=== PATIENT | female | born 1945 | race Hispanic/Latino ===

== ENCOUNTER 2023-10-16 08:45 | Emergency (ER) | payer OTHER ==
--- OUTSIDE RECORDS SUMMARY | 2023-10-16 08:57 | XMS REPORT | Continuity of Care Document ---
Author Name Unknown Address [address] [facility]. [address] [place] [address] [facility] thconnect Address [address] [facility] [address] [place] [address] Care Team Providers Care Principal Archaeologist Name Role Phone Ines Grimm Primary Care Physician [phone] Ines Grimm Attending Clinician Unavailable Deja Galvan Attending Clinician Unavailable DELPHINE TOLENTINO Attending Clinician UnavailLAKISHA Cantrell Attending Clinician Unavailable Lakisha Tompkins Attending Clinician [phone] Flynn Hernandez MD Attending Clinician [phone] Doctor Unassigned, [place] Attending Clinician Hilario Payan MD Attending Clinician [phone] HILARIO ALONZO Attending Clinician UnavailItalia Taylor MD Attending Clinician [phone] Manish Estrella - Db Attending Clinician Unavailable Tomas Rodarte MD Attending Clinician [phone] LORENA PIPER Attending Clinician Lorena Mckee MD Attending Clinician [phone] Therapy, [facility] Attending Clinician Unavailable Marlon Bernal MD Attending Clinician [phone] MARLON BERNAL Attending Clinician Unavailable Karime Dinh Attending Clinician [phone] Lab, [facility] Attending Clinician UnavailLatoya Benton Attending Clinician [phone] LATOYA ANGEL Attending Clinician UnavailFLYNN Ko Admitting Clinician LORENA Durán Admitting Clinician Esther fernandez Payers Payer Name Policy Type Policy Number Effective Date Expirati on Date Source 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 2021-07 00:00: 00 [facility] Acquired hypothyroi dism Acquired hypothyroi dism Disease Active 2021-07 00:00: 00 [facility] 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 2021-07 00:00: 00 [facility] BMI 32.0-32.9, adult BMI 32.0-32.9, adult Disease Active 2021-07 00:00: 00 [facility] Right knee pain Right knee pain Disease Active 10-28 00:00: 00 [facility] Right knee pain Right knee pain Disease Active 10-28 00:00: 00 [facility] [id number] Hepatic steatosis Problem [facility] Gastroesop hageal reflux disease GERD (gastroeso phageal reflux disease) Problem [facility] Hypertensi on HTN (hypertens ion) Problem [facility] Hypothyroi dism Hypothyroi dism Problem [facility] Neuropathy Neuropathy Problem [facility] Hyperlipid emia Hyperlipid emia Problem [facility] Asthma Asthma Problem [facility] Mixed anxiety and depressive disorder Depression with anxiety Problem [facility] [id number] Peripheral vascular disease, unspecifie d Problem [facility] Overactive bladder Overactive bladder Problem [facility] Screening for osteoporos is Screening for osteoporos is Problem [facility] [id number] Adult general medical exam Problem [facility] Primary osteoarthr itis Primary osteoarthr itis involving multiple joints Problem [facility] [id number] Type 2 diabetes mellitus with diabetic chronic kidney disease Problem [facility] [id number] Seasonal allergic rhinitis, unspecifie d trigger Problem [facility] Type II diabetes mellitus without complicati on Controlled type 2 diabetes mellitus without complicati on, unspecifie d 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 status Problem [facility] Mixed incontinen ce Mixed stress and urge urinary incontinen ce Problem [facility] Osteoarthr itis Osteoarthr itis Problem [facility] [id number] Primary osteoarthr itis of both knees Problem [facility] [id number] Carpal tunnel syndrome of right wrist Problem [facility] [id number] Hot flashes due to menopause Problem [facility] [id number] Adrenal insufficie ncy Problem [facility] Chronic kidney disease Chronic kidney disease Problem [facility] [id number] Tinnitus of right ear Problem [facility] Allergies, Adverse Reactions, Alerts Allergy Name Allergy Type Status Severity Reaction(s) Onset Date Inactive Date Treating Clinician Comments Source Codeine Allergy to substanc e Active Hallucinatio ns 4-16 00:00: 00 Other reaction( s): Unknown - See comments hallucina tions Data migrated from xTV on 09/19/15. Originall y documente d as CODEINE. [facility] CODEINE DRUG INGREDI Active Unknown-Cmnt 11-02 00:00: 00 [facility] Codeine Propensi ty to adverse reaction s Active Unknown - See comments 11-02 00:00: 00 hallucina tions [facility] codeine codeine Active hallucinatio ns Common [facility] Social History Social Habit Start Date Stop Date Quantity Comments Source History of tobacco use Cigarette Smoker [facility] Sexual orientation [facility] Alcoholic beverage intake 2023-09-29 00:00:00 2023-09-29 00:00:00 Lifetime non-drinker (finding) [facility] Tobacco use and exposure 2023-09-28 00:00:00 2023-09-28 00:00:00 Smokeless tobacco non-user [facility] Exposure to SARS-CoV-2 (event) 2022-11-09 00:00:00 2022-11-19 14:31:00 Not sure [facility] Alcohol intake 2022-11-19 00:00:00 2022-11-19 00:00:00 Lifetime non-drinker (finding) [facility] History of Social function 2022-11-19 00:00:00 2022-11-19 00:00:00 [facility] Tobacco Comment 2022-10-31 00:00:00 2022-10-31 00:00:00 Quit [address] [facility] Sex assigned at 1945 00:00:00 1945 00:00:00 [facility] Smoking Status Start Date Stop Date Source Unknown if ever smoked Commo n [facility] Ex-smoker 2023-09-28 00:00:00 2023-09-28 00:00:00 [facility] Medications Ordered Medication Name Filled Medication Name Start Date Stop Date Current Medication? Ordering Clinician Indication Dosage Frequency Signature (SIG) Comments Components Source solifenacin (VESIcare) 10 MG tablet 09-27 10:10: 28 Yes 10mg QD Take 10 mg by mouth 1 (one) time each day. Swallow tablet whole; do not crush, chew, or split. [facility] montelukast (Singulair) 10 MG tablet 09-27 10:05: 06 09-27 00:00 :00 No 1 (one) time each day at the same time. [facility] losartan (Cozaar) 100 MG tablet 09-27 10:04: 58 Yes 1{tbl} QD Take 1 tablet by mouth 1 (one) time each day. [facility] latanoprost (Xalatan) 0.005 % ophthalmic solution 09-27 10:04: 39 Yes 1 (one) time each day at the same time. [facility] glucose blood (Accu-Chek Danyell Plus) test strip 09-27 10:03: 09 Yes USE DIRECTED TO CHECK BLOOD GLUCOSE TWICE DAILY [facility] glipiZIDE (Glucotrol) 10 MG tablet 09-27 10:03: 03 Yes 10mg Take 10 mg by mouth in the morning and 10 mg in the evening. Take before meals. [facility] gabapentin (Neurontin) 100 MG capsule 09-27 10:03: 01 Yes 200mg Take 200 mg by mouth every night. [facility] estradiol (Estrace) 0.5 MG tablet 09-27 10:02: 40 09-27 00:00 :00 No 0.5 mg tablet [facility] empaglifloz in (Jardiance) 10 MG 09-27 10:02: 26 Yes 10mg QD Take 10 mg by mouth 1 (one) time each day. [facility] bisoprolol- hydroCHLORO thiazide (Ziac) 10-6.25 MG tablet 09-27 10:02: 23 Yes 1{tbl} 1 tablet. [facility] atorvastati n (Lipitor) 40 MG tablet 09-27 10:02: 16 Yes 1{tbl} 1 tablet. [facility] aspirin 81 MG chewable tablet 09-27 10:02: 11 Yes QD Chew 1 (one) time each day. [facility] amLODIPine (Norvasc) 5 MG tablet 09-27 10:02: 09 Yes 1{tbl} 1 tablet. [facility] levothyroxi ne (Synthroid, Levoxyl) 88 MCG tablet 09-27 00:00: 00 09-23 05:59 :00 Yes [id number] 88ug Take 1 tablet (88 mcg total) by mouth 1 (one) time each day before breakfast. [facility] hydrocortis one (Cortef) 5 MG tablet 2022-07 00:00: 00 11-18 04:59 :00 No [id number] Take 3 tablets (15 mg total) by mouth 1 (one) time each day in the morning AND 1 tablet (5 mg total) 1 (one) time each day before evening meal. Take 15mg at 8AM and 5mg at 3PM.. [facility] traMADoL 50 mg tablet 11-05 00:00: 00 11-13 04:59 :00 No [id number] 50mg Take 1 tablet by mouth every 6 (six) hours as needed for Pain (scale 4-6) for up to 7 days. Indication s: acute pain [facility] traMADoL 50 mg tablet 11-05 00:00: 00 11-13 04:59 :00 No [id number] 50mg Take 1 tablet by mouth every 6 (six) hours as needed for Pain (scale 4-6) for up to 7 days. Indication s: acute pain [facility] levothyroxi ne (Synthroid, Levoxyl) 88 MCG tablet 11-04 00:00: 00 10-30 04:59 :00 No [id number] 88ug Take 1 tablet (88 mcg total) by mouth 1 (one) time each day before breakfast. [facility] levothyroxi ne (Synthroid, Levoxyl) 88 MCG tablet 11-04 00:00: 00 10-30 04:59 :00 No [id number] 88ug Take 1 tablet (88 mcg total) by mouth 1 (one) time each day before breakfast. [facility] levothyroxi ne (Synthroid, Levoxyl) 88 MCG tablet 11-04 00:00: 00 09-27 00:00 :00 No [id number] 88ug Take 1 tablet (88 mcg total) by mouth 1 (one) time each day before breakfast. [facility] hydrocortis one (Cortef) 5 MG tablet 2023-0 4-18 00:00: 00 05-04 04:59 :00 No [id number] Take 3 tablets (15 mg total) by mouth 1 (one) time each day in the morning AND 1 tablet (5 mg total) 1 (one) time each day before evening meal. Take 15mg at 8AM and 5mg at 3PM.. [facility] hydrocortis one (Cortef) 5 MG tablet 18 00:00: 00 05-04 04:59 :00 No [id number] Take 3 tablets (15 mg total) by mouth 1 (one) time each day in the morning AND 1 tablet (5 mg total) 1 (one) time each day before evening meal. Take 15mg at 8AM and 5mg at 3PM.. [facility] magnesium oxide (Mag-Ox) 400 MG tablet 2021-07 12:50: 21 07-08 00:00 :00 No 1 (one) time each day at the same time. [facility] Syringe/Nee dle, Disp, (Luer Lock Safety Syringes) 21G X 1-1/2" 3 ML [facility] 2021-07 00:00: 00 Yes [id number] To draw up Solu-Steven f [facility] Needle, Disp, (Hypodermic Needle) 23G X 1" [facility] 2021-0720 00:00: 00 Yes [id number] To administer Solu-Steven f [facility] Syringe/Nee dle, Disp, (Luer Lock Safety Syringes) 21G X 1-1/2" 3 ML [facility] 2021-0720 00:00: 00 Yes [id number] To draw up Solu-Steven f [facility] Needle, Disp, (Hypodermic Needle) 23G X 1" [facility] 2021-0720 00:00: 00 Yes [id number] To administer Solu-Steven f [facility] Syringe/Nee dle, Disp, (Luer Lock Safety Syringes) 21G X 1-1/2" 3 ML [facility] 2021-0720 00:00: 00 Yes [id number] To draw up Solu-Steven f [facility] Needle, Disp, (Hypodermic Needle) 23G X 1" [facility] 2021-07-20 00:00: 00 Yes [id number] To administer Solu-Steven f [facility] Syringe/Nee dle, Disp, (Luer Lock Safety Syringes) 21G X 1-1/2" 3 ML [facility] 2021-07 00:00: 00 Yes [id number] To draw up Solu-Steven f [facility] Needle, Disp, (Hypodermic Needle) 23G X 1" [facility] 2021-07 00:00: 00 Yes [id number] To administer Solu-Steven f [facility] levothyroxi ne (Synthroid, Levoxyl) 88 MCG tablet 2021-07 00:00: 00 07-04 05:59 :00 No [id number] 88ug Take 1 tablet (88 mcg total) by mouth 1 (one) time each day before breakfast. [facility] levothyroxi ne (Synthroid, Levoxyl) 88 MCG tablet 2021-07 00:00: 00 11-04 00:00 :00 No [id number] 88ug Take 1 tablet (88 mcg total) by mouth 1 (one) time each day before breakfast. [facility] Hydrocortis one Sod Suc, PF, (Solu-STEVEN F) 100 MG reconstitut ed solution 2021-07 00:00: 00 07-09 05:59 :00 No [id number] 100mg Inject 100 mg as directed 1 (one) time for 1 dose. In the event of emergency then go to Emergency Room [facility] amLODIPine (Norvasc) 5 MG tablet 2021-07 12:28: 21 Yes 1{tbl} 1 tablet. [facility] aspirin 81 MG chewable tablet 2021-07 12:28: 21 Yes QD Chew 1 (one) time each day. [facility] atorvastati n (Lipitor) 40 MG tablet 2021-07 12:28: 21 Yes 1{tbl} 1 tablet. [facility] bisoprolol- hydroCHLORO thiazide (Ziac) 10-6.25 MG tablet 2021-07 12:28: 21 Yes 1{tbl} 1 tablet. [facility] estradiol (Estrace) 0.5 MG tablet 2021-07 12:28: 21 Yes 0.5 mg tablet [facility] glipiZIDE (Glucotrol) 10 MG tablet 2021-07 12:28: 21 Yes 1{tbl} 1 tablet. [facility] gabapentin (Neurontin) 100 MG capsule 2021-07 12:28: 21 Yes 1{capsu le} 1 capsule. [facility] glucose blood (Accu-Chek Danyell Plus) test strip 2021-07 12:28: 21 Yes USE DIRECTED TO CHECK BLOOD GLUCOSE TWICE DAILY [facility] latanoprost (Xalatan) 0.005 % ophthalmic solution 2021-07 12:28: 21 Yes 1 (one) time each day at the same time. [facility] losartan (Cozaar) 100 MG tablet 2021-07 12:28: 21 Yes 1{tbl} QD Take 1 tablet by mouth 1 (one) time each day. [facility] magnesium oxide (Mag-Ox) 400 MG tablet 2021-07 12:28: 21 Yes 1 (one) time each day at the same time. [facility] montelukast (Singulair) 10 MG tablet 2021-07 12:28: 21 Yes 1 (one) time each day at the same time. [facility] amLODIPine (Norvasc) 5 MG tablet 2021-07 12:28: 21 Yes 1{tbl} 1 tablet. [facility] aspirin 81 MG chewable tablet 2021-07 12:28: 21 Yes QD Chew 1 (one) time each day. [facility] atorvastati n (Lipitor) 40 MG tablet 2021-07 12:28: 21 Yes 1{tbl} 1 tablet. [facility] bisoprolol- hydroCHLORO thiazide (Ziac) 10-6.25 MG tablet 2021-07 12:28: 21 Yes 1{tbl} 1 tablet. [facility] estradiol (Estrace) 0.5 MG tablet 2021-07 12:28: 21 Yes 0.5 mg tablet [facility] glipiZIDE (Glucotrol) 10 MG tablet 2021-07 12:28: 21 Yes 1{tbl} 1 tablet. [facility] gabapentin (Neurontin) 100 MG capsule 2021-07 12:28: 21 Yes 1{capsu le} 1 capsule. [facility] glucose blood (Accu-Chek Danyell Plus) test strip 2021-07 12:28: 21 Yes USE DIRECTED TO CHECK BLOOD GLUCOSE TWICE DAILY [facility] latanoprost (Xalatan) 0.005 % ophthalmic solution 2021-07 12:28: 21 Yes 1 (one) time each day at the same time. [facility] losartan (Cozaar) 100 MG tablet 2021-07 12:28: 21 Yes 1{tbl} QD Take 1 tablet by mouth 1 (one) time each day. [facility] montelukast (Singulair) 10 MG tablet 2021-07 12:28: 21 Yes 1 (one) time each day at the same time. [facility] amLODIPine (Norvasc) 5 MG tablet 2021-07 12:28: 21 Yes 1{tbl} 1 tablet. [facility] aspirin 81 MG chewable tablet 2021-07 12:28: 21 Yes QD Chew 1 (one) time each day. [facility] atorvastati n (Lipitor) 40 MG tablet 2021-07 12:28: 21 Yes 1{tbl} 1 tablet. [facility] bisoprolol- hydroCHLORO thiazide (Ziac) 10-6.25 MG tablet 2021-07 12:28: 21 Yes 1{tbl} 1 tablet. [facility] estradiol (Estrace) 0.5 MG tablet 2021-07 12:28: 21 Yes 0.5 mg tablet [facility] glipiZIDE (Glucotrol) 10 MG tablet 2021-07 12:28: 21 Yes 1{tbl} 1 tablet. [facility] gabapentin (Neurontin) 100 MG capsule 2021-07 12:28: 21 Yes 1{capsu le} 1 capsule. [facility] glucose blood (Accu-Chek Danyell Plus) test strip 2021-07 12:28: 21 Yes USE DIRECTED TO CHECK BLOOD GLUCOSE TWICE DAILY [facility] latanoprost (Xalatan) 0.005 % ophthalmic solution 2021-07 12:28: 21 Yes 1 (one) time each day at the same time. [facility] losartan (Cozaar) 100 MG tablet 2021-07 12:28: 21 Yes 1{tbl} QD Take 1 tablet by mouth 1 (one) time each day. [facility] montelukast (Singulair) 10 MG tablet 2021-07 12:28: 21 Yes 1 (one) time each day at the same time. [facility] amLODIPine (Norvasc) 5 MG tablet 2021-07 12:28: 21 Yes 1{tbl} 1 tablet. [facility] aspirin 81 MG chewable tablet 2021-07 12:28: 21 Yes QD Chew 1 (one) time each day. [facility] atorvastati n (Lipitor) 40 MG tablet 2021-07 12:28: 21 Yes 1{tbl} 1 tablet. [facility] bisoprolol- hydroCHLORO thiazide (Ziac) 10-6.25 MG tablet 2021-07 12:28: 21 Yes 1{tbl} 1 tablet. [facility] estradiol (Estrace) 0.5 MG tablet 2021-07 12:28: 21 Yes 0.5 mg tablet [facility] glipiZIDE (Glucotrol) 10 MG tablet 2021-07 12:28: 21 Yes 1{tbl} 1 tablet. [facility] gabapentin (Neurontin) 100 MG capsule 2021-07 12:28: 21 Yes 1{capsu le} 1 capsule. [facility] glucose blood (Accu-Chek Danyell Plus) test strip 2021-07 12:28: 21 Yes USE DIRECTED TO CHECK BLOOD GLUCOSE TWICE DAILY [facility] latanoprost (Xalatan) 0.005 % ophthalmic solution 2021-07 12:28: 21 Yes 1 (one) time each day at the same time. [facility] losartan (Cozaar) 100 MG tablet 2021-07 12:28: 21 Yes 1{tbl} QD Take 1 tablet by mouth 1 (one) time each day. [facility] montelukast (Singulair) 10 MG tablet 2021-07 12:28: 21 Yes 1 (one) time each day at the same time. [facility] hydrocortis one (Cortef) 5 MG tablet 2021-07 00:00: 00 11-24 04:59 :00 No [id number] Take 3 tablets (15 mg total) by mouth 1 (one) time each day in the morning AND 1 tablet (5 mg total) 1 (one) time each day before evening meal. Take 15mg at 8AM and 5mg at 3PM.. [facility] hydrocortis one (Cortef) 5 MG tablet 2021-07 00:00: 00 11-24 04:59 :00 No [id number] Take 3 tablets (15 mg total) by mouth 1 (one) time each day in the morning AND 1 tablet (5 mg total) 1 (one) time each day before evening meal. Take 15mg at 8AM and 5mg at 3PM.. [facility] hydrocortis one (Cortef) 5 MG tablet 2021-07 00:00: 00 11-04 00:00 :00 No [id number] Take 3 tablets (15 mg total) by mouth 1 (one) time each day in the morning AND 1 tablet (5 mg total) 1 (one) time each day before evening meal. Take 15mg at 8AM and 5mg at 3PM.. [facility] ciprofloxac in-dexameth asone (CiproDEX) otic suspension 2021-07 0 00:00: 00 05-09 04:59 :00 No [id number] 4[drp] Q.5D Administer 4 drops into affected ear(s) in the morning and 4 drops in the evening. Do all this for 7 days. [facility] ciprofloxac in-dexameth asone (CiproDEX) otic suspension 2021-07 0 00:00: 00 05-09 04:59 :00 No [id number] 4[drp] Q.5D Administer 4 drops into affected ear(s) in the morning and 4 drops in the evening. Do all this for 7 days. [facility] losartan (Cozaar) 100 MG tablet 2021-07 0 09:23: 41 Yes 1{tbl} QD Take 1 tablet by mouth 1 (one) time each day. [facility] magnesium oxide (Mag-Ox) 400 MG tablet 2021-07 0 09:23: 41 Yes 1 (one) time each day at the same time. [facility] montelukast (Singulair) 10 MG tablet 2021-07 0-05 09:23: 41 Yes 1 (one) time each day at the same time. [facility] amLODIPine (Norvasc) 5 MG tablet 2021-07 0-05 09:23: 41 Yes 1{tbl} 1 tablet. [facility] aspirin 81 MG chewable tablet 2021-07 0-05 09:23: 41 Yes QD Chew 1 (one) time each day. [facility] atorvastati n (Lipitor) 40 MG tablet 2021-07 0-05 09:23: 41 Yes 1{tbl} 1 tablet. [facility] bisoprolol- hydroCHLORO thiazide (Ziac) 10-6.25 MG tablet 2021-07 0-05 09:23: 41 Yes 1{tbl} 1 tablet. [facility] estradiol (Estrace) 0.5 MG tablet 2021-07 005 09:23: 41 Yes 0.5 mg tablet [facility] glipiZIDE (Glucotrol) 10 MG tablet 2021-07 005 09:23: 41 Yes 1{tbl} 1 tablet. [facility] gabapentin (Neurontin) 100 MG capsule 2021-07 005 09:23: 41 Yes 1{capsu le} 1 capsule. [facility] glucose blood (Accu-Chek Danyell Plus) test strip 2021-07 005 09:23: 41 Yes USE DIRECTED TO CHECK BLOOD GLUCOSE TWICE DAILY [facility] latanoprost (Xalatan) 0.005 % ophthalmic solution 2021-07 005 09:23: 41 Yes 1 (one) time each day at the same time. [facility] losartan (Cozaar) 100 MG tablet 2021-07 005 09:23: 41 Yes 1{tbl} QD Take 1 tablet by mouth 1 (one) time each day. [facility] magnesium oxide (Mag-Ox) 400 MG tablet 2021-07 0-05 09:23: 41 Yes 1 (one) time each day at the same time. [facility] montelukast (Singulair) 10 MG tablet 2021-07 0-05 09:23: 41 Yes 1 (one) time each day at the same time. [facility] amLODIPine (Norvasc) 5 MG tablet 2021-07 0-05 09:23: 41 Yes 1{tbl} 1 tablet. [facility] aspirin 81 MG chewable tablet 2021-07 0-05 09:23: 41 Yes QD Chew 1 (one) time each day. [facility] atorvastati n (Lipitor) 40 MG tablet 2021-07 0-05 09:23: 41 Yes 1{tbl} 1 tablet. [facility] bisoprolol- hydroCHLORO thiazide (Ziac) 10-6.25 MG tablet 2021-07 0-05 09:23: 41 Yes 1{tbl} 1 tablet. [facility] estradiol (Estrace) 0.5 MG tablet 2021-07 005 09:23: 41 Yes 0.5 mg tablet [facility] glipiZIDE (Glucotrol) 10 MG tablet 2021-07 005 09:23: 41 Yes 1{tbl} 1 tablet. [facility] gabapentin (Neurontin) 100 MG capsule 2021-07 005 09:23: 41 Yes 1{capsu le} 1 capsule. [facility] glucose blood (Accu-Chek Danyell Plus) test strip 2021-07 005 09:23: 41 Yes USE DIRECTED TO CHECK BLOOD GLUCOSE TWICE DAILY [facility] latanoprost (Xalatan) 0.005 % ophthalmic solution 2021-07 005 09:23: 41 Yes 1 (one) time each day at the same time. [facility] losartan (Cozaar) 100 MG tablet 2021-07 005 09:23: 41 Yes 1{tbl} QD Take 1 tablet by mouth 1 (one) time each day. [facility] magnesium oxide (Mag-Ox) 400 MG tablet 2021-07 005 09:23: 41 Yes 1 (one) time each day at the same time. [facility] montelukast (Singulair) 10 MG tablet 2021-07 005 09:23: 41 Yes 1 (one) time each day at the same time. [facility] amLODIPine (Norvasc) 5 MG tablet 2021-07 005 09:23: 41 Yes 1{tbl} 1 tablet. [facility] aspirin 81 MG chewable tablet 2021-07 005 09:23: 41 Yes QD Chew 1 (one) time each day. [facility] atorvastati n (Lipitor) 40 MG tablet 2021-07 0-05 09:23: 41 Yes 1{tbl} 1 tablet. [facility] bisoprolol- hydroCHLORO thiazide (Ziac) 10-6.25 MG tablet 2021-07 0-05 09:23: 41 Yes 1{tbl} 1 tablet. [facility] estradiol (Estrace) 0.5 MG tablet 2021-07 0-05 09:23: 41 Yes 0.5 mg tablet [facility] glipiZIDE (Glucotrol) 10 MG tablet 2021-07 005 09:23: 41 Yes 1{tbl} 1 tablet. [facility] gabapentin (Neurontin) 100 MG capsule 2021-07 005 09:23: 41 Yes 1{capsu le} 1 capsule. [facility] glucose blood (Accu-Chek Danyell Plus) test strip 2021-07 005 09:23: 41 Yes USE DIRECTED TO CHECK BLOOD GLUCOSE TWICE DAILY [facility] latanoprost (Xalatan) 0.005 % ophthalmic solution 2021-07 005 09:23: 41 Yes 1 (one) time each day at the same time. [facility] losartan (Cozaar) 100 MG tablet 2021-07 005 09:23: 41 Yes 1{tbl} QD Take 1 tablet by mouth 1 (one) time each day. [facility] magnesium oxide (Mag-Ox) 400 MG tablet 2021-07 005 09:23: 41 Yes 1 (one) time each day at the same time. [facility] montelukast (Singulair) 10 MG tablet 2021-07 005 09:23: 41 Yes 1 (one) time each day at the same time. [facility] amLODIPine (Norvasc) 5 MG tablet 2021-07 005 09:23: 41 Yes 1{tbl} 1 tablet. [facility] aspirin 81 MG chewable tablet 2021-07 005 09:23: 41 Yes QD Chew 1 (one) time each day. [facility] atorvastati n (Lipitor) 40 MG tablet 2021-07 005 09:23: 41 Yes 1{tbl} 1 tablet. [facility] bisoprolol- hydroCHLORO thiazide (Ziac) 10-6.25 MG tablet 2021-07 0-05 09:23: 41 Yes 1{tbl} 1 tablet. [facility] estradiol (Estrace) 0.5 MG tablet 2021-07 005 09:23: 41 Yes 0.5 mg tablet [facility] glipiZIDE (Glucotrol) 10 MG tablet 2021-07 005 09:23: 41 Yes 1{tbl} 1 tablet. [facility] gabapentin (Neurontin) 100 MG capsule 2021-07 005 09:23: 41 Yes 1{capsu le} 1 capsule. [facility] glucose blood (Accu-Chek Danyell Plus) test strip 2021-07 005 09:23: 41 Yes USE DIRECTED TO CHECK BLOOD GLUCOSE TWICE DAILY [facility] latanoprost (Xalatan) 0.005 % ophthalmic solution 2021-07 005 09:23: 41 Yes 1 (one) time each day at the same time. [facility] losartan (Cozaar) 100 MG tablet 2021-07 005 09:23: 41 Yes 1{tbl} QD Take 1 tablet by mouth 1 (one) time each day. [facility] magnesium oxide (Mag-Ox) 400 MG tablet 2021-07 005 09:23: 41 Yes 1 (one) time each day at the same time. [facility] montelukast (Singulair) 10 MG tablet 2021-07 005 09:23: 41 Yes 1 (one) time each day at the same time. [facility] amLODIPine (Norvasc) 5 MG tablet 2021-07 005 09:23: 41 Yes 1{tbl} 1 tablet. [facility] aspirin 81 MG chewable tablet 2021-07 005 09:23: 41 Yes QD Chew 1 (one) time each day. [facility] atorvastati n (Lipitor) 40 MG tablet 2021-07 005 09:23: 41 Yes 1{tbl} 1 tablet. [facility] bisoprolol- hydroCHLORO thiazide (Ziac) 10-6.25 MG tablet 2021-07 005 09:23: 41 Yes 1{tbl} 1 tablet. [facility] estradiol (Estrace) 0.5 MG tablet 2021-07 005 09:23: 41 Yes 0.5 mg tablet [facility] glipiZIDE (Glucotrol) 10 MG tablet 2021-07 005 09:23: 41 Yes 1{tbl} 1 tablet. [facility] gabapentin (Neurontin) 100 MG capsule 2021-07 09:23: 41 Yes 1{capsu le} 1 capsule. [facility] glucose blood (Accu-Chek Danyell Plus) test strip 2021-07 09:23: 41 Yes USE DIRECTED TO CHECK BLOOD GLUCOSE TWICE DAILY [facility] latanoprost (Xalatan) 0.005 % ophthalmic solution 2021-07 09:23: 41 Yes 1 (one) time each day at the same time. [facility] gadobenate dimeglumine (MULTIHANCE -10 mL) injection 0.2 mL/kg 03-05 15:15: 00 03-05 15:11 :00 No [id number] .2mL/kg 0.2 mL/kg, Intravenou s, ONCE, 1 dose, On Thu03/05/22 at 1015, Routine [facility] Neomycin-Po lymyxin-HC 3.5-44300-3 Neomycin-Po lymyxin-HC 3.5-15990-7 03-04 00:00: 00 No 4{drops _into_a ffected _ear} BID Neomycin-P olymyxin-H C 3.5-36247- 1 Neomycin-Po lymyxin-HC 3.5-85159-5 Neomycin-Po lymyxin-HC 3.5-28248-2 03-04 00:00: 00 No 4{drops _into_a ffected _ear} BID Neomycin-P olymyxin-H C 3.5-91296- 1 Neomycin-Po lymyxin-HC 3.5-14706-4 Neomycin-Po lymyxin-HC 3.5-64312-8 03-04 00:00: 00 No 4{drops _into_a ffected _ear} BID Neomycin-P olymyxin-H C 3.5-09664- 1 Neomycin-Po lymyxin-HC 3.5-41500-1 Neomycin-Po lymyxin-HC 3.5-37919-6 03-04 00:00: 00 No 4{drops _into_a ffected _ear} BID Neomycin-P olymyxin-H C 3.5-62650- 1 Neomycin-Po lymyxin-HC 3.5-88869-5 Neomycin-Po lymyxin-HC 3.5-55392-8 2021-0 8-16 00:00: 00 No 4{drops _into_a ffected _ear} BID Neomycin-P olymyxin-H C 3.5-42007- 1 Neomycin-Po lymyxin-HC 3.5-49186-9 Neomycin-Po lymyxin-HC 3.5-76230-4 2021-0 8-16 00:00: 00 No 4{drops _into_a ffected _ear} BID Neomycin-P olymyxin-H C 3.5-22808- 1 Neomycin-Po lymyxin-HC 3.5-16653-5 Neomycin-Po lymyxin-HC 3.5-88537-0 2021-0 8-16 00:00: 00 No 4{drops _into_a ffected _ear} BID Neomycin-P olymyxin-H C 3.5-71021- 1 Neomycin-Po lymyxin-HC 3.5-35195-9 Neomycin-Po lymyxin-HC 3.5-45983-5 2021-0 8-16 00:00: 00 No 4{drops _into_a ffected _ear} BID Neomycin-P olymyxin-H C 3.5-57368- 1 Neomycin-Po lymyxin-HC 3.5-75862-8 Neomycin-Po lymyxin-HC 3.5-09576-1 2021-0 8-16 00:00: 00 No 4{drops _into_a ffected _ear} BID Neomycin-P olymyxin-H C 3.5-91301- 1 Neomycin-Po lymyxin-HC 3.5-78452-7 Neomycin-Po lymyxin-HC 3.5-65059-4 2021-0 8-16 00:00: 00 No 4{drops _into_a ffected _ear} BID Neomycin-P olymyxin-H C 3.5-97806- 1 Neomycin-Po lymyxin-HC 3.5-73072-1 Neomycin-Po lymyxin-HC 3.5-44748-2 2021-0 8-16 00:00: 00 No 4{drops _into_a ffected _ear} BID Neomycin-P olymyxin-H C 3.5-77172- 1 omeprazole (PriLOSEC) [address] capsule 2021- 7- 00:00: 00 Yes 20mg QD Take 20 mg by mouth 1 (one) time each day. [facility] omeprazole (PriLOSEC) [address] capsule 02-16 00:00: 00 Yes 20mg QD Take 20 mg by mouth 1 (one) time each day. [facility] omeprazole (PriLOSEC) [address] capsule 02-16 00:00: 00 Yes 20mg QD Take 20 mg by mouth 1 (one) time each day. [facility] omeprazole (PriLOSEC) [address] capsule 02-16 00:00: 00 Yes 20mg QD Take 20 mg by mouth 1 (one) time each day. [facility] omeprazole (PriLOSEC) [address] capsule 02-16 00:00: 00 Yes 20mg QD Take 20 mg by mouth 1 (one) time each day. [facility] omeprazole (PriLOSEC) [address] capsule 02-16 00:00: 00 Yes 20mg QD Take 20 mg by mouth 1 (one) time each day. [facility] omeprazole (PriLOSEC) [address] capsule 02-16 00:00: 00 Yes 20mg QD Take 20 mg by mouth 1 (one) time each day. [facility] omeprazole (PriLOSEC) [address] capsule 02-16 00:00: 00 Yes 20mg QD Take 20 mg by mouth 1 (one) time each day. [facility] omeprazole (PriLOSEC) [address] capsule 02-16 00:00: 00 Yes 20mg QD Take 20 mg by mouth 1 (one) time each day. [facility] omeprazole (PriLOSEC) [address] capsule 02-16 00:00: 00 Yes 20mg QD Take 20 mg by mouth 1 (one) time each day. [facility] levothyroxi ne (Synthroid, Levoxyl) 88 MCG tablet 01-28 00:00: 00 Yes TAKE 1 TABLET BY MOUTH ONCE DAILY ON AN EMPTY STOMACH IN THE MORNING [facility] levothyroxi ne (Synthroid, Levoxyl) 88 MCG tablet 01-28 00:00: 00 Yes TAKE 1 TABLET BY MOUTH ONCE DAILY ON AN EMPTY STOMACH IN THE MORNING [facility] levothyroxi ne (Synthroid, Levoxyl) 88 MCG tablet 2021-0 12 00:00: 00 Yes TAKE 1 TABLET BY MOUTH ONCE DAILY ON AN EMPTY STOMACH IN THE MORNING [facility] levothyroxi ne (Synthroid, Levoxyl) 88 MCG tablet 2021-0 12 00:00: 00 Yes TAKE 1 TABLET BY MOUTH ONCE DAILY ON AN EMPTY STOMACH IN THE MORNING [facility] levothyroxi ne (Synthroid, Levoxyl) 88 MCG tablet 2021-0 12 00:00: 00 Yes TAKE 1 TABLET BY MOUTH ONCE DAILY ON AN EMPTY STOMACH IN THE MORNING [facility] levothyroxi ne (Synthroid, Levoxyl) 88 MCG tablet 2021-0 12 00:00: 00 07-08 00:00 :00 No TAKE 1 TABLET BY MOUTH ONCE DAILY ON AN EMPTY STOMACH IN THE MORNING [facility] levothyroxi ne (Synthroid, Levoxyl) 88 MCG tablet 2021-0 12 00:00: 00 07-08 00:00 :00 No TAKE 1 TABLET BY MOUTH ONCE DAILY ON AN EMPTY STOMACH IN THE MORNING [facility] busPIRone HCl 5 MG busPIRone HCl 5 MG 2020-0 8-10 00:00: 00 No 1{table t} busPIRone HCl 5 MG busPIRone HCl 5 MG busPIRone HCl 5 MG 1-0 8-10 00:00: 00 No 1{table t} busPIRone HCl 5 MG busPIRone HCl 5 MG busPIRone HCl 5 MG 1-0 8-10 00:00: 00 No 1{table t} busPIRone HCl 5 MG busPIRone HCl 5 MG busPIRone HCl 5 MG 1-0 8-10 00:00: 00 No 1{table t} busPIRone HCl 5 MG Diclofenac Sodium 1 % gel 01-18 00:00: 00 Yes [id number] 05 Apply to area(s) 2 (two) times daily as needed for Pain (scale 4-6) (Apply 2 g do not exceed 4 g in a day). [facility] Diclofenac Sodium 1 % gel 01-18 00:00: 00 Yes [id number] 05 Apply to area(s) 2 (two) times daily as needed for Pain (scale 4-6) (Apply 2 g do not exceed 4 g in a day). [facility] Diclofenac Sodium 1 % gel 2020-0 7- 00:00: 00 Yes [id number] 05 Apply to area(s) 2 (two) times daily as needed for Pain (scale 4-6) (Apply 2 g do not exceed 4 g in a day). [facility] Diclofenac Sodium 1 % gel 2020-0 7- 00:00: 00 Yes [id number] 05 Apply to area(s) 2 (two) times daily as needed for Pain (scale 4-6) (Apply 2 g do not exceed 4 g in a day). [facility] Diclofenac Sodium 1 % gel 2020-0 7- 00:00: 00 Yes [id number] 05 Apply to area(s) 2 (two) times daily as needed for Pain (scale 4-6) (Apply 2 g do not exceed 4 g in a day). [facility] Diclofenac Sodium 1 % gel 2020-0 7- 00:00: 00 Yes [id number] 05 Apply to area(s) 2 (two) times daily as needed for Pain (scale 4-6) (Apply 2 g do not exceed 4 g in a day). [facility] Diclofenac Sodium 1 % gel 2020-0 7- 00:00: 00 Yes [id number] 05 Apply to area(s) 2 (two) times daily as needed for Pain (scale 4-6) (Apply 2 g do not exceed 4 g in a day). [facility] Diclofenac Sodium 1 % gel 2020-0 7- 00:00: 00 Yes [id number] 05 Apply to area(s) 2 (two) times daily as needed for Pain (scale 4-6) (Apply 2 g do not exceed 4 g in a day). [facility] Diclofenac Sodium 1 % gel 2020-0 7- 00:00: 00 Yes [id number] 05 Apply to area(s) 2 (two) times daily as needed for Pain (scale 4-6) (Apply 2 g do not exceed 4 g in a day). [facility] Diclofenac Sodium 1 % gel 2020-0 7-02 00:00: 00 Yes [id number] 05 Apply to area(s) 2 (two) times daily as needed for Pain (scale 4-6) (Apply 2 g do not exceed 4 g in a day). [facility] Diclofenac Sodium 1 % gel 2020-0 - 00:00: 00 Yes [id number] 05 Apply to area(s) 2 (two) times daily as needed for Pain (scale 4-6) (Apply 2 g do not exceed 4 g in a day). [facility] Diclofenac Sodium 1 % gel 2020-0 - 00:00: 00 Yes [id number] 05 Apply to area(s) 2 (two) times daily as needed for Pain (scale 4-6) (Apply 2 g do not exceed 4 g in a day). [facility] Diclofenac Sodium 1 % gel 2020-0 - 00:00: 00 Yes [id number] 05 Apply to area(s) 2 (two) times daily as needed for Pain (scale 4-6) (Apply 2 g do not exceed 4 g in a day). [facility] Diclofenac Sodium 1 % gel 2020-0 01-18 00:00: 00 Yes [id number] 05 Apply to area(s) 2 (two) times daily as needed for Pain (scale 4-6) (Apply 2 g do not exceed 4 g in a day). [facility] Diclofenac Sodium 1 % gel 2020-0 01-18 00:00: 00 Yes [id number] 05 Apply to area(s) 2 (two) times daily as needed for Pain (scale 4-6) (Apply 2 g do not exceed 4 g in a day). [facility] Diclofenac Sodium 1 % gel 2020-0 - 00:00: 00 Yes [id number] 05 Apply to area(s) 2 (two) times daily as needed for Pain (scale 4-6) (Apply 2 g do not exceed 4 g in a day). [facility] Diclofenac Sodium 1 % gel 2020-0 7- 00:00: 00 Yes [id number] 05 Apply to area(s) 2 (two) times daily as needed for Pain (scale 4-6) (Apply 2 g do not exceed 4 g in a day). [facility] Diclofenac Sodium 1 % gel 2020-0 702 00:00: 00 Yes [id number] 05 Apply to area(s) 2 (two) times daily as needed for Pain (scale 4-6) (Apply 2 g do not exceed 4 g in a day). [facility] Diclofenac Sodium 1 % gel 2020-0 01-18 00:00: 00 Yes [id number] 05 Apply to area(s) 2 (two) times daily as needed for Pain (scale 4-6) (Apply 2 g do not exceed 4 g in a day). [facility] Diclofenac Sodium 1 % gel 2019-0 01-18 00:00: 00 Yes [id number] 05 Apply to area(s) 2 (two) times daily as needed for Pain (scale 4-6) (Apply 2 g do not exceed 4 g in a day). [facility] Diclofenac Sodium 1 % gel 2019-0 01-18 00:00: 00 Yes [id number] 05 Apply to area(s) 2 (two) times daily as needed for Pain (scale 4-6) (Apply 2 g do not exceed 4 g in a day). [facility] Diclofenac Sodium 1 % gel 2019-0 01-18 00:00: 00 Yes [id number] 05 Apply to area(s) 2 (two) times daily as needed for Pain (scale 4-6) (Apply 2 g do not exceed 4 g in a day). [facility] Diclofenac Sodium 1 % gel 01-18 00:00: 00 Yes [id number] Apply to area(s) 2 (two) times daily as needed for Pain (scale 4-6) (Apply 2 g do not exceed 4 g in a day). [facility] Diclofenac Sodium 1 % gel 0 01-18 00:00: 00 Yes [id number] 05 Apply to area(s) 2 (two) times daily as needed for Pain (scale 4-6) (Apply 2 g do not exceed 4 g in a day). [facility] GLIPIZIDE ORAL 03-31 21:28: 34 Yes Take by mouth. [facility] GLIPIZIDE ORAL 03-31 21:28: 34 Yes Take by mouth. [facility] GLIPIZIDE ORAL 03-31 21:28: 34 Yes Take by mouth. [facility] GLIPIZIDE ORAL 03-31 21:28: 34 Yes Take by mouth. [facility] GLIPIZIDE ORAL 03-31 21:28: 34 Yes Take by mouth. [facility] GLIPIZIDE ORAL 03-31 21:28: 34 Yes Take by mouth. [facility] GLIPIZIDE ORAL 03-31 21:28: 34 Yes Take by mouth. [facility] GLIPIZIDE ORAL 03-31 16:28: 34 Yes Take by mouth. [facility] GLIPIZIDE ORAL 03-31 16:28: 34 Yes Take by mouth. [facility] GLIPIZIDE ORAL 03-31 16:28: 34 Yes Take by mouth. [facility] GLIPIZIDE ORAL 03-31 16:28: 34 Yes Take by mouth. [facility] GLIPIZIDE ORAL 03-31 16:28: 34 Yes Take by mouth. [facility] GLIPIZIDE ORAL 03-31 16:28: 34 Yes Take by mouth. [facility] GLIPIZIDE ORAL 03-31 16:28: 34 Yes Take by mouth. [facility] GLIPIZIDE ORAL 03-31 16:28: 34 Yes Take by mouth. [facility] GLIPIZIDE ORAL 03-31 16:28: 34 Yes Take by mouth. [facility] GLIPIZIDE ORAL 03-31 16:28: 34 Yes Take by mouth. [facility] GLIPIZIDE ORAL 03-31 16:28: 34 Yes Take by mouth. [facility] GLIPIZIDE ORAL 03-31 16:28: 34 Yes Take by mouth. [facility] GLIPIZIDE ORAL 03-31 16:28: 34 Yes Take by mouth. [facility] GLIPIZIDE ORAL 03-31 16:28: 34 Yes Take by mouth. [facility] GLIPIZIDE ORAL 03-31 16:28: 34 Yes Take by mouth. [facility] GLIPIZIDE ORAL 03-31 16:28: 34 Yes Take by mouth. [facility] GLIPIZIDE ORAL 03-31 16:28: 34 Yes Take by mouth. [facility] GLIPIZIDE ORAL 03-31 16:28: 34 Yes Take by mouth. [facility] losartan (COZAAR) 100 mg tablet 10-28 19:24: 36 Yes 100mg Take 100 mg by mouth daily. [facility] cloniDINE (CATAPRES) 0.1 mg/ml suspension 10-28 19:24: 36 Yes .1mg Take 0.1 mg by mouth 3 (three) times daily. [facility] ALBUTEROL INHALE 10-28 19:24: 36 Yes Inhale. [facility] atorvastati n (LIPITOR) 10 mg tablet 10-28 19:24: 36 Yes 10mg Take 10 mg by mouth at bedtime. [facility] losartan (COZAAR) 100 mg tablet 10-28 19:24: 36 Yes 100mg Take 100 mg by mouth daily. [facility] cloniDINE (CATAPRES) 0.1 mg/ml suspension 10-28 19:24: 36 Yes .1mg Take 0.1 mg by mouth 3 (three) times daily. [facility] ALBUTEROL INHALE 10-28 19:24: 36 Yes Inhale. [facility] atorvastati n (LIPITOR) 10 mg tablet 10-28 19:24: 36 Yes 10mg Take 10 mg by mouth at bedtime. [facility] losartan (COZAAR) 100 mg tablet 10-28 19:24: 36 Yes 100mg Take 100 mg by mouth daily. [facility] cloniDINE (CATAPRES) 0.1 mg/ml suspension 10-28 19:24: 36 Yes .1mg Take 0.1 mg by mouth 3 (three) times daily. [facility] ALBUTEROL INHALE 10-28 19:24: 36 Yes Inhale. [facility] atorvastati n (LIPITOR) 10 mg tablet 10-28 19:24: 36 Yes 10mg Take 10 mg by mouth at bedtime. [facility] losartan (COZAAR) 100 mg tablet 10-28 19:24: 36 Yes 100mg Take 100 mg by mouth daily. [facility] cloniDINE (CATAPRES) 0.1 mg/ml suspension 10-28 19:24: 36 Yes .1mg Take 0.1 mg by mouth 3 (three) times daily. [facility] ALBUTEROL INHALE 10-28 19:24: 36 Yes Inhale. [facility] atorvastati n (LIPITOR) 10 mg tablet 10-28 19:24: 36 Yes 10mg Take 10 mg by mouth at bedtime. [facility] losartan (COZAAR) 100 mg tablet 10-28 19:24: 36 Yes 100mg Take 100 mg by mouth daily. [facility] cloniDINE (CATAPRES) 0.1 mg/ml suspension 10-28 19:24: 36 Yes .1mg Take 0.1 mg by mouth 3 (three) times daily. [facility] ALBUTEROL INHALE 10-28 19:24: 36 Yes Inhale. [facility] atorvastati n (LIPITOR) 10 mg tablet 10-28 19:24: 36 Yes 10mg Take 10 mg by mouth at bedtime. [facility] losartan (COZAAR) 100 mg tablet 10-28 19:24: 36 Yes 100mg Take 100 mg by mouth daily. [facility] cloniDINE (CATAPRES) 0.1 mg/ml suspension 10-28 19:24: 36 Yes .1mg Take 0.1 mg by mouth 3 (three) times daily. [facility] ALBUTEROL INHALE 10-28 19:24: 36 Yes Inhale. [facility] atorvastati n (LIPITOR) 10 mg tablet 10-28 19:24: 36 Yes 10mg Take 10 mg by mouth at bedtime. [facility] losartan (COZAAR) 100 mg tablet 10-28 19:24: 36 Yes 100mg Take 100 mg by mouth daily. [facility] cloniDINE (CATAPRES) 0.1 mg/ml suspension 10-28 19:24: 36 Yes .1mg Take 0.1 mg by mouth 3 (three) times daily. [facility] ALBUTEROL INHALE 10-28 19:24: 36 Yes Inhale. [facility] atorvastati n (LIPITOR) 10 mg tablet 10-28 19:24: 36 Yes 10mg Take 10 mg by mouth at bedtime. [facility] PREMARIN 1.25 MG ORAL TAB 10-28 19:20: 59 Yes once daily [facility] SYMBICORT 160-4.5 MCG/ACTUATI ON INHALE HFAA 10-28 19:20: 59 Yes 2 puffs BID prn [facility] VYTORIN 10-20 10-20 MG ORAL TAB 10-28 19:20: 59 Yes once daily at bedtime [facility] PREMARIN 1.25 MG ORAL TAB 10-28 19:20: 59 Yes once daily [facility] OMEPRAZOLE 20 MG ORAL TBEC 10-28 19:20: 59 Yes once daily [facility] ASPIRIN 81 MG ORAL CHEW 10-28 19:20: 59 Yes once daily [facility] LEVOTHYROXI NE 125 MCG ORAL TAB 10-28 19:20: 59 Yes once daily [facility] OMEPRAZOLE 20 MG ORAL TBEC 10-28 19:20: 59 Yes once daily [facility] ASPIRIN 81 MG ORAL CHEW 10-28 19:20: 59 Yes once daily [facility] LEVOTHYROXI NE 125 MCG ORAL TAB 10-28 19:20: 59 Yes once daily [facility] SYMBICORT 160-4.5 MCG/ACTUATI ON INHALE HFAA 10-28 19:20: 59 Yes 2 puffs BID prn [facility] VYTORIN 10-20 10-20 MG ORAL TAB 10-28 19:20: 59 Yes once daily at bedtime [facility] PREMARIN 1.25 MG ORAL TAB 10-28 19:20: 59 Yes once daily [facility] OMEPRAZOLE 20 MG ORAL TBEC 10-28 19:20: 59 Yes once daily [facility] ASPIRIN 81 MG ORAL CHEW 10-28 19:20: 59 Yes once daily [facility] LEVOTHYROXI NE 125 MCG ORAL TAB 10-28 19:20: 59 Yes once daily [facility] SYMBICORT 160-4.5 MCG/ACTUATI ON INHALE HFAA 10-28 19:20: 59 Yes 2 puffs BID prn [facility] VYTORIN 10-20 10-20 MG ORAL TAB 10-28 19:20: 59 Yes once daily at bedtime [facility] PREMARIN 1.25 MG ORAL TAB 10-28 19:20: 59 Yes once daily [facility] OMEPRAZOLE 20 MG ORAL TBEC 10-28 19:20: 59 Yes once daily [facility] ASPIRIN 81 MG ORAL CHEW 10-28 19:20: 59 Yes once daily [facility] LEVOTHYROXI NE 125 MCG ORAL TAB 10-28 19:20: 59 Yes once daily [facility] SYMBICORT 160-4.5 MCG/ACTUATI ON INHALE HFAA 10-28 19:20: 59 Yes 2 puffs BID prn [facility] VYTORIN 10-20 10-20 MG ORAL TAB 10-28 19:20: 59 Yes once daily at bedtime [facility] PREMARIN 1.25 MG ORAL TAB 10-28 19:20: 59 Yes once daily [facility] OMEPRAZOLE 20 MG ORAL TBEC 10-28 19:20: 59 Yes [facility] ASPIRIN 81 MG ORAL CHEW 10-28 19:20: 59 Yes once daily [facility] LEVOTHYROXI NE 125 MCG ORAL TAB 10-28 19:20: 59 Yes once daily [facility] SYMBICORT 160-4.5 MCG/ACTUATI ON INHALE HFAA 10-28 19:20: 59 Yes 2 puffs BID prn [facility] VYTORIN 10-20 10-20 MG ORAL TAB 10-28 19:20: 59 Yes [facility] PREMARIN 1.25 MG ORAL TAB 10-28 19:20: 59 Yes once daily [facility] OMEPRAZOLE 20 MG ORAL TBEC 10-28 19:20: 59 Yes once daily [facility] ASPIRIN 81 MG ORAL CHEW 10-28 19:20: 59 Yes once daily [facility] SYMBICORT 160-4.5 MCG/ACTUATI ON INHALE HFAA 10-28 19:20: 59 Yes 2 puffs BID prn [facility] LEVOTHYROXI NE 125 MCG ORAL TAB 10-28 19:20: 59 Yes once daily [facility] SYMBICORT 160-4.5 MCG/ACTUATI ON INHALE HFAA 10-28 19:20: 59 Yes 2 puffs BID prn [facility] VYTORIN 10-20 10-20 MG ORAL TAB 10-28 19:20: 59 Yes once daily at bedtime [facility] VYTORIN 10-20 10-20 MG ORAL TAB 10-28 19:20: 59 Yes once daily at bedtime [facility] PREMARIN 1.25 MG ORAL TAB 10-28 19:20: 59 Yes once daily [facility] OMEPRAZOLE 20 MG ORAL TBEC 10-28 19:20: 59 Yes once daily [facility] ASPIRIN 81 MG ORAL CHEW 10-28 19:20: 59 Yes once daily [facility] LEVOTHYROXI NE 125 MCG ORAL TAB 10-28 19:20: 59 Yes once daily [facility] losartan (COZAAR) 100 mg tablet 10-28 14:24: 36 Yes 100mg Take 100 mg by mouth daily. [facility] cloniDINE (CATAPRES) 0.1 mg/ml suspension 10-28 14:24: 36 Yes .1mg Take 0.1 mg by mouth 3 (three) times daily. [facility] ALBUTEROL INHALE 10-28 14:24: 36 Yes Inhale. [facility] atorvastati n (LIPITOR) 10 mg tablet 10-28 14:24: 36 Yes 10mg Take 10 mg by mouth at bedtime. [facility] losartan (COZAAR) 100 mg tablet 10-28 14:24: 36 Yes 100mg Take 100 mg by mouth daily. [facility] cloniDINE (CATAPRES) 0.1 mg/ml suspension 10-28 14:24: 36 Yes .1mg Take 0.1 mg by mouth 3 (three) times daily. [facility] ALBUTEROL INHALE 10-28 14:24: 36 Yes Inhale. [facility] atorvastati n (LIPITOR) 10 mg tablet 10-28 14:24: 36 Yes 10mg Take 10 mg by mouth at bedtime. [facility] losartan (COZAAR) 100 mg tablet 10-28 14:24: 36 Yes 100mg Take 100 mg by mouth daily. [facility] cloniDINE (CATAPRES) 0.1 mg/ml suspension 10-28 14:24: 36 Yes .1mg Take 0.1 mg by mouth 3 (three) times daily. [facility] ALBUTEROL INHALE 10-28 14:24: 36 Yes Inhale. [facility] atorvastati n (LIPITOR) 10 mg tablet 10-28 14:24: 36 Yes 10mg Take 10 mg by mouth at bedtime. [facility] losartan (COZAAR) 100 mg tablet 10-28 14:24: 36 Yes 100mg Take 100 mg by mouth daily. [facility] cloniDINE (CATAPRES) 0.1 mg/ml suspension 10-28 14:24: 36 Yes .1mg Take 0.1 mg by mouth 3 (three) times daily. [facility] ALBUTEROL INHALE 10-28 14:24: 36 Yes Inhale. [facility] atorvastati n (LIPITOR) 10 mg tablet 10-28 14:24: 36 Yes 10mg Take 10 mg by mouth at bedtime. [facility] losartan (COZAAR) 100 mg tablet 10-28 14:24: 36 Yes 100mg Take 100 mg by mouth daily. [facility] cloniDINE (CATAPRES) 0.1 mg/ml suspension 10-28 14:24: 36 Yes .1mg Take 0.1 mg by mouth 3 (three) times daily. [facility] ALBUTEROL INHALE 10-28 14:24: 36 Yes Inhale. [facility] atorvastati n (LIPITOR) 10 mg tablet 10-28 14:24: 36 Yes 10mg Take 10 mg by mouth at bedtime. [facility] losartan (COZAAR) 100 mg tablet 10-28 14:24: 36 Yes 100mg Take 100 mg by mouth daily. [facility] cloniDINE (CATAPRES) 0.1 mg/ml suspension 10-28 14:24: 36 Yes .1mg Take 0.1 mg by mouth 3 (three) times daily. [facility] ALBUTEROL INHALE 10-28 14:24: 36 Yes Inhale. [facility] atorvastati n (LIPITOR) 10 mg tablet 10-28 14:24: 36 Yes 10mg Take 10 mg by mouth at bedtime. [facility] losartan (COZAAR) 100 mg tablet 10-28 14:24: 36 Yes 100mg Take 100 mg by mouth daily. [facility] cloniDINE (CATAPRES) 0.1 mg/ml suspension 10-28 14:24: 36 Yes .1mg Take 0.1 mg by mouth 3 (three) times daily. [facility] ALBUTEROL INHALE 10-28 14:24: 36 Yes Inhale. [facility] atorvastati n (LIPITOR) 10 mg tablet 10-28 14:24: 36 Yes 10mg Take 10 mg by mouth at bedtime. [facility] losartan (COZAAR) 100 mg tablet 10-28 14:24: 36 Yes 100mg Take 100 mg by mouth daily. [facility] cloniDINE (CATAPRES) 0.1 mg/ml suspension 10-28 14:24: 36 Yes .1mg Take 0.1 mg by mouth 3 (three) times daily. [facility] ALBUTEROL INHALE 10-28 14:24: 36 Yes Inhale. [facility] atorvastati n (LIPITOR) 10 mg tablet 10-28 14:24: 36 Yes 10mg Take 10 mg by mouth at bedtime. [facility] losartan (COZAAR) 100 mg tablet 10-28 14:24: 36 Yes 100mg Take 100 mg by mouth daily. [facility] cloniDINE (CATAPRES) 0.1 mg/ml suspension 10-28 14:24: 36 Yes .1mg Take 0.1 mg by mouth 3 (three) times daily. [facility] ALBUTEROL INHALE 10-28 14:24: 36 Yes Inhale. [facility] atorvastati n (LIPITOR) 10 mg tablet 10-28 14:24: 36 Yes 10mg Take 10 mg by mouth at bedtime. [facility] losartan (COZAAR) 100 mg tablet 10-28 14:24: 36 Yes 100mg Take 100 mg by mouth daily. [facility] cloniDINE (CATAPRES) 0.1 mg/ml suspension 10-28 14:24: 36 Yes .1mg Take 0.1 mg by mouth 3 (three) times daily. [facility] ALBUTEROL INHALE 10-28 14:24: 36 Yes Inhale. [facility] atorvastati n (LIPITOR) 10 mg tablet 10-28 14:24: 36 Yes 10mg Take 10 mg by mouth at bedtime. [facility] losartan (COZAAR) 100 mg tablet 10-28 14:24: 36 Yes 100mg Take 100 mg by mouth daily. [facility] cloniDINE (CATAPRES) 0.1 mg/ml suspension 10-28 14:24: 36 Yes .1mg Take 0.1 mg by mouth 3 (three) times daily. [facility] ALBUTEROL INHALE 10-28 14:24: 36 Yes Inhale. [facility] atorvastati n (LIPITOR) 10 mg tablet 10-28 14:24: 36 Yes 10mg Take 10 mg by mouth at bedtime. [facility] losartan (COZAAR) 100 mg tablet 10-28 14:24: 36 Yes 100mg Take 100 mg by mouth daily. [facility] cloniDINE (CATAPRES) 0.1 mg/ml suspension 10-28 14:24: 36 Yes .1mg Take 0.1 mg by mouth 3 (three) times daily. [facility] ALBUTEROL INHALE 10-28 14:24: 36 Yes Inhale. [facility] atorvastati n (LIPITOR) 10 mg tablet 10-28 14:24: 36 Yes 10mg Take 10 mg by mouth at bedtime. [facility] losartan (COZAAR) 100 mg tablet 10-28 14:24: 36 Yes 100mg Take 100 mg by mouth daily. [facility] cloniDINE (CATAPRES) 0.1 mg/ml suspension 10-28 14:24: 36 Yes .1mg Take 0.1 mg by mouth 3 (three) times daily. [facility] ALBUTEROL INHALE 10-28 14:24: 36 Yes Inhale. [facility] atorvastati n (LIPITOR) 10 mg tablet 10-28 14:24: 36 Yes 10mg Take 10 mg by mouth at bedtime. [facility] losartan (COZAAR) 100 mg tablet 10-28 14:24: 36 Yes 100mg Take 100 mg by mouth daily. [facility] cloniDINE (CATAPRES) 0.1 mg/ml suspension 10-28 14:24: 36 Yes .1mg Take 0.1 mg by mouth 3 (three) times daily. [facility] ALBUTEROL INHALE 10-28 14:24: 36 Yes Inhale. [facility] atorvastati n (LIPITOR) 10 mg tablet 10-28 14:24: 36 Yes 10mg Take 10 mg by mouth at bedtime. [facility] losartan (COZAAR) 100 mg tablet 10-28 14:24: 36 Yes 100mg Take 100 mg by mouth daily. [facility] cloniDINE (CATAPRES) 0.1 mg/ml suspension 10-28 14:24: 36 Yes .1mg Take 0.1 mg by mouth 3 (three) times daily. [facility] ALBUTEROL INHALE 10-28 14:24: 36 Yes Inhale. [facility] atorvastati n (LIPITOR) 10 mg tablet 10-28 14:24: 36 Yes 10mg Take 10 mg by mouth at bedtime. [facility] losartan (COZAAR) 100 mg tablet 10-28 14:24: 36 Yes 100mg Take 100 mg by mouth daily. [facility] cloniDINE (CATAPRES) 0.1 mg/ml suspension 10-28 14:24: 36 Yes .1mg Take 0.1 mg by mouth 3 (three) times daily. [facility] ALBUTEROL INHALE 10-28 14:24: 36 Yes Inhale. [facility] atorvastati n (LIPITOR) 10 mg tablet 10-28 14:24: 36 Yes 10mg Take 10 mg by mouth at bedtime. [facility] losartan (COZAAR) 100 mg tablet 10-28 14:24: 36 Yes 100mg Take 100 mg by mouth daily. [facility] cloniDINE (CATAPRES) 0.1 mg/ml suspension 10-28 14:24: 36 Yes .1mg Take 0.1 mg by mouth 3 (three) times daily. [facility] ALBUTEROL INHALE 10-28 14:24: 36 Yes Inhale. [facility] atorvastati n (LIPITOR) 10 mg tablet 10-28 14:24: 36 Yes 10mg Take 10 mg by mouth at bedtime. [facility] losartan (COZAAR) 100 mg tablet 10-28 14:24: 36 Yes 100mg Take 100 mg by mouth daily. [facility] cloniDINE (CATAPRES) 0.1 mg/ml suspension 10-28 14:24: 36 Yes .1mg Take 0.1 mg by mouth 3 (three) times daily. [facility] ALBUTEROL INHALE 10-28 14:24: 36 Yes Inhale. [facility] atorvastati n (LIPITOR) 10 mg tablet 10-28 14:24: 36 Yes 10mg Take 10 mg by mouth at bedtime. [facility] SYMBICORT 160-4.5 MCG/ACTUATI ON INHALE HFAA 10-28 14:20: 59 Yes 2 puffs BID prn [facility] VYTORIN 10-20 10-20 MG ORAL TAB 10-28 14:20: 59 Yes once daily at bedtime [facility] PREMARIN 1.25 MG ORAL TAB 10-28 14:20: 59 Yes once daily [facility] OMEPRAZOLE 20 MG ORAL TBEC 10-28 14:20: 59 Yes once daily [facility] ASPIRIN 81 MG ORAL CHEW 10-28 14:20: 59 Yes once daily [facility] LEVOTHYROXI NE 125 MCG ORAL TAB 10-28 14:20: 59 Yes once daily [facility] SYMBICORT 160-4.5 MCG/ACTUATI ON INHALE HFAA 10-28 14:20: 59 Yes 2 puffs BID prn [facility] VYTORIN 10-20 10-20 MG ORAL TAB 10-28 14:20: 59 Yes once daily at bedtime [facility] PREMARIN 1.25 MG ORAL TAB 10-28 14:20: 59 Yes once daily [facility] OMEPRAZOLE 20 MG ORAL TBEC 10-28 14:20: 59 Yes once daily [facility] ASPIRIN 81 MG ORAL CHEW 10-28 14:20: 59 Yes once daily [facility] LEVOTHYROXI NE 125 MCG ORAL TAB 10-28 14:20: 59 Yes once daily [facility] SYMBICORT 160-4.5 MCG/ACTUATI ON INHALE HFAA 10-28 14:20: 59 Yes 2 puffs BID prn [facility] VYTORIN 10-20 10-20 MG ORAL TAB 10-28 14:20: 59 Yes once daily at bedtime [facility] PREMARIN 1.25 MG ORAL TAB 10-28 14:20: 59 Yes once daily [facility] OMEPRAZOLE 20 MG ORAL TBEC 10-28 14:20: 59 Yes once daily [facility] ASPIRIN 81 MG ORAL CHEW 10-28 14:20: 59 Yes once daily [facility] LEVOTHYROXI NE 125 MCG ORAL TAB 10-28 14:20: 59 Yes once daily [facility] SYMBICORT 160-4.5 MCG/ACTUATI ON INHALE HFAA 10-28 14:20: 59 Yes 2 puffs BID prn [facility] VYTORIN 10-20 10-20 MG ORAL TAB 10-28 14:20: 59 Yes once daily at bedtime [facility] PREMARIN 1.25 MG ORAL TAB 10-28 14:20: 59 Yes once daily [facility] OMEPRAZOLE 20 MG ORAL TBEC 10-28 14:20: 59 Yes once daily [facility] ASPIRIN 81 MG ORAL CHEW 10-28 14:20: 59 Yes once daily [facility] LEVOTHYROXI NE 125 MCG ORAL TAB 10-28 14:20: 59 Yes once daily [facility] SYMBICORT 160-4.5 MCG/ACTUATI ON INHALE HFAA 10-28 14:20: 59 Yes 2 puffs BID prn [facility] VYTORIN 10-20 10-20 MG ORAL TAB 10-28 14:20: 59 Yes once daily at bedtime [facility] PREMARIN 1.25 MG ORAL TAB 10-28 14:20: 59 Yes once daily [facility] OMEPRAZOLE 20 MG ORAL TBEC 10-28 14:20: 59 Yes once daily [facility] ASPIRIN 81 MG ORAL CHEW 10-28 14:20: 59 Yes once daily [facility] LEVOTHYROXI NE 125 MCG ORAL TAB 10-28 14:20: 59 Yes once daily [facility] SYMBICORT 160-4.5 MCG/ACTUATI ON INHALE HFAA 10-28 14:20: 59 Yes 2 puffs BID prn [facility] VYTORIN 10-20 10-20 MG ORAL TAB 10-28 14:20: 59 Yes once daily at bedtime [facility] PREMARIN 1.25 MG ORAL TAB 10-28 14:20: 59 Yes once daily [facility] OMEPRAZOLE 20 MG ORAL TBEC 10-28 14:20: 59 Yes once daily [facility] ASPIRIN 81 MG ORAL CHEW 10-28 14:20: 59 Yes once daily [facility] LEVOTHYROXI NE 125 MCG ORAL TAB 10-28 14:20: 59 Yes once daily [facility] SYMBICORT 160-4.5 MCG/ACTUATI ON INHALE HFAA 10-28 14:20: 59 Yes 2 puffs BID prn [facility] VYTORIN 10-20 10-20 MG ORAL TAB 10-28 14:20: 59 Yes once daily at bedtime [facility] PREMARIN 1.25 MG ORAL TAB 10-28 14:20: 59 Yes once daily [facility] OMEPRAZOLE 20 MG ORAL TBEC 10-28 14:20: 59 Yes once daily [facility] ASPIRIN 81 MG ORAL CHEW 10-28 14:20: 59 Yes once daily [facility] LEVOTHYROXI NE 125 MCG ORAL TAB 10-28 14:20: 59 Yes once daily [facility] SYMBICORT 160-4.5 MCG/ACTUATI ON INHALE HFAA 10-28 14:20: 59 Yes 2 puffs BID prn [facility] VYTORIN 10-20 10-20 MG ORAL TAB 10-28 14:20: 59 Yes once daily at bedtime [facility] PREMARIN 1.25 MG ORAL TAB 10-28 14:20: 59 Yes once daily [facility] OMEPRAZOLE 20 MG ORAL TBEC 10-28 14:20: 59 Yes once daily [facility] ASPIRIN 81 MG ORAL CHEW 10-28 14:20: 59 Yes once daily [facility] LEVOTHYROXI NE 125 MCG ORAL TAB 10-28 14:20: 59 Yes once daily [facility] SYMBICORT 160-4.5 MCG/ACTUATI ON INHALE HFAA 10-28 14:20: 59 Yes 2 puffs BID prn [facility] VYTORIN 10-20 10-20 MG ORAL TAB 10-28 14:20: 59 Yes once daily at bedtime [facility] PREMARIN 1.25 MG ORAL TAB 10-28 14:20: 59 Yes once daily [facility] OMEPRAZOLE 20 MG ORAL TBEC 10-28 14:20: 59 Yes once daily [facility] ASPIRIN 81 MG ORAL CHEW 10-28 14:20: 59 Yes once daily [facility] LEVOTHYROXI NE 125 MCG ORAL TAB 10-28 14:20: 59 Yes once daily [facility] SYMBICORT 160-4.5 MCG/ACTUATI ON INHALE HFAA 10-28 14:20: 59 Yes 2 puffs BID prn [facility] VYTORIN 10-20 10-20 MG ORAL TAB 10-28 14:20: 59 Yes once daily at bedtime [facility] PREMARIN 1.25 MG ORAL TAB 10-28 14:20: 59 Yes once daily [facility] OMEPRAZOLE 20 MG ORAL TBEC 10-28 14:20: 59 Yes once daily [facility] ASPIRIN 81 MG ORAL CHEW 10-28 14:20: 59 Yes once daily [facility] LEVOTHYROXI NE 125 MCG ORAL TAB 10-28 14:20: 59 Yes once daily [facility] SYMBICORT 160-4.5 MCG/ACTUATI ON INHALE HFAA 10-28 14:20: 59 Yes 2 puffs BID prn [facility] VYTORIN 10-20 10-20 MG ORAL TAB 10-28 14:20: 59 Yes once daily at bedtime [facility] PREMARIN 1.25 MG ORAL TAB 10-28 14:20: 59 Yes once daily [facility] OMEPRAZOLE 20 MG ORAL TBEC 10-28 14:20: 59 Yes once daily [facility] ASPIRIN 81 MG ORAL CHEW 10-28 14:20: 59 Yes once daily [facility] LEVOTHYROXI NE 125 MCG ORAL TAB 10-28 14:20: 59 Yes once daily [facility] SYMBICORT 160-4.5 MCG/ACTUATI ON INHALE HFAA 10-28 14:20: 59 Yes 2 puffs BID prn [facility] VYTORIN 10-20 10-20 MG ORAL TAB 10-28 14:20: 59 Yes once daily at bedtime [facility] PREMARIN 1.25 MG ORAL TAB 10-28 14:20: 59 Yes once daily [facility] OMEPRAZOLE 20 MG ORAL TBEC 10-28 14:20: 59 Yes once daily [facility] ASPIRIN 81 MG ORAL CHEW 10-28 14:20: 59 Yes once daily [facility] LEVOTHYROXI NE 125 MCG ORAL TAB 10-28 14:20: 59 Yes once daily [facility] SYMBICORT 160-4.5 MCG/ACTUATI ON INHALE HFAA 10-28 14:20: 59 Yes 2 puffs BID prn [facility] VYTORIN 10-20 10-20 MG ORAL TAB 10-28 14:20: 59 Yes once daily at bedtime [facility] PREMARIN 1.25 MG ORAL TAB 10-28 14:20: 59 Yes once daily [facility] OMEPRAZOLE 20 MG ORAL TBEC 10-28 14:20: 59 Yes once daily [facility] ASPIRIN 81 MG ORAL CHEW 10-28 14:20: 59 Yes once daily [facility] LEVOTHYROXI NE 125 MCG ORAL TAB 10-28 14:20: 59 Yes once daily [facility] SYMBICORT 160-4.5 MCG/ACTUATI ON INHALE HFAA 10-28 14:20: 59 Yes 2 puffs BID prn [facility] VYTORIN 10-20 10-20 MG ORAL TAB 10-28 14:20: 59 Yes once daily at bedtime [facility] PREMARIN 1.25 MG ORAL TAB 10-28 14:20: 59 Yes once daily [facility] OMEPRAZOLE 20 MG ORAL TBEC 10-28 14:20: 59 Yes once daily [facility] ASPIRIN 81 MG ORAL CHEW 10-28 14:20: 59 Yes once daily [facility] LEVOTHYROXI NE 125 MCG ORAL TAB 10-28 14:20: 59 Yes once daily [facility] SYMBICORT 160-4.5 MCG/ACTUATI ON INHALE HFAA 10-28 14:20: 59 Yes 2 puffs BID prn [facility] VYTORIN 10-20 10-20 MG ORAL TAB 10-28 14:20: 59 Yes once daily at bedtime [facility] PREMARIN 1.25 MG ORAL TAB 10-28 14:20: 59 Yes once daily [facility] OMEPRAZOLE 20 MG ORAL TBEC 10-28 14:20: 59 Yes once daily [facility] ASPIRIN 81 MG ORAL CHEW 10-28 14:20: 59 Yes once daily [facility] LEVOTHYROXI NE 125 MCG ORAL TAB 10-28 14:20: 59 Yes once daily [facility] SYMBICORT 160-4.5 MCG/ACTUATI ON INHALE HFAA 10-28 14:20: 59 Yes 2 puffs BID prn [facility] VYTORIN 10-20 10-20 MG ORAL TAB 10-28 14:20: 59 Yes once daily at bedtime [facility] PREMARIN 1.25 MG ORAL TAB 10-28 14:20: 59 Yes once daily [facility] OMEPRAZOLE 20 MG ORAL TBEC 10-28 14:20: 59 Yes once daily [facility] ASPIRIN 81 MG ORAL CHEW 10-28 14:20: 59 Yes once daily [facility] LEVOTHYROXI NE 125 MCG ORAL TAB 10-28 14:20: 59 Yes once daily [facility] SYMBICORT 160-4.5 MCG/ACTUATI ON INHALE HFAA 10-28 14:20: 59 Yes 2 puffs BID prn [facility] VYTORIN 10-20 10-20 MG ORAL TAB 10-28 14:20: 59 Yes once daily at bedtime [facility] PREMARIN 1.25 MG ORAL TAB 10-28 14:20: 59 Yes once daily [facility] OMEPRAZOLE 20 MG ORAL TBEC 10-28 14:20: 59 Yes once daily [facility] ASPIRIN 81 MG ORAL CHEW 10-28 14:20: 59 Yes once daily [facility] LEVOTHYROXI NE 125 MCG ORAL TAB 10-28 14:20: 59 Yes once daily [facility] SYMBICORT 160-4.5 MCG/ACTUATI ON INHALE HFAA 10-28 14:20: 59 Yes 2 puffs BID prn [facility] VYTORIN 10-20 10-20 MG ORAL TAB 10-28 14:20: 59 Yes once daily at bedtime [facility] PREMARIN 1.25 MG ORAL TAB 10-28 14:20: 59 Yes once daily [facility] OMEPRAZOLE 20 MG ORAL TBEC 10-28 14:20: 59 Yes once daily [facility] ASPIRIN 81 MG ORAL CHEW 10-28 14:20: 59 Yes once daily [facility] LEVOTHYROXI NE 125 MCG ORAL TAB 10-28 14:20: 59 Yes once daily [facility] Accu-Chek Danyell Plus Accu-Chek Danyell Plus Yes Na Galvan USE DIRECTED TO CHECK BLOOD GLUCOSE TWICE DAILY [facility] Accu-Chek Softclix Lancets Accu-Chek Softclix Lancets Yes Na Galvan USE DIRECTED TO CHECK BLOOD GLUCOSE TWICE DAILY [facility] Atorvastati n Calcium 40 MG Atorvastati n Calcium 40 MG No Atorvastat in Calcium 40 MG VESIcare 5 MG VESIcare 5 MG No 1{table t} QD VESIcare 5 MG Losartan Potassium 100 MG Losartan Potassium 100 MG No Losartan Potassium 100 MG Levothyroxi ne Sodium 50 MCG Levothyroxi ne Sodium 50 MCG No QD Levothyrox ine Sodium 50 MCG Bisoprolol- hydroCHLORO thiazide 10-6.25 MG Bisoprolol- hydroCHLORO thiazide 10-6.25 MG No 1{table t} QD Bisoprolol -hydroCHLO ROthiazide 10-6.25 MG Accu-Chek Danyell Plus - Accu-Chek Danyell Plus - No Accu-Chek Danyell Plus - Latanoprost 0.005 % Latanoprost 0.005 % No 1{drop_ into_af fected_ eye_in_ the_eve aleksandar} QD Latanopros t 0.005 % glipiZIDE 10 MG glipiZIDE 10 MG No glipiZIDE 10 MG Accu-Chek Softclix Lancets - Accu-Chek Softclix Lancets - No Accu-Chek Softclix Lancets - Omeprazole 20 MG Omeprazole 20 MG No Omeprazole 20 MG Hydrocortis one 5 MG Hydrocortis one 5 MG No BID Hydrocorti sone 5 MG glipiZIDE 10 MG glipiZIDE 10 MG No 1{table t} BID glipiZIDE 10 MG Solifenacin Succinate 5 MG Solifenacin Succinate 5 MG No Solifenaci n Succinate 5 MG Gabapentin 100 MG Gabapentin 100 MG No Gabapentin 100 MG PriLOSEC 20 MG PriLOSEC 20 MG No 1{capsu le} QD PriLOSEC 20 MG Accu-Chek Danyell Plus - Accu-Chek Danyell Plus - No Accu-Chek Danyell Plus - amLODIPine Besylate 5 MG amLODIPine Besylate 5 MG No amLODIPine Besylate 5 MG Albuterol Sulfate 108 (90 Base) MCG/ACT Albuterol Sulfate 108 (90 Base) MCG/ACT No 2{puffs _as_nee ded} QID Albuterol Sulfate 108 (90 Base) MCG/ACT busPIRone HCl 5 MG busPIRone HCl 5 MG No 1{table t} busPIRone HCl 5 MG Losartan Potassium 100 MG Losartan Potassium 100 MG No Losartan Potassium 100 MG Atorvastati n Calcium 40 MG Atorvastati n Calcium 40 MG No Atorvastat in Calcium 40 MG VESIcare 5 MG VESIcare 5 MG No 1{table t} QD VESIcare 5 MG Aspir-81 81 MG Aspir-81 81 MG No 1{table t} QD Aspir-81 81 MG Losartan Potassium 100 MG Losartan Potassium 100 MG No Losartan Potassium 100 MG Levothyroxi ne Sodium 50 MCG Levothyroxi ne Sodium 50 MCG No QD Levothyrox ine Sodium 50 MCG Bisoprolol- hydroCHLORO thiazide 10-6.25 MG Bisoprolol- hydroCHLORO thiazide 10-6.25 MG No 1{table t} QD Bisoprolol -hydroCHLO ROthiazide 10-6.25 MG Accu-Chek Danyell Plus - Accu-Chek Danyell Plus - No Accu-Chek Danyell Plus - Latanoprost 0.005 % Latanoprost 0.005 % No 1{drop_ into_af fected_ eye_in_ the_eve aleksandar} QD Latanopros t 0.005 % glipiZIDE 10 MG glipiZIDE 10 MG No glipiZIDE 10 MG Accu-Chek Softclix Lancets - Accu-Chek Softclix Lancets - No Accu-Chek Softclix Lancets - Omeprazole 20 MG Omeprazole 20 MG No Omeprazole 20 MG Hydrocortis one 5 MG Hydrocortis one 5 MG No BID Hydrocorti sone 5 MG glipiZIDE 10 MG glipiZIDE 10 MG No 1{table t} BID glipiZIDE 10 MG Levothyroxi ne Sodium 88 MCG Levothyroxi ne Sodium 88 MCG No Levothyrox ine Sodium 88 MCG Solifenacin Succinate 5 MG Solifenacin Succinate 5 MG No Solifenaci n Succinate 5 MG Gabapentin 100 MG Gabapentin 100 MG No Gabapentin 100 MG PriLOSEC 20 MG PriLOSEC 20 MG No 1{capsu le} QD PriLOSEC 20 MG Accu-Chek Danyell Plus - Accu-Chek Danyell Plus - No Accu-Chek Danyell Plus - amLODIPine Besylate 5 MG amLODIPine Besylate 5 MG No amLODIPine Besylate 5 MG Albuterol Sulfate 108 (90 Base) MCG/ACT Albuterol Sulfate 108 (90 Base) MCG/ACT No 2{puffs _as_nee ded} QID Albuterol Sulfate 108 (90 Base) MCG/ACT Accu-Chek Softclix Lancets - Accu-Chek Softclix Lancets - No Accu-Chek Softclix Lancets - Flonase 50 MCG/ACT Flonase 50 MCG/ACT No 2{spray _in_eac h_nostr il} QD Flonase 50 MCG/ACT Latanoprost 0.005 % Latanoprost 0.005 % No 1{drop_ into_af fected_ eye_in_ the_eve aleksandar} QD Latanopros t 0.005 % amLODIPine Besylate 5 MG amLODIPine Besylate 5 MG No amLODIPine Besylate 5 MG VESIcare 5 MG VESIcare 5 MG No 1{table t} QD VESIcare 5 MG PriLOSEC 20 MG PriLOSEC 20 MG No 1{capsu le} QD PriLOSEC 20 MG amLODIPine Besylate 5 MG amLODIPine Besylate 5 MG No 1{table t} QD amLODIPine Besylate 5 MG Losartan Potassium 100 MG Losartan Potassium 100 MG No Losartan Potassium 100 MG Omeprazole 20 MG Omeprazole 20 MG No Omeprazole 20 MG Atorvastati n Calcium 40 MG Atorvastati n Calcium 40 MG No Atorvastat in Calcium 40 MG Levothyroxi ne Sodium 50 MCG Levothyroxi ne Sodium 50 MCG No QD Levothyrox ine Sodium 50 MCG Accu-Chek Softclix Lancets - Accu-Chek Softclix Lancets - No Accu-Chek Softclix Lancets - Latanoprost 0.005 % Latanoprost 0.005 % No 1{drop_ into_af fected_ eye_in_ the_eve aleksandar} QD Latanopros t 0.005 % Bisoprolol- hydroCHLORO thiazide 10-6.25 MG Bisoprolol- hydroCHLORO thiazide 10-6.25 MG No Bisoprolol -hydroCHLO ROthiazide 10-6.25 MG Gabapentin 100 MG Gabapentin 100 MG No Gabapentin 100 MG Solifenacin Succinate 5 MG Solifenacin Succinate 5 MG No Solifenaci n Succinate 5 MG glipiZIDE 10 MG glipiZIDE 10 MG No glipiZIDE 10 MG Magnesium Oxide 400 MG Magnesium Oxide 400 MG No 1{table t_as_ne eded} QD Magnesium Oxide 400 MG Hydrocortis one 5 MG Hydrocortis one 5 MG No BID Hydrocorti sone 5 MG Albuterol Sulfate 108 (90 Base) MCG/ACT Albuterol Sulfate 108 (90 Base) MCG/ACT No 2{puffs _as_nee ded} QID Albuterol Sulfate 108 (90 Base) MCG/ACT Accu-Chek Danyell Plus - Accu-Chek Danyell Plus - No Accu-Chek Danyell Plus - Accu-Chek Danyell Plus - Accu-Chek Danyell Plus - No Accu-Chek Danyell Plus - Singulair 10 MG Singulair 10 MG No 1{table t_in_th e_eveni ng} QD Singulair 10 MG Lipitor 40 MG Lipitor 40 MG No 1{table t} QD Lipitor 40 MG amLODIPine Besylate 5 MG amLODIPine Besylate 5 MG No amLODIPine Besylate 5 MG VESIcare 5 MG VESIcare 5 MG No 1{table t} QD VESIcare 5 MG PriLOSEC 20 MG PriLOSEC 20 MG No 1{capsu le} QD PriLOSEC 20 MG Losartan Potassium 100 MG Losartan Potassium 100 MG No Losartan Potassium 100 MG Omeprazole 20 MG Omeprazole 20 MG No Omeprazole 20 MG Atorvastati n Calcium 40 MG Atorvastati n Calcium 40 MG No Atorvastat in Calcium 40 MG Levothyroxi ne Sodium 50 MCG Levothyroxi ne Sodium 50 MCG No QD Levothyrox ine Sodium 50 MCG Accu-Chek Softclix Lancets - Accu-Chek Softclix Lancets - No Accu-Chek Softclix Lancets - Latanoprost 0.005 % Latanoprost 0.005 % No 1{drop_ into_af fected_ eye_in_ the_eve aleksandar} QD Latanopros t 0.005 % Bisoprolol- hydroCHLORO thiazide 10-6.25 MG Bisoprolol- hydroCHLORO thiazide 10-6.25 MG No Bisoprolol -hydroCHLO ROthiazide 10-6.25 MG Gabapentin 100 MG Gabapentin 100 MG No Gabapentin 100 MG Solifenacin Succinate 5 MG Solifenacin Succinate 5 MG No Solifenaci n Succinate 5 MG glipiZIDE 10 MG glipiZIDE 10 MG No glipiZIDE 10 MG Hydrocortis one 5 MG Hydrocortis one 5 MG No BID Hydrocorti sone 5 MG Albuterol Sulfate 108 (90 Base) MCG/ACT Albuterol Sulfate 108 (90 Base) MCG/ACT No 2{puffs _as_nee ded} QID Albuterol Sulfate 108 (90 Base) MCG/ACT Accu-Chek Danyell Plus - Accu-Chek Danyell Plus - No Accu-Chek Danyell Plus - Accu-Chek Danyell Plus - Accu-Chek Danyell Plus - No Accu-Chek Danyell Plus - glipiZIDE 10 MG glipiZIDE 10 MG No 1{table t} QD glipiZIDE 10 MG Atorvastati n Calcium 40 MG Atorvastati n Calcium 40 MG No Atorvastat in Calcium 40 MG Myrbetriq 25 MG Myrbetriq 25 MG No 1{table t} QD Myrbetriq 25 MG Accu-Chek Danyell Plus - Accu-Chek Danyell Plus - No Accu-Chek Danyell Plus - Hydrocortis one 5 MG Hydrocortis one 5 MG No BID Hydrocorti sone 5 MG Accu-Chek Danyell Plus - Accu-Chek Danyell Plus - No Accu-Chek Danyell Plus - Atorvastati n Calcium 40 MG Atorvastati n Calcium 40 MG No Atorvastat in Calcium 40 MG Gabapentin 100 MG Gabapentin 100 MG No Gabapentin 100 MG VESIcare 5 MG VESIcare 5 MG No 1{table t} QD VESIcare 5 MG glipiZIDE 10 MG glipiZIDE 10 MG No glipiZIDE 10 MG Solifenacin Succinate 5 MG Solifenacin Succinate 5 MG No Solifenaci n Succinate 5 MG Accu-Chek Danyell Plus - Accu-Chek Danyell Plus - No BID Accu-Chek Danyell Plus - Bisoprolol- hydroCHLORO thiazide 10-6.25 MG Bisoprolol- hydroCHLORO thiazide 10-6.25 MG No Bisoprolol -hydroCHLO ROthiazide 10-6.25 MG Accu-Chek Danyell Plus - Accu-Chek Danyell Plus - No Accu-Chek Danyell Plus - glipiZIDE 10 MG glipiZIDE 10 MG No 1{table t} BID glipiZIDE 10 MG PriLOSEC 20 MG PriLOSEC 20 MG No 1{capsu le} QD PriLOSEC 20 MG Jardiance 25 MG Jardiance 25 MG No 1{table t} QD Jardiance 25 MG Omeprazole 20 MG Omeprazole 20 MG No Omeprazole 20 MG Levothyroxi ne Sodium 88 MCG Levothyroxi ne Sodium 88 MCG No QD Levothyrox ine Sodium 88 MCG Latanoprost 0.005 % Latanoprost 0.005 % No 1{drop_ into_af fected_ eye_in_ the_eve aleksandar} QD Latanopros t 0.005 % Albuterol Sulfate 108 (90 Base) MCG/ACT Albuterol Sulfate 108 (90 Base) MCG/ACT No 2{puffs _as_nee ded} QID Albuterol Sulfate 108 (90 Base) MCG/ACT Accu-Chek Softclix Lancets - Accu-Chek Softclix Lancets - No Accu-Chek Softclix Lancets - Estradiol 0.5 MG Estradiol 0.5 MG No Estradiol 0.5 MG Losartan Potassium 100 MG Losartan Potassium 100 MG No Losartan Potassium 100 MG Losartan Potassium 100 MG Losartan Potassium 100 MG No 1{table t} QD Losartan Potassium 100 MG Lipitor 40 MG Lipitor 40 MG No 1{table t} QD Lipitor 40 MG amLODIPine Besylate 5 MG amLODIPine Besylate 5 MG No amLODIPine Besylate 5 MG Jardiance 10 MG Jardiance 10 MG No 1{table t} QD Jardiance 10 MG amLODIPine Besylate 5 MG amLODIPine Besylate 5 MG No 1{table t} QD amLODIPine Besylate 5 MG Bisoprolol- hydroCHLORO thiazide 10-6.25 MG Bisoprolol- hydroCHLORO thiazide 10-6.25 MG No 1{table t} QD Bisoprolol -hydroCHLO ROthiazide 10-6.25 MG Neurontin 100 MG Neurontin 100 MG No 2{capsu le} Neurontin 100 MG Albuterol Sulfate 108 (90 Base) MCG/ACT Albuterol Sulfate 108 (90 Base) MCG/ACT No 2{puffs _as_nee ded} QID Albuterol Sulfate 108 (90 Base) MCG/ACT Neurontin 100 MG Neurontin 100 MG No 1{capsu le} TID Neurontin 100 MG Levothyroxi ne Sodium 88 MCG Levothyroxi ne Sodium 88 MCG No QD Levothyrox ine Sodium 88 MCG Cozaar 100 MG Cozaar 100 MG No 1{table t} QD Cozaar 100 MG PriLOSEC 20 MG PriLOSEC 20 MG No 1{capsu le} QD PriLOSEC 20 MG amLODIPine Besylate 5 MG amLODIPine Besylate 5 MG No 1{table t} QD amLODIPine Besylate 5 MG Bisoprolol- hydroCHLORO thiazide 10-6.25 MG Bisoprolol- hydroCHLORO thiazide 10-6.25 MG No 1{table t} QD Bisoprolol -hydroCHLO ROthiazide 10-6.25 MG glipiZIDE 10 MG glipiZIDE 10 MG No 1{table t} QD glipiZIDE 10 MG Accu-Chek Softclix Lancets - Accu-Chek Softclix Lancets - No Accu-Chek Softclix Lancets - Lipitor 40 MG Lipitor 40 MG No 1{table t} QD Lipitor 40 MG VESIcare 10 MG VESIcare 10 MG No 1{table t} QD VESIcare 10 MG Levothyroxi ne Sodium 88 MCG Levothyroxi ne Sodium 88 MCG No QD Levothyrox ine Sodium 88 MCG Losartan Potassium 100 MG Losartan Potassium 100 MG No Losartan Potassium 100 MG PriLOSEC 20 MG PriLOSEC 20 MG No 1{capsu le} QD PriLOSEC 20 MG amLODIPine Besylate 5 MG amLODIPine Besylate 5 MG No 1{table t} QD amLODIPine Besylate 5 MG Cozaar 100 MG Cozaar 100 MG No 1{table t} QD Cozaar 100 MG Aspir-81 81 MG Aspir-81 81 MG No 1{table t} QD Aspir-81 81 MG Atorvastati n Calcium 40 MG Atorvastati n Calcium 40 MG No Atorvastat in Calcium 40 MG Albuterol Sulfate 108 (90 Base) MCG/ACT Albuterol Sulfate 108 (90 Base) MCG/ACT No 2{puffs _as_nee ded} QID Albuterol Sulfate 108 (90 Base) MCG/ACT Neurontin 100 MG Neurontin 100 MG No 1{capsu le} TID Neurontin 100 MG glipiZIDE 10 MG glipiZIDE 10 MG No glipiZIDE 10 MG Levothyroxi ne Sodium 88 MCG Levothyroxi ne Sodium 88 MCG No Levothyrox ine Sodium 88 MCG Cozaar 100 MG Cozaar 100 MG No 1{table t} QD Cozaar 100 MG Euthyrox 88 MCG Euthyrox 88 MCG No Euthyrox 88 MCG Lipitor 40 MG Lipitor 40 MG No 1{table t} QD Lipitor 40 MG Estradiol 0.5 MG Estradiol 0.5 MG No Estradiol 0.5 MG Bisoprolol- hydroCHLORO thiazide 10-6.25 MG Bisoprolol- hydroCHLORO thiazide 10-6.25 MG No 1{table t} QD Bisoprolol -hydroCHLO ROthiazide 10-6.25 MG Accu-Chek Danyell Plus - Accu-Chek Danyell Plus - No Accu-Chek Danyell Plus - Bisoprolol- hydroCHLORO thiazide 10-6.25 MG Bisoprolol- hydroCHLORO thiazide 10-6.25 MG No Bisoprolol -hydroCHLO ROthiazide 10-6.25 MG Singulair 10 MG Singulair 10 MG No 1{table t_in_th e_eveni ng} QD Singulair 10 MG amLODIPine Besylate 5 MG amLODIPine Besylate 5 MG No 1{table t} QD amLODIPine Besylate 5 MG Flonase 50 MCG/ACT Flonase 50 MCG/ACT No 2{spray _in_eac h_nostr il} QD Flonase 50 MCG/ACT Magnesium Oxide 400 MG Magnesium Oxide 400 MG No 1{table t_as_ne eded} QD Magnesium Oxide 400 MG glipiZIDE 10 MG glipiZIDE 10 MG No 1{table t} QD glipiZIDE 10 MG Accu-Chek Softclix Lancets - Accu-Chek Softclix Lancets - No Accu-Chek Softclix Lancets - Lipitor 40 MG Lipitor 40 MG No 1{table t} QD Lipitor 40 MG VESIcare 10 MG VESIcare 10 MG No 1{table t} QD VESIcare 10 MG Levothyroxi ne Sodium 88 MCG Levothyroxi ne Sodium 88 MCG No QD Levothyrox ine Sodium 88 MCG Losartan Potassium 100 MG Losartan Potassium 100 MG No Losartan Potassium 100 MG PriLOSEC 20 MG PriLOSEC 20 MG No 1{capsu le} QD PriLOSEC 20 MG amLODIPine Besylate 5 MG amLODIPine Besylate 5 MG No 1{table t} QD amLODIPine Besylate 5 MG Cozaar 100 MG Cozaar 100 MG No 1{table t} QD Cozaar 100 MG Aspir-81 81 MG Aspir-81 81 MG No 1{table t} QD Aspir-81 81 MG Atorvastati n Calcium 40 MG Atorvastati n Calcium 40 MG No Atorvastat in Calcium 40 MG Albuterol Sulfate 108 (90 Base) MCG/ACT Albuterol Sulfate 108 (90 Base) MCG/ACT No 2{puffs _as_nee ded} QID Albuterol Sulfate 108 (90 Base) MCG/ACT Neurontin 100 MG Neurontin 100 MG No 1{capsu le} TID Neurontin 100 MG glipiZIDE 10 MG glipiZIDE 10 MG No glipiZIDE 10 MG Levothyroxi ne Sodium 88 MCG Levothyroxi ne Sodium 88 MCG No Levothyrox ine Sodium 88 MCG Cozaar 100 MG Cozaar 100 MG No 1{table t} QD Cozaar 100 MG Euthyrox 88 MCG Euthyrox 88 MCG No Euthyrox 88 MCG Lipitor 40 MG Lipitor 40 MG No 1{table t} QD Lipitor 40 MG Estradiol 0.5 MG Estradiol 0.5 MG No Estradiol 0.5 MG Bisoprolol- hydroCHLORO thiazide 10-6.25 MG Bisoprolol- hydroCHLORO thiazide 10-6.25 MG No 1{table t} QD Bisoprolol -hydroCHLO ROthiazide 10-6.25 MG Accu-Chek Danyell Plus - Accu-Chek Danyell Plus - No Accu-Chek Danyell Plus - Bisoprolol- hydroCHLORO thiazide 10-6.25 MG Bisoprolol- hydroCHLORO thiazide 10-6.25 MG No Bisoprolol -hydroCHLO ROthiazide 10-6.25 MG Singulair 10 MG Singulair 10 MG No 1{table t_in e_eveni ng} QD Singulair 10 MG amLODIPine Besylate 5 MG amLODIPine Besylate 5 MG No 1{table t} QD amLODIPine Besylate 5 MG Flonase 50 MCG/ACT Flonase 50 MCG/ACT No 2{spray _in_eac h_nostr il} QD Flonase 50 MCG/ACT Magnesium Oxide 400 MG Magnesium Oxide 400 MG No 1{table t_as_ne eded} QD Magnesium Oxide 400 MG Losartan Potassium 100 MG Losartan Potassium 100 MG No Losartan Potassium 100 MG Singulair 10 MG Singulair 10 MG No 1{table t_in e_eveni ng} QD Singulair 10 MG glipiZIDE 10 MG glipiZIDE 10 MG No glipiZIDE 10 MG Levothyroxi ne Sodium 88 MCG Levothyroxi ne Sodium 88 MCG No Levothyrox ine Sodium 88 MCG Accu-Chek Danyell Plus - Accu-Chek Danyell Plus - No Accu-Chek Danyell Plus - Lipitor 40 MG Lipitor 40 MG No 1{table t} QD Lipitor 40 MG Estradiol 0.5 MG Estradiol 0.5 MG No Estradiol 0.5 MG Magnesium Oxide 400 MG Magnesium Oxide 400 MG No 1{table t_as_ne eded} QD Magnesium Oxide 400 MG Levothyroxi ne Sodium 88 MCG Levothyroxi ne Sodium 88 MCG No QD Levothyrox ine Sodium 88 MCG Neurontin 100 MG Neurontin 100 MG No 1{capsu le} TID Neurontin 100 MG Flonase 50 MCG/ACT Flonase 50 MCG/ACT No 2{spray _in_eac h_nostr il} QD Flonase 50 MCG/ACT VESIcare 10 MG VESIcare 10 MG No 1{table t} QD VESIcare 10 MG Cozaar 100 MG Cozaar 100 MG No 1{table t} QD Cozaar 100 MG Bisoprolol- hydroCHLORO thiazide 10-6.25 MG Bisoprolol- hydroCHLORO thiazide 10-6.25 MG No Bisoprolol -hydroCHLO ROthiazide 10-6.25 MG Cozaar 100 MG Cozaar 100 MG No 1{table t} QD Cozaar 100 MG Accu-Chek Softclix Lancets - Accu-Chek Softclix Lancets - No Accu-Chek Softclix Lancets - PriLOSEC 20 MG PriLOSEC 20 MG No 1{capsu le} QD PriLOSEC 20 MG Bisoprolol- hydroCHLORO thiazide 10-6.25 MG Bisoprolol- hydroCHLORO thiazide 10-6.25 MG No 1{table t} QD Bisoprolol -hydroCHLO ROthiazide 10-6.25 MG Lipitor 40 MG Lipitor 40 MG No 1{table t} QD Lipitor 40 MG Albuterol Sulfate 108 (90 Base) MCG/ACT Albuterol Sulfate 108 (90 Base) MCG/ACT No 2{puffs _as_nee ded} QID Albuterol Sulfate 108 (90 Base) MCG/ACT Aspir-81 81 MG Aspir-81 81 MG No 1{table t} QD Aspir-81 81 MG glipiZIDE 10 MG glipiZIDE 10 MG No 1{table t} QD glipiZIDE 10 MG amLODIPine Besylate 5 MG amLODIPine Besylate 5 MG No 1{table t} QD amLODIPine Besylate 5 MG Euthyrox 88 MCG Euthyrox 88 MCG No Euthyrox 88 MCG amLODIPine Besylate 5 MG amLODIPine Besylate 5 MG No 1{table t} QD amLODIPine Besylate 5 MG Atorvastati n Calcium 40 MG Atorvastati n Calcium 40 MG No Atorvastat in Calcium 40 MG Estradiol 0.5 MG Estradiol 0.5 MG No Estradiol 0.5 MG Lipitor 40 MG Lipitor 40 MG No 1{table t} QD Lipitor 40 MG Losartan Potassium 100 MG Losartan Potassium 100 MG No Losartan Potassium 100 MG Magnesium Oxide 400 MG Magnesium Oxide 400 MG No 1{table t_as_ne eded} QD Magnesium Oxide 400 MG PriLOSEC 20 MG PriLOSEC 20 MG No 1{capsu le} QD PriLOSEC 20 MG Neurontin 100 MG Neurontin 100 MG No 1{capsu le} TID Neurontin 100 MG Levothyroxi ne Sodium 88 MCG Levothyroxi ne Sodium 88 MCG No QD Levothyrox ine Sodium 88 MCG Accu-Chek Danyell Plus - Accu-Chek Danyell Plus - No BID Accu-Chek Danyell Plus - Cozaar 100 MG Cozaar 100 MG No 1{table t} QD Cozaar 100 MG Flonase 50 MCG/ACT Flonase 50 MCG/ACT No 2{spray _in_eac h_nostr il} QD Flonase 50 MCG/ACT VESIcare 10 MG VESIcare 10 MG No 1{table t} QD VESIcare 10 MG Cozaar 100 MG Cozaar 100 MG No 1{table t} QD Cozaar 100 MG Albuterol Sulfate 108 (90 Base) MCG/ACT Albuterol Sulfate 108 (90 Base) MCG/ACT No 2{puffs _as_nee ded} QID Albuterol Sulfate 108 (90 Base) MCG/ACT Singulair 10 MG Singulair 10 MG No 1{table t_in_th e_eveni ng} QD Singulair 10 MG Accu-Chek Softclix Lancets - Accu-Chek Softclix Lancets - No Accu-Chek Softclix Lancets - Levothyroxi ne Sodium 88 MCG Levothyroxi ne Sodium 88 MCG No Levothyrox ine Sodium 88 MCG Bisoprolol- hydroCHLORO thiazide 10-6.25 MG Bisoprolol- hydroCHLORO thiazide 10-6.25 MG No Bisoprolol -hydroCHLO ROthiazide 10-6.25 MG Lipitor 40 MG Lipitor 40 MG No 1{table t} QD Lipitor 40 MG glipiZIDE 10 MG glipiZIDE 10 MG No glipiZIDE 10 MG Aspir-81 81 MG Aspir-81 81 MG No 1{table t} QD Aspir-81 81 MG glipiZIDE 10 MG glipiZIDE 10 MG No 1{table t} QD glipiZIDE 10 MG amLODIPine Besylate 5 MG amLODIPine Besylate 5 MG No 1{table t} QD amLODIPine Besylate 5 MG Euthyrox 88 MCG Euthyrox 88 MCG No Euthyrox 88 MCG amLODIPine Besylate 5 MG amLODIPine Besylate 5 MG No 1{table t} QD amLODIPine Besylate 5 MG Atorvastati n Calcium 40 MG Atorvastati n Calcium 40 MG No Atorvastat in Calcium 40 MG Accu-Chek Danyell Plus - Accu-Chek Danyell Plus - No Accu-Chek Danyell Plus - Estradiol 0.5 MG Estradiol 0.5 MG No Estradiol 0.5 MG Atorvastati n Calcium 40 MG Atorvastati n Calcium 40 MG No Atorvastat in Calcium 40 MG Bisoprolol- hydroCHLORO thiazide 10-6.25 MG Bisoprolol- hydroCHLORO thiazide 10-6.25 MG No Bisoprolol -hydroCHLO ROthiazide 10-6.25 MG busPIRone HCl 5 MG busPIRone HCl 5 MG No 1{table t} busPIRone HCl 5 MG amLODIPine Besylate 5 MG amLODIPine Besylate 5 MG No 1{table t} QD amLODIPine Besylate 5 MG Losartan Potassium 100 MG Losartan Potassium 100 MG No Losartan Potassium 100 MG Accu-Chek Danyell Plus - Accu-Chek Danyell Plus - No BID Accu-Chek Danyell Plus - amLODIPine Besylate 5 MG amLODIPine Besylate 5 MG No 1{table t} QD amLODIPine Besylate 5 MG Bisoprolol- hydroCHLORO thiazide 10-6.25 MG Bisoprolol- hydroCHLORO thiazide 10-6.25 MG No 1{table t} QD Bisoprolol -hydroCHLO ROthiazide 10-6.25 MG Euthyrox 88 MCG Euthyrox 88 MCG No Euthyrox 88 MCG Aspir-81 81 MG Aspir-81 81 MG No 1{table t} QD Aspir-81 81 MG Lipitor 40 MG Lipitor 40 MG No 1{table t} QD Lipitor 40 MG Singulair 10 MG Singulair 10 MG No 1{table t_in_th e_eveni ng} QD Singulair 10 MG Cozaar 100 MG Cozaar 100 MG No 1{table t} QD Cozaar 100 MG glipiZIDE 10 MG glipiZIDE 10 MG No glipiZIDE 10 MG Flonase 50 MCG/ACT Flonase 50 MCG/ACT No 2{spray _in_eac h_nostr il} QD Flonase 50 MCG/ACT Cozaar 100 MG Cozaar 100 MG No 1{table t} QD Cozaar 100 MG Neurontin 100 MG Neurontin 100 MG No 1{capsu le} TID Neurontin 100 MG Magnesium Oxide 400 MG Magnesium Oxide 400 MG No 1{table t_as_ne eded} QD Magnesium Oxide 400 MG glipiZIDE 10 MG glipiZIDE 10 MG No 1{table t} QD glipiZIDE 10 MG Accu-Chek Softclix Lancets - Accu-Chek Softclix Lancets - No Accu-Chek Softclix Lancets - Albuterol Sulfate 108 (90 Base) MCG/ACT Albuterol Sulfate 108 (90 Base) MCG/ACT No 2{puffs _as_nee ded} QID Albuterol Sulfate 108 (90 Base) MCG/ACT VESIcare 10 MG VESIcare 10 MG No 1{table t} QD VESIcare 10 MG PriLOSEC 20 MG PriLOSEC 20 MG No 1{capsu le} QD PriLOSEC 20 MG Levothyroxi ne Sodium 88 MCG Levothyroxi ne Sodium 88 MCG No QD Levothyrox ine Sodium 88 MCG Lipitor 40 MG Lipitor 40 MG No 1{table t} QD Lipitor 40 MG Flonase 50 MCG/ACT Flonase 50 MCG/ACT No 2{spray _in_eac h_nostr il} QD Flonase 50 MCG/ACT Neurontin 100 MG Neurontin 100 MG No 1{capsu le} TID Neurontin 100 MG Bisoprolol- hydroCHLORO thiazide 10-6.25 MG Bisoprolol- hydroCHLORO thiazide 10-6.25 MG No 1{table t} QD Bisoprolol -hydroCHLO ROthiazide 10-6.25 MG Estradiol 0.5 MG Estradiol 0.5 MG No Estradiol 0.5 MG Aspir-81 81 MG Aspir-81 81 MG No 1{table t} QD Aspir-81 81 MG Cozaar 100 MG Cozaar 100 MG No 1{table t} QD Cozaar 100 MG Albuterol Sulfate 108 (90 Base) MCG/ACT Albuterol Sulfate 108 (90 Base) MCG/ACT No 2{puffs _as_nee ded} QID Albuterol Sulfate 108 (90 Base) MCG/ACT amLODIPine Besylate 5 MG amLODIPine Besylate 5 MG No 1{table t} QD amLODIPine Besylate 5 MG busPIRone HCl 5 MG busPIRone HCl 5 MG No 1{table t} busPIRone HCl 5 MG Magnesium Oxide 400 MG Magnesium Oxide 400 MG No 1{table t_as_ne eded} QD Magnesium Oxide 400 MG glipiZIDE 10 MG glipiZIDE 10 MG No glipiZIDE 10 MG VESIcare 10 MG VESIcare 10 MG No 1{table t} QD VESIcare 10 MG Singulair 10 MG Singulair 10 MG No 1{table t_in_th e_eveni ng} QD Singulair 10 MG Cozaar 100 MG Cozaar 100 MG No 1{table t} QD Cozaar 100 MG Accu-Chek Danyell Plus - Accu-Chek Danyell Plus - No Accu-Chek Danyell Plus - Accu-Chek Danyell Plus - Accu-Chek Danyell Plus - No BID Accu-Chek Danyell Plus - Lipitor 40 MG Lipitor 40 MG No 1{table t} QD Lipitor 40 MG Accu-Chek Softclix Lancets - Accu-Chek Softclix Lancets - No Accu-Chek Softclix Lancets - glipiZIDE 10 MG glipiZIDE 10 MG No 1{table t} QD glipiZIDE 10 MG Atorvastati n Calcium 40 MG Atorvastati n Calcium 40 MG No Atorvastat in Calcium 40 MG amLODIPine Besylate 5 MG amLODIPine Besylate 5 MG No 1{table t} QD amLODIPine Besylate 5 MG Bisoprolol- hydroCHLORO thiazide 10-6.25 MG Bisoprolol- hydroCHLORO thiazide 10-6.25 MG No Bisoprolol -hydroCHLO ROthiazide 10-6.25 MG Lipitor 40 MG Lipitor 40 MG No 1{table t} QD Lipitor 40 MG Levothyroxi ne Sodium 88 MCG Levothyroxi ne Sodium 88 MCG No QD Levothyrox ine Sodium 88 MCG Losartan Potassium 100 MG Losartan Potassium 100 MG No Losartan Potassium 100 MG Euthyrox 88 MCG Euthyrox 88 MCG No Euthyrox 88 MCG PriLOSEC 20 MG PriLOSEC 20 MG No 1{capsu le} QD PriLOSEC 20 MG busPIRone HCl 5 MG busPIRone HCl 5 MG No 1{table t} busPIRone HCl 5 MG Losartan Potassium 100 MG Losartan Potassium 100 MG No Losartan Potassium 100 MG Aspir-81 81 MG Aspir-81 81 MG No 1{table t} QD Aspir-81 81 MG Levothyroxi ne Sodium 88 MCG Levothyroxi ne Sodium 88 MCG No Levothyrox ine Sodium 88 MCG Accu-Chek Softclix Lancets - Accu-Chek Softclix Lancets - No Accu-Chek Softclix Lancets - Flonase 50 MCG/ACT Flonase 50 MCG/ACT No 2{spray _in_eac h_nostr il} QD Flonase 50 MCG/ACT Latanoprost 0.005 % Latanoprost 0.005 % No 1{drop_ into_af fected_ eye_in_ the_eve aleksandar} QD Latanopros t 0.005 % amLODIPine Besylate 5 MG amLODIPine Besylate 5 MG No 1{table t} QD amLODIPine Besylate 5 MG Magnesium Oxide 400 MG Magnesium Oxide 400 MG No 1{table t_as_ne eded} QD Magnesium Oxide 400 MG Singulair 10 MG Singulair 10 MG No 1{table t_in_th e_eveni ng} QD Singulair 10 MG Lipitor 40 MG Lipitor 40 MG No 1{table t} QD Lipitor 40 MG glipiZIDE 10 MG glipiZIDE 10 MG No 1{table t} QD glipiZIDE 10 MG Atorvastati n Calcium 40 MG Atorvastati n Calcium 40 MG No Atorvastat in Calcium 40 MG Myrbetriq 25 MG Myrbetriq 25 MG No 1{table t} QD Myrbetriq 25 MG Accu-Chek Danyell Plus - Accu-Chek Danyell Plus - No Accu-Chek Danyell Plus - Accu-Chek Danyell Plus - Accu-Chek Danyell Plus - No BID Accu-Chek Danyell Plus - Estradiol 0.5 MG Estradiol 0.5 MG No Estradiol 0.5 MG Albuterol Sulfate 108 (90 Base) MCG/ACT Albuterol Sulfate 108 (90 Base) MCG/ACT No 2{puffs _as_nee ded} QID Albuterol Sulfate 108 (90 Base) MCG/ACT Neurontin 100 MG Neurontin 100 MG No 1{capsu le} TID Neurontin 100 MG Levothyroxi ne Sodium 88 MCG Levothyroxi ne Sodium 88 MCG No QD Levothyrox ine Sodium 88 MCG Cozaar 100 MG Cozaar 100 MG No 1{table t} QD Cozaar 100 MG PriLOSEC 20 MG PriLOSEC 20 MG No 1{capsu le} QD PriLOSEC 20 MG amLODIPine Besylate 5 MG amLODIPine Besylate 5 MG No 1{table t} QD amLODIPine Besylate 5 MG Bisoprolol- hydroCHLORO thiazide 10-6.25 MG Bisoprolol- hydroCHLORO thiazide 10-6.25 MG No 1{table t} QD Bisoprolol -hydroCHLO ROthiazide 10-6.25 MG busPIRone HCl 5 MG busPIRone HCl 5 MG No 1{table t} busPIRone HCl 5 MG Losartan Potassium 100 MG Losartan Potassium 100 MG No Losartan Potassium 100 MG Aspir-81 81 MG Aspir-81 81 MG No 1{table t} QD Aspir-81 81 MG Levothyroxi ne Sodium 88 MCG Levothyroxi ne Sodium 88 MCG No Levothyrox ine Sodium 88 MCG Accu-Chek Softclix Lancets - Accu-Chek Softclix Lancets - No Accu-Chek Softclix Lancets - Flonase 50 MCG/ACT Flonase 50 MCG/ACT No 2{spray _in_eac h_nostr il} QD Flonase 50 MCG/ACT Latanoprost 0.005 % Latanoprost 0.005 % No 1{drop_ into_af fected_ eye_in_ the_eve aleksandar} QD Latanopros t 0.005 % amLODIPine Besylate 5 MG amLODIPine Besylate 5 MG No 1{table t} QD amLODIPine Besylate 5 MG Magnesium Oxide 400 MG Magnesium Oxide 400 MG No 1{table t_as_ne eded} QD Magnesium Oxide 400 MG Singulair 10 MG Singulair 10 MG No 1{table t_in_th e_eveni ng} QD Singulair 10 MG Lipitor 40 MG Lipitor 40 MG No 1{table t} QD Lipitor 40 MG glipiZIDE 10 MG glipiZIDE 10 MG No 1{table t} QD glipiZIDE 10 MG Atorvastati n Calcium 40 MG Atorvastati n Calcium 40 MG No Atorvastat in Calcium 40 MG Myrbetriq 25 MG Myrbetriq 25 MG No 1{table t} QD Myrbetriq 25 MG Accu-Chek Danyell Plus - Accu-Chek Danyell Plus - No Accu-Chek Danyell Plus - Accu-Chek Danyell Plus - Accu-Chek Danyell Plus - No BID Accu-Chek Danyell Plus - Estradiol 0.5 MG Estradiol 0.5 MG No Estradiol 0.5 MG Albuterol Sulfate 108 (90 Base) MCG/ACT Albuterol Sulfate 108 (90 Base) MCG/ACT No 2{puffs _as_nee ded} QID Albuterol Sulfate 108 (90 Base) MCG/ACT Neurontin 100 MG Neurontin 100 MG No 1{capsu le} TID Neurontin 100 MG Levothyroxi ne Sodium 88 MCG Levothyroxi ne Sodium 88 MCG No QD Levothyrox ine Sodium 88 MCG Cozaar 100 MG Cozaar 100 MG No 1{table t} QD Cozaar 100 MG PriLOSEC 20 MG PriLOSEC 20 MG No 1{capsu le} QD PriLOSEC 20 MG amLODIPine Besylate 5 MG amLODIPine Besylate 5 MG No 1{table t} QD amLODIPine Besylate 5 MG Bisoprolol- hydroCHLORO thiazide 10-6.25 MG Bisoprolol- hydroCHLORO thiazide 10-6.25 MG No 1{table t} QD Bisoprolol -hydroCHLO ROthiazide 10-6.25 MG busPIRone HCl 5 MG busPIRone HCl 5 MG No 1{table t} busPIRone HCl 5 MG Losartan Potassium 100 MG Losartan Potassium 100 MG No Losartan Potassium 100 MG Aspir-81 81 MG Aspir-81 81 MG No 1{table t} QD Aspir-81 81 MG Levothyroxi ne Sodium 88 MCG Levothyroxi ne Sodium 88 MCG No Levothyrox ine Sodium 88 MCG Accu-Chek Softclix Lancets - Accu-Chek Softclix Lancets - No Accu-Chek Softclix Lancets - Flonase 50 MCG/ACT Flonase 50 MCG/ACT No 2{spray _in_eac h_nostr il} QD Flonase 50 MCG/ACT Latanoprost 0.005 % Latanoprost 0.005 % No 1{drop_ into_af fected_ eye_in_ the_eve aleksandar} QD Latanopros t 0.005 % amLODIPine Besylate 5 MG amLODIPine Besylate 5 MG No 1{table t} QD amLODIPine Besylate 5 MG Magnesium Oxide 400 MG Magnesium Oxide 400 MG No 1{table t_as_ne eded} QD Magnesium Oxide 400 MG Singulair 10 MG Singulair 10 MG No 1{table t_in_th e_eveni ng} QD Singulair 10 MG Lipitor 40 MG Lipitor 40 MG No 1{table t} QD Lipitor 40 MG glipiZIDE 10 MG glipiZIDE 10 MG No 1{table t} QD glipiZIDE 10 MG Atorvastati n Calcium 40 MG Atorvastati n Calcium 40 MG No Atorvastat in Calcium 40 MG Myrbetriq 25 MG Myrbetriq 25 MG No 1{table t} QD Myrbetriq 25 MG Accu-Chek Danyell Plus - Accu-Chek Danyell Plus - No Accu-Chek Danyell Plus - Accu-Chek Danyell Plus - Accu-Chek Danyell Plus - No BID Accu-Chek Danyell Plus - Estradiol 0.5 MG Estradiol 0.5 MG No Estradiol 0.5 MG Albuterol Sulfate 108 (90 Base) MCG/ACT Albuterol Sulfate 108 (90 Base) MCG/ACT No 2{puffs _as_nee ded} QID Albuterol Sulfate 108 (90 Base) MCG/ACT Neurontin 100 MG Neurontin 100 MG No 1{capsu le} TID Neurontin 100 MG Levothyroxi ne Sodium 88 MCG Levothyroxi ne Sodium 88 MCG No QD Levothyrox ine Sodium 88 MCG Cozaar 100 MG Cozaar 100 MG No 1{table t} QD Cozaar 100 MG PriLOSEC 20 MG PriLOSEC 20 MG No 1{capsu le} QD PriLOSEC 20 MG amLODIPine Besylate 5 MG amLODIPine Besylate 5 MG No 1{table t} QD amLODIPine Besylate 5 MG Bisoprolol- hydroCHLORO thiazide 10-6.25 MG Bisoprolol- hydroCHLORO thiazide 10-6.25 MG No 1{table t} QD Bisoprolol -hydroCHLO ROthiazide 10-6.25 MG busPIRone HCl 5 MG busPIRone HCl 5 MG No 1{table t} busPIRone HCl 5 MG Losartan Potassium 100 MG Losartan Potassium 100 MG No Losartan Potassium 100 MG Aspir-81 81 MG Aspir-81 81 MG No 1{table t} QD Aspir-81 81 MG Levothyroxi ne Sodium 88 MCG Levothyroxi ne Sodium 88 MCG No Levothyrox ine Sodium 88 MCG Accu-Chek Softclix Lancets - Accu-Chek Softclix Lancets - No Accu-Chek Softclix Lancets - Flonase 50 MCG/ACT Flonase 50 MCG/ACT No 2{spray _in_eac h_nostr il} QD Flonase 50 MCG/ACT Latanoprost 0.005 % Latanoprost 0.005 % No 1{drop_ into_af fected_ eye_in_ the_eve aleksandar} QD Latanopros t 0.005 % amLODIPine Besylate 5 MG amLODIPine Besylate 5 MG No 1{table t} QD amLODIPine Besylate 5 MG Magnesium Oxide 400 MG Magnesium Oxide 400 MG No 1{table t_as_ne eded} QD Magnesium Oxide 400 MG Singulair 10 MG Singulair 10 MG No 1{table t_in_th e_eveni ng} QD Singulair 10 MG Lipitor 40 MG Lipitor 40 MG No 1{table t} QD Lipitor 40 MG glipiZIDE 10 MG glipiZIDE 10 MG No 1{table t} QD glipiZIDE 10 MG Atorvastati n Calcium 40 MG Atorvastati n Calcium 40 MG No Atorvastat in Calcium 40 MG Myrbetriq 25 MG Myrbetriq 25 MG No 1{table t} QD Myrbetriq 25 MG Accu-Chek Danyell Plus - Accu-Chek Danyell Plus - No Accu-Chek Danyell Plus - Accu-Chek Danyell Plus - Accu-Chek Danyell Plus - No BID Accu-Chek Danyell Plus - Estradiol 0.5 MG Estradiol 0.5 MG No Estradiol 0.5 MG Albuterol Sulfate 108 (90 Base) MCG/ACT Albuterol Sulfate 108 (90 Base) MCG/ACT No 2{puffs _as_nee ded} QID Albuterol Sulfate 108 (90 Base) MCG/ACT Neurontin 100 MG Neurontin 100 MG No 1{capsu le} TID Neurontin 100 MG Levothyroxi ne Sodium 88 MCG Levothyroxi ne Sodium 88 MCG No QD Levothyrox ine Sodium 88 MCG Cozaar 100 MG Cozaar 100 MG No 1{table t} QD Cozaar 100 MG PriLOSEC 20 MG PriLOSEC 20 MG No 1{capsu le} QD PriLOSEC 20 MG amLODIPine Besylate 5 MG amLODIPine Besylate 5 MG No 1{table t} QD amLODIPine Besylate 5 MG Bisoprolol- hydroCHLORO thiazide 10-6.25 MG Bisoprolol- hydroCHLORO thiazide 10-6.25 MG No 1{table t} QD Bisoprolol -hydroCHLO ROthiazide 10-6.25 MG busPIRone HCl 5 MG busPIRone HCl 5 MG No 1{table t} busPIRone HCl 5 MG Losartan Potassium 100 MG Losartan Potassium 100 MG No Losartan Potassium 100 MG Aspir-81 81 MG Aspir-81 81 MG No 1{table t} QD Aspir-81 81 MG Levothyroxi ne Sodium 88 MCG Levothyroxi ne Sodium 88 MCG No Levothyrox ine Sodium 88 MCG Accu-Chek Softclix Lancets - Accu-Chek Softclix Lancets - No Accu-Chek Softclix Lancets - Flonase 50 MCG/ACT Flonase 50 MCG/ACT No 2{spray _in_eac h_nostr il} QD Flonase 50 MCG/ACT Latanoprost 0.005 % Latanoprost 0.005 % No 1{drop_ into_af fected_ eye_in_ the_eve aleksandar} QD Latanopros t 0.005 % amLODIPine Besylate 5 MG amLODIPine Besylate 5 MG No 1{table t} QD amLODIPine Besylate 5 MG Magnesium Oxide 400 MG Magnesium Oxide 400 MG No 1{table t_as_ne eded} QD Magnesium Oxide 400 MG Singulair 10 MG Singulair 10 MG No 1{table t_in_th e_eveni ng} QD Singulair 10 MG Lipitor 40 MG Lipitor 40 MG No 1{table t} QD Lipitor 40 MG glipiZIDE 10 MG glipiZIDE 10 MG No 1{table t} QD glipiZIDE 10 MG Atorvastati n Calcium 40 MG Atorvastati n Calcium 40 MG No Atorvastat in Calcium 40 MG Myrbetriq 25 MG Myrbetriq 25 MG No 1{table t} QD Myrbetriq 25 MG Accu-Chek Danyell Plus - Accu-Chek Danyell Plus - No Accu-Chek Danyell Plus - Accu-Chek Danyell Plus - Accu-Chek Danyell Plus - No BID Accu-Chek Danyell Plus - Estradiol 0.5 MG Estradiol 0.5 MG No Estradiol 0.5 MG Albuterol Sulfate 108 (90 Base) MCG/ACT Albuterol Sulfate 108 (90 Base) MCG/ACT No 2{puffs _as_nee ded} QID Albuterol Sulfate 108 (90 Base) MCG/ACT Neurontin 100 MG Neurontin 100 MG No 1{capsu le} TID Neurontin 100 MG Levothyroxi ne Sodium 88 MCG Levothyroxi ne Sodium 88 MCG No QD Levothyrox ine Sodium 88 MCG Cozaar 100 MG Cozaar 100 MG No 1{table t} QD Cozaar 100 MG PriLOSEC 20 MG PriLOSEC 20 MG No 1{capsu le} QD PriLOSEC 20 MG amLODIPine Besylate 5 MG amLODIPine Besylate 5 MG No 1{table t} QD amLODIPine Besylate 5 MG Bisoprolol- hydroCHLORO thiazide 10-6.25 MG Bisoprolol- hydroCHLORO thiazide 10-6.25 MG No 1{table t} QD Bisoprolol -hydroCHLO ROthiazide 10-6.25 MG busPIRone HCl 5 MG busPIRone HCl 5 MG No 1{table t} busPIRone HCl 5 MG Losartan Potassium 100 MG Losartan Potassium 100 MG No Losartan Potassium 100 MG Aspir-81 81 MG Aspir-81 81 MG No 1{table t} QD Aspir-81 81 MG Levothyroxi ne Sodium 88 MCG Levothyroxi ne Sodium 88 MCG No Levothyrox ine Sodium 88 MCG Accu-Chek Softclix Lancets - Accu-Chek Softclix Lancets - No Accu-Chek Softclix Lancets - Flonase 50 MCG/ACT Flonase 50 MCG/ACT No 2{spray _in_eac h_nostr il} QD Flonase 50 MCG/ACT Latanoprost 0.005 % Latanoprost 0.005 % No 1{drop_ into_af fected_ eye_in_ the_eve aleksandar} QD Latanopros t 0.005 % amLODIPine Besylate 5 MG amLODIPine Besylate 5 MG No 1{table t} QD amLODIPine Besylate 5 MG Magnesium Oxide 400 MG Magnesium Oxide 400 MG No 1{table t_as_ne eded} QD Magnesium Oxide 400 MG Singulair 10 MG Singulair 10 MG No 1{table t_in_th e_eveni ng} QD Singulair 10 MG Lipitor 40 MG Lipitor 40 MG No 1{table t} QD Lipitor 40 MG glipiZIDE 10 MG glipiZIDE 10 MG No 1{table t} QD glipiZIDE 10 MG Atorvastati n Calcium 40 MG Atorvastati n Calcium 40 MG No Atorvastat in Calcium 40 MG Myrbetriq 25 MG Myrbetriq 25 MG No 1{table t} QD Myrbetriq 25 MG Accu-Chek Danyell Plus - Accu-Chek Danyell Plus - No Accu-Chek Danyell Plus - Accu-Chek Danyell Plus - Accu-Chek Danyell Plus - No BID Accu-Chek Danyell Plus - Estradiol 0.5 MG Estradiol 0.5 MG No Estradiol 0.5 MG Albuterol Sulfate 108 (90 Base) MCG/ACT Albuterol Sulfate 108 (90 Base) MCG/ACT No 2{puffs _as_nee ded} QID Albuterol Sulfate 108 (90 Base) MCG/ACT Neurontin 100 MG Neurontin 100 MG No 1{capsu le} TID Neurontin 100 MG Levothyroxi ne Sodium 88 MCG Levothyroxi ne Sodium 88 MCG No QD Levothyrox ine Sodium 88 MCG Cozaar 100 MG Cozaar 100 MG No 1{table t} QD Cozaar 100 MG PriLOSEC 20 MG PriLOSEC 20 MG No 1{capsu le} QD PriLOSEC 20 MG amLODIPine Besylate 5 MG amLODIPine Besylate 5 MG No 1{table t} QD amLODIPine Besylate 5 MG Bisoprolol- hydroCHLORO thiazide 10-6.25 MG Bisoprolol- hydroCHLORO thiazide 10-6.25 MG No 1{table t} QD Bisoprolol -hydroCHLO ROthiazide 10-6.25 MG amLODIPine Besylate 5 MG amLODIPine Besylate 5 MG No 1{table t} QD amLODIPine Besylate 5 MG Neurontin 100 MG Neurontin 100 MG No 1{capsu le} TID Neurontin 100 MG Accu-Chek Danyell Plus - Accu-Chek Danyell Plus - No Accu-Chek Danyell Plus - Flonase 50 MCG/ACT Flonase 50 MCG/ACT No 2{spray _in_eac h_nostr il} QD Flonase 50 MCG/ACT PriLOSEC 20 MG PriLOSEC 20 MG No 1{capsu le} QD PriLOSEC 20 MG Bisoprolol- hydroCHLORO thiazide 10-6.25 MG Bisoprolol- hydroCHLORO thiazide 10-6.25 MG No 1{table t} QD Bisoprolol -hydroCHLO ROthiazide 10-6.25 MG Cozaar 100 MG Cozaar 100 MG No 1{table t} QD Cozaar 100 MG Aspir-81 81 MG Aspir-81 81 MG No 1{table t} QD Aspir-81 81 MG Levothyroxi ne Sodium 88 MCG Levothyroxi ne Sodium 88 MCG No QD Levothyrox ine Sodium 88 MCG Latanoprost 0.005 % Latanoprost 0.005 % No 1{drop_ into_af fected_ eye_in_ the_eve aleksandar} QD Latanopros t 0.005 % Losartan Potassium 100 MG Losartan Potassium 100 MG No Losartan Potassium 100 MG busPIRone HCl 5 MG busPIRone HCl 5 MG No 1{table t} busPIRone HCl 5 MG Magnesium Oxide 400 MG Magnesium Oxide 400 MG No 1{table t_as_ne eded} QD Magnesium Oxide 400 MG Singulair 10 MG Singulair 10 MG No 1{table t_in_th e_eveni ng} QD Singulair 10 MG Accu-Chek Danyell Plus - Accu-Chek Danyell Plus - No BID Accu-Chek Danyell Plus - Omeprazole 20 MG Omeprazole 20 MG No Omeprazole 20 MG Accu-Chek Softclix Lancets - Accu-Chek Softclix Lancets - No Accu-Chek Softclix Lancets - glipiZIDE 10 MG glipiZIDE 10 MG No 1{table t} QD glipiZIDE 10 MG Estradiol 0.5 MG Estradiol 0.5 MG No Estradiol 0.5 MG amLODIPine Besylate 5 MG amLODIPine Besylate 5 MG No amLODIPine Besylate 5 MG Atorvastati n Calcium 40 MG Atorvastati n Calcium 40 MG No Atorvastat in Calcium 40 MG Levothyroxi ne Sodium 88 MCG Levothyroxi ne Sodium 88 MCG No Levothyrox ine Sodium 88 MCG Albuterol Sulfate 108 (90 Base) MCG/ACT Albuterol Sulfate 108 (90 Base) MCG/ACT No 2{puffs _as_nee ded} QID Albuterol Sulfate 108 (90 Base) MCG/ACT Myrbetriq 25 MG Myrbetriq 25 MG No 1{table t} QD Myrbetriq 25 MG glipiZIDE 10 MG glipiZIDE 10 MG No glipiZIDE 10 MG Lipitor 40 MG Lipitor 40 MG No 1{table t} QD Lipitor 40 MG Accu-Chek Danyell Plus - Accu-Chek Danyell Plus - No Accu-Chek Danyell Plus - Flonase 50 MCG/ACT Flonase 50 MCG/ACT No 2{spray _in_eac h_nostr il} QD Flonase 50 MCG/ACT Atorvastati n Calcium 40 MG Atorvastati n Calcium 40 MG No Atorvastat in Calcium 40 MG Estradiol 0.5 MG Estradiol 0.5 MG No Estradiol 0.5 MG Cozaar 100 MG Cozaar 100 MG No 1{table t} QD Cozaar 100 MG Aspir-81 81 MG Aspir-81 81 MG No 1{table t} QD Aspir-81 81 MG amLODIPine Besylate 5 MG amLODIPine Besylate 5 MG No 1{table t} QD amLODIPine Besylate 5 MG Neurontin 100 MG Neurontin 100 MG No 1{capsu le} TID Neurontin 100 MG PriLOSEC 20 MG PriLOSEC 20 MG No 1{capsu le} QD PriLOSEC 20 MG Latanoprost 0.005 % Latanoprost 0.005 % No 1{drop_ into_af fected_ eye_in_ the_eve aleksandar} QD Latanopros t 0.005 % busPIRone HCl 5 MG busPIRone HCl 5 MG No 1{table t} busPIRone HCl 5 MG Levothyroxi ne Sodium 88 MCG Levothyroxi ne Sodium 88 MCG No Levothyrox ine Sodium 88 MCG Albuterol Sulfate 108 (90 Base) MCG/ACT Albuterol Sulfate 108 (90 Base) MCG/ACT No 2{puffs _as_nee ded} QID Albuterol Sulfate 108 (90 Base) MCG/ACT Accu-Chek Softclix Lancets - Accu-Chek Softclix Lancets - No Accu-Chek Softclix Lancets - glipiZIDE 10 MG glipiZIDE 10 MG No 1{table t} QD glipiZIDE 10 MG amLODIPine Besylate 5 MG amLODIPine Besylate 5 MG No amLODIPine Besylate 5 MG Losartan Potassium 100 MG Losartan Potassium 100 MG No Losartan Potassium 100 MG Levothyroxi ne Sodium 88 MCG Levothyroxi ne Sodium 88 MCG No QD Levothyrox ine Sodium 88 MCG Accu-Chek Danyell Plus - Accu-Chek Danyell Plus - No BID Accu-Chek Danyell Plus - Magnesium Oxide 400 MG Magnesium Oxide 400 MG No 1{table t_as_ne eded} QD Magnesium Oxide 400 MG Singulair 10 MG Singulair 10 MG No 1{table t_in_th e_eveni ng} QD Singulair 10 MG Omeprazole 20 MG Omeprazole 20 MG No Omeprazole 20 MG Myrbetriq 25 MG Myrbetriq 25 MG No 1{table t} QD Myrbetriq 25 MG Bisoprolol- hydroCHLORO thiazide 10-6.25 MG Bisoprolol- hydroCHLORO thiazide 10-6.25 MG No 1{table t} QD Bisoprolol -hydroCHLO ROthiazide 10-6.25 MG glipiZIDE 10 MG glipiZIDE 10 MG No glipiZIDE 10 MG Lipitor 40 MG Lipitor 40 MG No 1{table t} QD Lipitor 40 MG Accu-Chek Danyell Plus - Accu-Chek Danyell Plus - No Accu-Chek Danyell Plus - Flonase 50 MCG/ACT Flonase 50 MCG/ACT No 2{spray _in_eac h_nostr il} QD Flonase 50 MCG/ACT Atorvastati n Calcium 40 MG Atorvastati n Calcium 40 MG No Atorvastat in Calcium 40 MG Estradiol 0.5 MG Estradiol 0.5 MG No Estradiol 0.5 MG Cozaar 100 MG Cozaar 100 MG No 1{table t} QD Cozaar 100 MG Aspir-81 81 MG Aspir-81 81 MG No 1{table t} QD Aspir-81 81 MG amLODIPine Besylate 5 MG amLODIPine Besylate 5 MG No 1{table t} QD amLODIPine Besylate 5 MG Neurontin 100 MG Neurontin 100 MG No 1{capsu le} TID Neurontin 100 MG PriLOSEC 20 MG PriLOSEC 20 MG No 1{capsu le} QD PriLOSEC 20 MG Latanoprost 0.005 % Latanoprost 0.005 % No 1{drop_ into_af fected_ eye_in_ the_eve aleksandar} QD Latanopros t 0.005 % busPIRone HCl 5 MG busPIRone HCl 5 MG No 1{table t} busPIRone HCl 5 MG Levothyroxi ne Sodium 88 MCG Levothyroxi ne Sodium 88 MCG No Levothyrox ine Sodium 88 MCG Myrbetriq 25 MG Myrbetriq 25 MG No 1{table t} QD Myrbetriq 25 MG Accu-Chek Softclix Lancets - Accu-Chek Softclix Lancets - No Accu-Chek Softclix Lancets - glipiZIDE 10 MG glipiZIDE 10 MG No 1{table t} QD glipiZIDE 10 MG Magnesium Oxide 400 MG Magnesium Oxide 400 MG No 1{table t_as_ne eded} QD Magnesium Oxide 400 MG Losartan Potassium 100 MG Losartan Potassium 100 MG No Losartan Potassium 100 MG Levothyroxi ne Sodium 88 MCG Levothyroxi ne Sodium 88 MCG No QD Levothyrox ine Sodium 88 MCG Accu-Chek Danyell Plus - Accu-Chek Danyell Plus - No BID Accu-Chek Danyell Plus - Albuterol Sulfate 108 (90 Base) MCG/ACT Albuterol Sulfate 108 (90 Base) MCG/ACT No 2{puffs _as_nee ded} QID Albuterol Sulfate 108 (90 Base) MCG/ACT Singulair 10 MG Singulair 10 MG No 1{table t_in_th e_eveni ng} QD Singulair 10 MG amLODIPine Besylate 5 MG amLODIPine Besylate 5 MG No amLODIPine Besylate 5 MG Bisoprolol- hydroCHLORO thiazide 10-6.25 MG Bisoprolol- hydroCHLORO thiazide 10-6.25 MG No 1{table t} QD Bisoprolol -hydroCHLO ROthiazide 10-6.25 MG Omeprazole 20 MG Omeprazole 20 MG No QD Omeprazole 20 MG glipiZIDE 10 MG glipiZIDE 10 MG No glipiZIDE 10 MG Lipitor 40 MG Lipitor 40 MG No 1{table t} QD Lipitor 40 MG busPIRone HCl 5 MG busPIRone HCl 5 MG No 1{table t} busPIRone HCl 5 MG Atorvastati n Calcium 40 MG Atorvastati n Calcium 40 MG No 1{table t} QD Atorvastat in Calcium 40 MG Neurontin 100 MG Neurontin 100 MG No 2{capsu le} Neurontin 100 MG Omeprazole 20 MG Omeprazole 20 MG No QD Omeprazole 20 MG PriLOSEC 20 MG PriLOSEC 20 MG No 1{capsu le} QD PriLOSEC 20 MG Solifenacin Succinate 5 MG Solifenacin Succinate 5 MG No Solifenaci n Succinate 5 MG Cozaar 100 MG Cozaar 100 MG No 1{table t} QD Cozaar 100 MG Losartan Potassium 100 MG Losartan Potassium 100 MG No Losartan Potassium 100 MG VESIcare 5 MG VESIcare 5 MG No 1{table t} QD VESIcare 5 MG Accu-Chek Softclix Lancets - Accu-Chek Softclix Lancets - No Accu-Chek Softclix Lancets - Lipitor 40 MG Lipitor 40 MG No 1{table t} QD Lipitor 40 MG Losartan Potassium 100 MG Losartan Potassium 100 MG No 1{table t} QD Losartan Potassium 100 MG glipiZIDE 10 MG glipiZIDE 10 MG No 1{table t} BID glipiZIDE 10 MG amLODIPine Besylate 5 MG amLODIPine Besylate 5 MG No 1{table t} QD amLODIPine Besylate 5 MG Bisoprolol- hydroCHLORO thiazide 10-6.25 MG Bisoprolol- hydroCHLORO thiazide 10-6.25 MG No 1{table t} QD Bisoprolol -hydroCHLO ROthiazide 10-6.25 MG Hydrocortis one 5 MG Hydrocortis one 5 MG No BID Hydrocorti sone 5 MG Accu-Chek Danyell Plus - Accu-Chek Danyell Plus - No Accu-Chek Danyell Plus - Albuterol Sulfate 108 (90 Base) MCG/ACT Albuterol Sulfate 108 (90 Base) MCG/ACT No 2{puffs _as_nee ded} QID Albuterol Sulfate 108 (90 Base) MCG/ACT Aspir-81 81 MG Aspir-81 81 MG No 1{table t} QD Aspir-81 81 MG Levothyroxi ne Sodium 50 MCG Levothyroxi ne Sodium 50 MCG No QD Levothyrox ine Sodium 50 MCG Latanoprost 0.005 % Latanoprost 0.005 % No 1{drop_ into_af fected_ eye_in_ the_eve aleksandar} QD Latanopros t 0.005 % Levothyroxi ne Sodium 88 MCG Levothyroxi ne Sodium 88 MCG No Levothyrox ine Sodium 88 MCG Accu-Chek Softclix Lancets - Accu-Chek Softclix Lancets - No Accu-Chek Softclix Lancets - Atorvastati n Calcium 40 MG Atorvastati n Calcium 40 MG No 1{table t} QD Atorvastat in Calcium 40 MG Neurontin 100 MG Neurontin 100 MG No 2{capsu le} Neurontin 100 MG Omeprazole 20 MG Omeprazole 20 MG No QD Omeprazole 20 MG PriLOSEC 20 MG PriLOSEC 20 MG No 1{capsu le} QD PriLOSEC 20 MG Solifenacin Succinate 5 MG Solifenacin Succinate 5 MG No Solifenaci n Succinate 5 MG Cozaar 100 MG Cozaar 100 MG No 1{table t} QD Cozaar 100 MG VESIcare 5 MG VESIcare 5 MG No 1{table t} QD VESIcare 5 MG Accu-Chek Softclix Lancets - Accu-Chek Softclix Lancets - No Accu-Chek Softclix Lancets - Lipitor 40 MG Lipitor 40 MG No 1{table t} QD Lipitor 40 MG Flonase 50 MCG/ACT Flonase 50 MCG/ACT No 2{spray _in_eac h_nostr il} QD Flonase 50 MCG/ACT Losartan Potassium 100 MG Losartan Potassium 100 MG No 1{table t} QD Losartan Potassium 100 MG glipiZIDE 10 MG glipiZIDE 10 MG No 1{table t} BID glipiZIDE 10 MG amLODIPine Besylate 5 MG amLODIPine Besylate 5 MG No 1{table t} QD amLODIPine Besylate 5 MG Bisoprolol- hydroCHLORO thiazide 10-6.25 MG Bisoprolol- hydroCHLORO thiazide 10-6.25 MG No 1{table t} QD Bisoprolol -hydroCHLO ROthiazide 10-6.25 MG Hydrocortis one 5 MG Hydrocortis one 5 MG No BID Hydrocorti sone 5 MG Accu-Chek Danyell Plus - Accu-Chek Danyell Plus - No Accu-Chek Danyell Plus - Albuterol Sulfate 108 (90 Base) MCG/ACT Albuterol Sulfate 108 (90 Base) MCG/ACT No 2{puffs _as_nee ded} QID Albuterol Sulfate 108 (90 Base) MCG/ACT Levothyroxi ne Sodium 50 MCG Levothyroxi ne Sodium 50 MCG No QD Levothyrox ine Sodium 50 MCG Latanoprost 0.005 % Latanoprost 0.005 % No 1{drop_ into_af fected_ eye_in_ the_eve aleksandar} QD Latanopros t 0.005 % Latanoprost 0.005 % Latanoprost 0.005 % No 1{drop_ into_af fected_ eye_in_ the_eve aleksandar} QD Latanopros t 0.005 % amLODIPine Besylate 5 MG amLODIPine Besylate 5 MG No 1{table t} QD amLODIPine Besylate 5 MG Atorvastati n Calcium 40 MG Atorvastati n Calcium 40 MG No 1{table t} QD Atorvastat in Calcium 40 MG Neurontin 100 MG Neurontin 100 MG No 2{capsu le} Neurontin 100 MG Omeprazole 20 MG Omeprazole 20 MG No QD Omeprazole 20 MG Hydrocortis one 5 MG Hydrocortis one 5 MG No BID Hydrocorti sone 5 MG Magnesium Oxide 400 MG Magnesium Oxide 400 MG No 1{table t_as_ne eded} QD Magnesium Oxide 400 MG Solifenacin Succinate 5 MG Solifenacin Succinate 5 MG No Solifenaci n Succinate 5 MG Accu-Chek Softclix Lancets - Accu-Chek Softclix Lancets - No Accu-Chek Softclix Lancets - Lipitor 40 MG Lipitor 40 MG No 1{table t} QD Lipitor 40 MG VESIcare 5 MG VESIcare 5 MG No 1{table t} QD VESIcare 5 MG Albuterol Sulfate 108 (90 Base) MCG/ACT Albuterol Sulfate 108 (90 Base) MCG/ACT No 2{puffs _as_nee ded} QID Albuterol Sulfate 108 (90 Base) MCG/ACT Accu-Chek Danyell Plus - Accu-Chek Danyell Plus - No Accu-Chek Danyell Plus - PriLOSEC 20 MG PriLOSEC 20 MG No 1{capsu le} QD PriLOSEC 20 MG Cozaar 100 MG Cozaar 100 MG No 1{table t} QD Cozaar 100 MG Bisoprolol- hydroCHLORO thiazide 10-6.25 MG Bisoprolol- hydroCHLORO thiazide 10-6.25 MG No 1{table t} QD Bisoprolol -hydroCHLO ROthiazide 10-6.25 MG Levothyroxi ne Sodium 50 MCG Levothyroxi ne Sodium 50 MCG No QD Levothyrox ine Sodium 50 MCG Singulair 10 MG Singulair 10 MG No 1{table t_in_th e_eveni ng} QD Singulair 10 MG Losartan Potassium 100 MG Losartan Potassium 100 MG No 1{table t} QD Losartan Potassium 100 MG glipiZIDE 10 MG glipiZIDE 10 MG No glipiZIDE 10 MG amLODIPine Besylate 5 MG amLODIPine Besylate 5 MG No 1{table t} QD amLODIPine Besylate 5 MG Latanoprost 0.005 % Latanoprost 0.005 % No 1{drop_ into_af fected_ eye_in_ the_eve aleksandar} QD Latanopros t 0.005 % Lipitor 40 MG Lipitor 40 MG No 1{table t} QD Lipitor 40 MG Atorvastati n Calcium 40 MG Atorvastati n Calcium 40 MG No Atorvastat in Calcium 40 MG VESIcare 5 MG VESIcare 5 MG No 1{table t} QD VESIcare 5 MG Neurontin 100 MG Neurontin 100 MG No 2{capsu le} Neurontin 100 MG glipiZIDE 10 MG glipiZIDE 10 MG No 1{table t} QD glipiZIDE 10 MG glipiZIDE 10 MG glipiZIDE 10 MG No 1{table t} BID glipiZIDE 10 MG Bisoprolol- hydroCHLORO thiazide 10-6.25 MG Bisoprolol- hydroCHLORO thiazide 10-6.25 MG No 1{table t} QD Bisoprolol -hydroCHLO ROthiazide 10-6.25 MG glipiZIDE 10 MG glipiZIDE 10 MG No glipiZIDE 10 MG Accu-Chek Softclix Lancets - Accu-Chek Softclix Lancets - No Accu-Chek Softclix Lancets - Latanoprost 0.005 % Latanoprost 0.005 % No 1{drop_ into_af fected_ eye_in_ the_eve aleksandar} QD Latanopros t 0.005 % Accu-Chek Danyell Plus - Accu-Chek Danyell Plus - No Accu-Chek Danyell Plus - Levothyroxi ne Sodium 50 MCG Levothyroxi ne Sodium 50 MCG No QD Levothyrox ine Sodium 50 MCG amLODIPine Besylate 5 MG amLODIPine Besylate 5 MG No amLODIPine Besylate 5 MG Solifenacin Succinate 5 MG Solifenacin Succinate 5 MG No Solifenaci n Succinate 5 MG PriLOSEC 20 MG PriLOSEC 20 MG No 1{capsu le} QD PriLOSEC 20 MG Atorvastati n Calcium 40 MG Atorvastati n Calcium 40 MG No Atorvastat in Calcium 40 MG Accu-Chek Danyell Plus - Accu-Chek Danyell Plus - No Accu-Chek Danyell Plus - Hydrocortis one 5 MG Hydrocortis one 5 MG No BID Hydrocorti sone 5 MG Losartan Potassium 100 MG Losartan Potassium 100 MG No 1{table t} QD Losartan Potassium 100 MG Omeprazole 20 MG Omeprazole 20 MG No QD Omeprazole 20 MG Albuterol Sulfate 108 (90 Base) MCG/ACT Albuterol Sulfate 108 (90 Base) MCG/ACT No 2{puffs _as_nee ded} QID Albuterol Sulfate 108 (90 Base) MCG/ACT Myrbetriq 25 MG Myrbetriq 25 MG No 1{table t} QD Myrbetriq 25 MG Accu-Chek Danyell Plus - Accu-Chek Danyell Plus - No Accu-Chek Danyell Plus - Bisoprolol- hydroCHLORO thiazide 10-6.25 MG Bisoprolol- hydroCHLORO thiazide 10-6.25 MG No 1{table t} QD Bisoprolol -hydroCHLO ROthiazide 10-6.25 MG Atorvastati n Calcium 40 MG Atorvastati n Calcium 40 MG No Atorvastat in Calcium 40 MG Accu-Chek Danyell Plus - Accu-Chek Danyell Plus - No BID Accu-Chek Danyell Plus - Losartan Potassium 100 MG Losartan Potassium 100 MG No Losartan Potassium 100 MG amLODIPine Besylate 5 MG amLODIPine Besylate 5 MG No amLODIPine Besylate 5 MG Neurontin 100 MG Neurontin 100 MG No 2{capsu le} Neurontin 100 MG Solifenacin Succinate 5 MG Solifenacin Succinate 5 MG No Solifenaci n Succinate 5 MG Latanoprost 0.005 % Latanoprost 0.005 % No 1{drop_ into_af fected_ eye_in_ the_eve aleksandar} QD Latanopros t 0.005 % glipiZIDE 10 MG glipiZIDE 10 MG No glipiZIDE 10 MG Accu-Chek Softclix Lancets - Accu-Chek Softclix Lancets - No Accu-Chek Softclix Lancets - Hydrocortis one 5 MG Hydrocortis one 5 MG No BID Hydrocorti sone 5 MG Levothyroxi ne Sodium 50 MCG Levothyroxi ne Sodium 50 MCG No QD Levothyrox ine Sodium 50 MCG Omeprazole 20 MG Omeprazole 20 MG No QD Omeprazole 20 MG Estradiol 0.5 MG Estradiol 0.5 MG No Estradiol 0.5 MG Albuterol Sulfate 108 (90 Base) MCG/ACT Albuterol Sulfate 108 (90 Base) MCG/ACT No 2{puffs _as_nee ded} QID Albuterol Sulfate 108 (90 Base) MCG/ACT glipiZIDE 10 MG glipiZIDE 10 MG No 1{table t} BID glipiZIDE 10 MG PriLOSEC 20 MG PriLOSEC 20 MG No 1{capsu le} QD PriLOSEC 20 MG Accu-Chek Danyell Plus - Accu-Chek Danyell Plus - No Accu-Chek Danyell Plus - Accu-Chek Danyell Plus - Accu-Chek Danyell Plus - No Accu-Chek Danyell Plus - VESIcare 5 MG VESIcare 5 MG No 1{table t} QD VESIcare 5 MG Albuterol Sulfate 108 (90 Base) MCG/ACT Albuterol Sulfate 108 (90 Base) MCG/ACT No 2{puffs _as_nee ded} QID Albuterol Sulfate 108 (90 Base) MCG/ACT Bisoprolol- hydroCHLORO thiazide 10-6.25 MG Bisoprolol- hydroCHLORO thiazide 10-6.25 MG No 1{table t} QD Bisoprolol -hydroCHLO ROthiazide 10-6.25 MG Atorvastati n Calcium 40 MG Atorvastati n Calcium 40 MG No Atorvastat in Calcium 40 MG Losartan Potassium 100 MG Losartan Potassium 100 MG No Losartan Potassium 100 MG amLODIPine Besylate 5 MG amLODIPine Besylate 5 MG No amLODIPine Besylate 5 MG Neurontin 100 MG Neurontin 100 MG No 2{capsu le} Neurontin 100 MG Neurontin 100 MG Neurontin 100 MG No 1{capsu le} TID Neurontin 100 MG Solifenacin Succinate 5 MG Solifenacin Succinate 5 MG No Solifenaci n Succinate 5 MG Latanoprost 0.005 % Latanoprost 0.005 % No 1{drop_ into_af fected_ eye_in_ the_eve aleksandar} QD Latanopros t 0.005 % glipiZIDE 10 MG glipiZIDE 10 MG No glipiZIDE 10 MG Accu-Chek Softclix Lancets - Accu-Chek Softclix Lancets - No Accu-Chek Softclix Lancets - Hydrocortis one 5 MG Hydrocortis one 5 MG No BID Hydrocorti sone 5 MG Levothyroxi ne Sodium 50 MCG Levothyroxi ne Sodium 50 MCG No QD Levothyrox ine Sodium 50 MCG Omeprazole 20 MG Omeprazole 20 MG No QD Omeprazole 20 MG Albuterol Sulfate 108 (90 Base) MCG/ACT Albuterol Sulfate 108 (90 Base) MCG/ACT No 2{puffs _as_nee ded} QID Albuterol Sulfate 108 (90 Base) MCG/ACT glipiZIDE 10 MG glipiZIDE 10 MG No 1{table t} BID glipiZIDE 10 MG PriLOSEC 20 MG PriLOSEC 20 MG No 1{capsu le} QD PriLOSEC 20 MG Levothyroxi ne Sodium 88 MCG Levothyroxi ne Sodium 88 MCG No QD Levothyrox ine Sodium 88 MCG Accu-Chek Danyell Plus - Accu-Chek Danyell Plus - No Accu-Chek Danyell Plus - Accu-Chek Danyell Plus - Accu-Chek Danyell Plus - No Accu-Chek Danyell Plus - VESIcare 5 MG VESIcare 5 MG No 1{table t} QD VESIcare 5 MG Cozaar 100 MG Cozaar 100 MG No 1{table t} QD Cozaar 100 MG Bisoprolol- hydroCHLORO thiazide 10-6.25 MG Bisoprolol- hydroCHLORO thiazide 10-6.25 MG No 1{table t} QD Bisoprolol -hydroCHLO ROthiazide 10-6.25 MG Atorvastati n Calcium 40 MG Atorvastati n Calcium 40 MG No Atorvastat in Calcium 40 MG Losartan Potassium 100 MG Losartan Potassium 100 MG No Losartan Potassium 100 MG amLODIPine Besylate 5 MG amLODIPine Besylate 5 MG No amLODIPine Besylate 5 MG Neurontin 100 MG Neurontin 100 MG No 2{capsu le} Neurontin 100 MG Solifenacin Succinate 5 MG Solifenacin Succinate 5 MG No Solifenaci n Succinate 5 MG Latanoprost 0.005 % Latanoprost 0.005 % No 1{drop_ into_af fected_ eye_in_ the_eve aleksandar} QD Latanopros t 0.005 % glipiZIDE 10 MG glipiZIDE 10 MG No glipiZIDE 10 MG Accu-Chek Softclix Lancets - Accu-Chek Softclix Lancets - No Accu-Chek Softclix Lancets - PriLOSEC 20 MG PriLOSEC 20 MG No 1{capsu le} QD PriLOSEC 20 MG Hydrocortis one 5 MG Hydrocortis one 5 MG No BID Hydrocorti sone 5 MG Levothyroxi ne Sodium 50 MCG Levothyroxi ne Sodium 50 MCG No QD Levothyrox ine Sodium 50 MCG Omeprazole 20 MG Omeprazole 20 MG No QD Omeprazole 20 MG Albuterol Sulfate 108 (90 Base) MCG/ACT Albuterol Sulfate 108 (90 Base) MCG/ACT No 2{puffs _as_nee ded} QID Albuterol Sulfate 108 (90 Base) MCG/ACT glipiZIDE 10 MG glipiZIDE 10 MG No 1{table t} BID glipiZIDE 10 MG PriLOSEC 20 MG PriLOSEC 20 MG No 1{capsu le} QD PriLOSEC 20 MG Accu-Chek Danyell Plus - Accu-Chek Danyell Plus - No Accu-Chek Danyell Plus - Accu-Chek Danyell Plus - Accu-Chek Danyell Plus - No Accu-Chek Danyell Plus - VESIcare 5 MG VESIcare 5 MG No 1{table t} QD VESIcare 5 MG amLODIPine Besylate 5 MG amLODIPine Besylate 5 MG No 1{table t} QD amLODIPine Besylate 5 MG Bisoprolol- hydroCHLORO thiazide 10-6.25 MG Bisoprolol- hydroCHLORO thiazide 10-6.25 MG No 1{table t} QD Bisoprolol -hydroCHLO ROthiazide 10-6.25 MG Bisoprolol- hydroCHLORO thiazide 10-6.25 MG Bisoprolol- hydroCHLORO thiazide 10-6.25 MG No 1{table t} QD Bisoprolol -hydroCHLO ROthiazide 10-6.25 MG Atorvastati n Calcium 40 MG Atorvastati n Calcium 40 MG No Atorvastat in Calcium 40 MG Losartan Potassium 100 MG Losartan Potassium 100 MG No Losartan Potassium 100 MG amLODIPine Besylate 5 MG amLODIPine Besylate 5 MG No amLODIPine Besylate 5 MG Neurontin 100 MG Neurontin 100 MG No 2{capsu le} Neurontin 100 MG Solifenacin Succinate 5 MG Solifenacin Succinate 5 MG No Solifenaci n Succinate 5 MG Latanoprost 0.005 % Latanoprost 0.005 % No 1{drop_ into_af fected_ eye_in_ the_eve aleksandar} QD Latanopros t 0.005 % glipiZIDE 10 MG glipiZIDE 10 MG No glipiZIDE 10 MG Accu-Chek Softclix Lancets - Accu-Chek Softclix Lancets - No Accu-Chek Softclix Lancets - Hydrocortis one 5 MG Hydrocortis one 5 MG No BID Hydrocorti sone 5 MG Levothyroxi ne Sodium 50 MCG Levothyroxi ne Sodium 50 MCG No QD Levothyrox ine Sodium 50 MCG Omeprazole 20 MG Omeprazole 20 MG No QD Omeprazole 20 MG Albuterol Sulfate 108 (90 Base) MCG/ACT Albuterol Sulfate 108 (90 Base) MCG/ACT No 2{puffs _as_nee ded} QID Albuterol Sulfate 108 (90 Base) MCG/ACT glipiZIDE 10 MG glipiZIDE 10 MG No 1{table t} BID glipiZIDE 10 MG PriLOSEC 20 MG PriLOSEC 20 MG No 1{capsu le} QD PriLOSEC 20 MG Accu-Chek Danyell Plus - Accu-Chek Danyell Plus - No Accu-Chek Danyell Plus - Accu-Chek Danyell Plus - Accu-Chek Danyell Plus - No Accu-Chek Danyell Plus - VESIcare 5 MG VESIcare 5 MG No 1{table t} QD VESIcare 5 MG Immunizations Ordered Immunization Name Filled Immunization Name Date Status Comments Source Influenza, seasonal, injectable 2022-05-06 00:00:00 Completed [facility] Influenza, seasonal, injectable 2022-05-06 00:00:00 Completed [facility] Influenza, seasonal, injectable 2022-05-06 00:00:00 Completed [facility] Influenza, seasonal, injectable 2022-05-06 00:00:00 Completed [facility] Influenza, seasonal, injectable 2022-05-06 00:00:00 Completed [facility] Influenza, seasonal, injectable 2022-05-06 00:00:00 Completed [facility] FLUZONE HIGH DOSE OVER 65 FLUZONE HIGH DOSE OVER 65 2022-04-11 14:24:00 Completed [facility] FLUZONE HIGH DOSE OVER 65 FLUZONE HIGH DOSE OVER 65 2022-04-11 14:24:00 Completed [facility] FLUZONE HIGH DOSE OVER 65 FLUZONE HIGH DOSE OVER 65 2022-04-11 14:24:00 Completed [facility] FLUZONE HIGH DOSE OVER 65 FLUZONE HIGH DOSE OVER 65 2022-04-11 14:24:00 Completed [facility] FLUZONE HIGH DOSE OVER 65 FLUZONE HIGH DOSE OVER 65 2022-04-11 14:24:00 Completed [facility] FLUZONE HIGH DOSE OVER 65 FLUZONE HIGH DOSE OVER 65 2022-04-11 14:24:00 Completed [facility] FLUZONE HIGH DOSE OVER 65 FLUZONE HIGH DOSE OVER 65 2022-04-11 14:24:00 Completed [facility] Influenza, High Dose Seasonal (fluzone) 2022-04-11 00:00:00 Completed [facility] Influenza, High Dose Seasonal (fluzone) 2022-04-11 00:00:00 Completed [facility] Influenza, High Dose Seasonal (fluzone) 2022-04-11 00:00:00 Completed [facility] Influenza, High Dose Seasonal (fluzone) 2022-04-11 00:00:00 Completed [facility] Influenza, High Dose Seasonal (fluzone) 2022-04-11 00:00:00 Completed [facility] Influenza, High Dose Seasonal (fluzone) 2022-04-11 00:00:00 Completed [facility] Influenza, High Dose Seasonal (fluzone) 2022-04-11 00:00:00 Completed [facility] Influenza, High Dose Seasonal (fluzone) 2022-04-11 00:00:00 Completed [facility] Influenza, High Dose Seasonal (fluzone) 2022-04-11 00:00:00 Completed [facility] BEBTELOVIMAB 2021-12-19 00:00:00 Completed [facility] BEBTELOVIMAB 2021-12-19 00:00:00 Completed [facility] BEBTELOVIMAB 2021-12-19 00:00:00 Completed [facility] BEBTELOVIMAB 2021-12-19 00:00:00 Completed [facility] BEBTELOVIMAB 2021-12-19 00:00:00 Completed [facility] BEBTELOVIMAB 2021-12-19 00:00:00 Completed [facility] BEBTELOVIMAB 2021-12-19 00:00:00 Completed [facility] BEBTELOVIMAB 2021-12-19 00:00:00 Completed [facility] BEBTELOVIMAB 2021-12-19 00:00:00 Completed [facility] BEBTELOVIMAB 2021-12-19 00:00:00 Completed [facility] BEBTELOVIMAB 2021-12-19 00:00:00 Completed [facility] BEBTELOVIMAB 2021-12-19 00:00:00 Completed [facility] BEBTELOVIMAB 2021-12-19 00:00:00 Completed [facility] BEBTELOVIMAB 2021-12-19 00:00:00 Completed [facility] BEBTELOVIMAB 2021-12-19 00:00:00 Completed [facility] BEBTELOVIMAB 2021-12-19 00:00:00 Completed [facility] BEBTELOVIMAB 2021-12-19 00:00:00 Completed [facility] BEBTELOVIMAB 2021-12-19 00:00:00 Completed [facility] Moderna COVID-19 Vaccine (Low Dose Booster) Moderna COVID-19 Vaccine (Low Dose Booster) 2021-05-31 15:06:00 Completed [facility] Moderna COVID-19 Vaccine (Low Dose Booster) Moderna COVID-19 Vaccine (Low Dose Booster) 2021-05-31 15:06:00 Completed [facility] Moderna COVID-19 Vaccine (Low Dose Booster) Moderna COVID-19 Vaccine (Low Dose Booster) 2021-05-31 15:06:00 Completed [facility] Moderna COVID-19 Vaccine (Low Dose Booster) Moderna COVID-19 Vaccine (Low Dose Booster) 2021-05-31 15:06:00 Completed [facility] Moderna COVID-19 Vaccine (Low Dose Booster) Moderna COVID-19 Vaccine (Low Dose Booster) 2021-05-31 15:06:00 Completed [facility] Moderna COVID-19 Vaccine (Low Dose Booster) Moderna COVID-19 Vaccine (Low Dose Booster) 2021-05-31 15:06:00 Completed [facility] Moderna COVID-19 Vaccine (Low Dose Booster) Moderna COVID-19 Vaccine (Low Dose Booster) 2021-05-31 15:06:00 Completed [facility] Moderna COVID-19 Vaccine (Low Dose Booster) Moderna COVID-19 Vaccine (Low Dose Booster) 2021-05-31 15:06:00 Completed [facility] Moderna COVID-19 Vaccine (Low Dose Booster) Moderna COVID-19 Vaccine (Low Dose Booster) 2021-05-31 15:06:00 Completed [facility] Moderna COVID-19 Vaccine (Low Dose Booster) Moderna COVID-19 Vaccine (Low Dose Booster) 2021-05-31 15:06:00 Completed [facility] Moderna COVID-19 Vaccine (Low Dose Booster) Moderna COVID-19 Vaccine (Low Dose Booster) 2021-05-31 15:06:00 Completed [facility] Moderna COVID-19 Vaccine (Low Dose Booster) Moderna COVID-19 Vaccine (Low Dose Booster) 2021-05-31 15:06:00 Completed [facility] Moderna COVID-19 Vaccine (Low Dose Booster) Moderna COVID-19 Vaccine (Low Dose Booster) 2021-05-31 15:06:00 Completed [facility] Moderna COVID-19 Vaccine (Low Dose Booster) Moderna COVID-19 Vaccine (Low Dose Booster) 2021-05-31 15:06:00 Completed [facility] Moderna COVID-19 Vaccine (Low Dose Booster) Moderna COVID-19 Vaccine (Low Dose Booster) 2021-05-31 15:06:00 Completed [facility] FluAD FluAD 2021-05-31 15:05:00 Completed [facility] FluAD FluAD 2021-05-31 15:05:00 Completed [facility] FluAD FluAD 2021-05-31 15:05:00 Completed [facility] FluAD FluAD 2021-05-31 15:05:00 Completed [facility] FluAD FluAD 2021-05-31 15:05:00 Completed [facility] FluAD FluAD 2021-05-31 15:05:00 Completed [facility] FluAD FluAD 2021-05-31 15:05:00 Completed [facility] FluAD FluAD 2021-05-31 15:05:00 Completed [facility] FluAD FluAD 2021-05-31 15:05:00 Completed [facility] FluAD FluAD 2021-05-31 15:05:00 Completed [facility] FluAD FluAD 2021-05-31 15:05:00 Completed [facility] FluAD FluAD 2021-05-31 15:05:00 Completed [facility] FluAD FluAD 2021-05-31 15:05:00 Completed [facility] FluAD FluAD 2021-05-31 15:05:00 Completed [facility] FluAD FluAD 2021-05-31 15:05:00 Completed [facility] COVID-19 Moderna 12 & 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) 2021-05-31 00:00:00 Completed [facility] COVID-19 Moderna 12 & 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) 2021-05-31 00:00:00 Completed [facility] COVID-19 Moderna 12 & 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) 2021-05-31 00:00:00 Completed [facility] COVID-19 Moderna 12 & 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) 2021-05-31 00:00:00 Completed [facility] COVID-19 Moderna 12 & 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) 2021-05-31 00:00:00 Completed [facility] COVID-19 Moderna 12 & 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) 2021-05-31 00:00:00 Completed [facility] COVID-19 Moderna Primary 12+yr (red) 2021-05-31 00:00:00 Completed [facility] COVID-19 Moderna 12 & 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) 2021-05-31 00:00:00 Completed [facility] COVID-19 Moderna 12 & 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) 2021-05-31 00:00:00 Completed [facility] COVID-19 Vaccine (Tamiko) COVID-19 Vaccine (Tamiko) 2020-11-28 09:40:00 Completed [facility] FluAD FluAD 2019-04-12 11:32:00 Completed [facility] FluAD FluAD 2019-04-12 11:32:00 Completed [facility] FluAD FluAD 2019-04-12 11:32:00 Completed [facility] FluAD FluAD 2019-04-12 11:32:00 Completed [facility] FluAD FluAD 2019-04-12 11:32:00 Completed [facility] FluAD FluAD 2019-04-12 11:32:00 Completed [facility] FluAD FluAD 2019-04-12 11:32:00 Completed [facility] FluAD FluAD 2019-04-12 11:32:00 Completed [facility] FluAD FluAD 2019-04-12 11:32:00 Completed [facility] FluAD FluAD 2019-04-12 11:32:00 Completed [facility] FluAD FluAD 2019-04-12 11:32:00 Completed [facility] FluAD FluAD 2019-04-12 11:32:00 Completed [facility] FluAD FluAD 2019-04-12 11:32:00 Completed [facility] FluAD FluAD 2019-04-12 11:32:00 Completed [facility] FluAD FluAD 2019-04-12 11:32:00 Completed [facility] FluAD FluAD 2019-04-12 11:32:00 Completed [facility] FluAD FluAD 2019-04-12 11:32:00 Completed [facility] FluAD FluAD 2019-04-12 00:00:00 Completed [facility] FLUZONE HIGH DOSE OVER 65 FLUZONE HIGH DOSE OVER 65 2018-03-23 09:08:00 Completed [facility] FLUZONE HIGH DOSE OVER 65 FLUZONE HIGH DOSE OVER 65 2018-03-23 09:08:00 Completed [facility] FLUZONE HIGH DOSE OVER 65 FLUZONE HIGH DOSE OVER 65 2018-03-23 09:08:00 Completed [facility] FLUZONE HIGH DOSE OVER 65 FLUZONE HIGH DOSE OVER 65 2018-03-23 09:08:00 Completed [facility] FLUZONE HIGH DOSE OVER 65 FLUZONE HIGH DOSE OVER 65 2018-03-23 09:08:00 Completed [facility] FLUZONE HIGH DOSE OVER 65 FLUZONE HIGH DOSE OVER 65 2018-03-23 09:08:00 Completed [facility] FLUZONE HIGH DOSE OVER 65 FLUZONE HIGH DOSE OVER 65 2018-03-23 09:08:00 Completed [facility] FLUZONE HIGH DOSE OVER 65 FLUZONE HIGH DOSE OVER 65 2018-03-23 09:08:00 Completed [facility] FLUZONE HIGH DOSE OVER 65 FLUZONE HIGH DOSE OVER 65 2018-03-23 09:08:00 Completed [facility] FLUZONE HIGH DOSE OVER 65 FLUZONE HIGH DOSE OVER 65 2018-03-23 09:08:00 Completed [facility] FLUZONE HIGH DOSE OVER 65 FLUZONE HIGH DOSE OVER 65 2018-03-23 09:08:00 Completed [facility] FLUZONE HIGH DOSE OVER 65 FLUZONE HIGH DOSE OVER 65 2018-03-23 09:08:00 Completed [facility] FLUZONE HIGH DOSE OVER 65 FLUZONE HIGH DOSE OVER 65 2018-03-23 09:08:00 Completed [facility] FLUZONE HIGH DOSE OVER 65 FLUZONE HIGH DOSE OVER 65 2018-03-23 09:08:00 Completed [facility] FLUZONE HIGH DOSE OVER 65 FLUZONE HIGH DOSE OVER 65 2018-03-23 09:08:00 Completed [facility] FLUZONE HIGH DOSE OVER 65 FLUZONE HIGH DOSE OVER 65 2018-03-23 09:08:00 Completed [facility] FLUZONE HIGH DOSE OVER 65 FLUZONE HIGH DOSE OVER 65 2018-03-23 09:08:00 Completed [facility] FLUZONE HIGH DOSE OVER 65 FLUZONE HIGH DOSE OVER 65 2018-03-23 00:00:00 Completed [facility] Influenza, High Dose Seasonal (fluzone) 2018-03-23 00:00:00 Completed [facility] Influenza, High Dose Seasonal (fluzone) 2018-03-23 00:00:00 Completed [facility] Influenza, High Dose Seasonal (fluzone) 2018-03-23 00:00:00 Completed [facility] Influenza, High Dose Seasonal (fluzone) 2018-03-23 00:00:00 Completed [facility] Influenza, High Dose Seasonal (fluzone) 2018-03-23 00:00:00 Completed [facility] Influenza, High Dose Seasonal (fluzone) 2018-03-23 00:00:00 Completed [facility] Influenza, High Dose Seasonal (fluzone) 2018-03-23 00:00:00 Completed [facility] Influenza, High Dose Seasonal (fluzone) 2018-03-23 00:00:00 Completed [facility] Influenza, High Dose Seasonal (fluzone) 2018-03-23 00:00:00 Completed [facility] Moderna COVID-19 Vaccine (Low Dose Booster) Moderna COVID-19 Vaccine (Low Dose Booster) Unknown Completed [facility] FluAD FluAD Unknown Completed [facility] FluAD FluAD Unknown Completed [facility] FLUZONE HIGH DOSE OVER 65 FLUZONE HIGH DOSE OVER 65 Unknown Completed [facility] FLUZONE HIGH DOSE OVER 65 FLUZONE HIGH DOSE OVER 65 Unknown Completed [facility] Fluad (aIIV4) - SDS - 0.5mL Fluad (aIIV4) - SDS - 0.5mL Unknown Completed [facility] Moderna COVID-19 Vaccine (Low Dose Booster) Moderna COVID-19 Vaccine (Low Dose Booster) Unknown Completed [facility] FluAD FluAD Unknown Completed [facility] FluAD FluAD Unknown Completed [facility] FLUZONE HIGH DOSE OVER 65 FLUZONE HIGH DOSE OVER 65 Unknown Completed [facility] FLUZONE HIGH DOSE OVER 65 FLUZONE HIGH DOSE OVER 65 Unknown Completed [facility] Fluad (aIIV4) - SDS - 0.5mL Fluad (aIIV4) - SDS - 0.5mL Unknown Completed [facility] Moderna COVID-19 Vaccine (Low Dose Booster) Moderna COVID-19 Vaccine (Low Dose Booster) Unknown Completed [facility] FluAD FluAD Unknown Completed [facility] FluAD FluAD Unknown Completed [facility] FLUZONE HIGH DOSE OVER 65 FLUZONE HIGH DOSE OVER 65 Unknown Completed [facility] FLUZONE HIGH DOSE OVER 65 FLUZONE HIGH DOSE OVER 65 Unknown Completed [facility] Fluad (aIIV4) - SDS - 0.5mL Fluad (aIIV4) - SDS - 0.5mL Unknown Completed [facility] MODERNA COVID-19 VACCINE (LOW DOSE BOOSTER) MODERNA COVID-19 VACCINE (LOW DOSE BOOSTER) Unknown Completed [facility] FluAD FluAD Unknown Completed [facility] FluAD FluAD Unknown Completed [facility] FLUZONE HIGH DOSE OVER 65 FLUZONE HIGH DOSE OVER 65 Unknown Completed [facility] FLUZONE HIGH DOSE OVER 65 FLUZONE HIGH DOSE OVER 65 Unknown Completed [facility] Fluad (aIIV4) - SDS - 0.5mL Fluad (aIIV4) - SDS - 0.5mL Unknown Completed [facility] MODERNA COVID-19 VACCINE (LOW DOSE BOOSTER) MODERNA COVID-19 VACCINE (LOW DOSE BOOSTER) Unknown Completed [facility] FluAD FluAD Unknown Completed [facility] FluAD FluAD Unknown Completed [facility] FLUZONE HIGH DOSE OVER 65 FLUZONE HIGH DOSE OVER 65 Unknown Completed [facility] FLUZONE HIGH DOSE OVER 65 FLUZONE HIGH DOSE OVER 65 Unknown Completed [facility] Fluad (aIIV4) - SDS - 0.5mL Fluad (aIIV4) - SDS - 0.5mL Unknown Completed [facility] MODERNA COVID-19 VACCINE (LOW DOSE BOOSTER) MODERNA COVID-19 VACCINE (LOW DOSE BOOSTER) Unknown Completed [facility] FluAD FluAD Unknown Completed [facility] FluAD FluAD Unknown Completed [facility] FLUZONE HIGH DOSE OVER 65 FLUZONE HIGH DOSE OVER 65 Unknown Completed [facility] FLUZONE HIGH DOSE OVER 65 FLUZONE HIGH DOSE OVER 65 Unknown Completed [facility] FluAD Quad SD FluAD Quad SD Unknown Completed [facility] Moderna COVID-19 Vaccine (Low Dose Booster) Moderna COVID-19 Vaccine (Low Dose Booster) Unknown Completed [facility] FluAD FluAD Unknown Completed [facility] FluAD FluAD Unknown Completed [facility] FLUZONE HIGH DOSE OVER 65 FLUZONE HIGH DOSE OVER 65 Unknown Completed [facility] FLUZONE HIGH DOSE OVER 65 FLUZONE HIGH DOSE OVER 65 Unknown Completed [facility] FluAD Quad SD FluAD Quad SD Unknown Completed [facility] Moderna COVID-19 Vaccine (Low Dose Booster) Moderna COVID-19 Vaccine (Low Dose Booster) Unknown Completed [facility] FluAD FluAD Unknown Completed [facility] FluAD FluAD Unknown Completed [facility] FLUZONE HIGH DOSE OVER 65 FLUZONE HIGH DOSE OVER 65 Unknown Completed [facility] FLUZONE HIGH DOSE OVER 65 FLUZONE HIGH DOSE OVER 65 Unknown Completed [facility] FluAD Quad SD FluAD Quad SD Unknown Completed [facility] Moderna COVID-19 Vaccine (Low Dose Booster) Moderna COVID-19 Vaccine (Low Dose Booster) Unknown Completed [facility] FluAD FluAD Unknown Completed [facility] FluAD FluAD Unknown Completed [facility] FLUZONE HIGH DOSE OVER 65 FLUZONE HIGH DOSE OVER 65 Unknown Completed [facility] FLUZONE HIGH DOSE OVER 65 FLUZONE HIGH DOSE OVER 65 Unknown Completed [facility] FluAD Quad SD FluAD Quad SD Unknown Completed [facility] Moderna COVID-19 Vaccine (Low Dose Booster) Moderna COVID-19 Vaccine (Low Dose Booster) Unknown Completed [facility] FluAD FluAD Unknown Completed [facility] FluAD FluAD Unknown Completed [facility] FLUZONE HIGH DOSE OVER 65 FLUZONE HIGH DOSE OVER 65 Unknown Completed [facility] FLUZONE HIGH DOSE OVER 65 FLUZONE HIGH DOSE OVER 65 Unknown Completed [facility] FluAD Quad SD FluAD Quad SD Unknown Completed [facility] Moderna COVID-19 Vaccine (Low Dose Booster) Moderna COVID-19 Vaccine (Low Dose Booster) Unknown Completed [facility] FluAD FluAD Unknown Completed [facility] FluAD FluAD Unknown Completed [facility] FLUZONE HIGH DOSE OVER 65 FLUZONE HIGH DOSE OVER 65 Unknown Completed [facility] FLUZONE HIGH DOSE OVER 65 FLUZONE HIGH DOSE OVER 65 Unknown Completed [facility] FluAD Quad SD FluAD Quad SD Unknown Completed [facility] Moderna COVID-19 Vaccine (Low Dose Booster) Moderna COVID-19 Vaccine (Low Dose Booster) Unknown Completed [facility] FluAD FluAD Unknown Completed [facility] FluAD FluAD Unknown Completed [facility] FLUZONE HIGH DOSE OVER 65 FLUZONE HIGH DOSE OVER 65 Unknown Completed [facility] FLUZONE HIGH DOSE OVER 65 FLUZONE HIGH DOSE OVER 65 Unknown Completed [facility] FluAD Quad SD FluAD Quad SD Unknown Completed [facility] Moderna COVID-19 Vaccine (Low Dose Booster) Moderna COVID-19 Vaccine (Low Dose Booster) Unknown Completed [facility] FluAD FluAD Unknown Completed [facility] FluAD FluAD Unknown Completed [facility] FLUZONE HIGH DOSE OVER 65 FLUZONE HIGH DOSE OVER 65 Unknown Completed [facility] FLUZONE HIGH DOSE OVER 65 FLUZONE HIGH DOSE OVER 65 Unknown Completed [facility] Fluad (aIIV4) - SDS - 0.5mL Fluad (aIIV4) - SDS - 0.5mL Unknown Completed [facility] Influenza, High Dose Seasonal (fluzone) Unknown Completed [facility] Influenza, High Dose Seasonal (fluzone) Unknown Completed [facility] COVID-19 Moderna Primary 12+yr (red) [facility] Influ[facility], [facility], injectable Unknown Completed [facility] Vital Signs Vital Name Observation Time Observation Value Comments S ource height 2023-10-01 10:40:00 59.00 [in_i] Com [facility] weight 2023-10-01 10:40:00 163 [lb_av] Comm on [facility] temperature 2023-10-01 10:40:00 97.2 [degF] Com [facility] bmi 2023-10-01 10:40:00 32.92 kg/m2 Comm on [facility] oximetry 2023-10-01 10:40:00 98 % Commo n [facility] respiratory rate 2023-10-01 10:40:00 16 /min [facility] blood pressure systolic 2023-10-01 10:40:00 122 mm[Hg] [facility] blood pressure diastolic 2023-10-01 10:40:00 70 mm[Hg] [facility] Systolic blood pressure 2023-09-28 14:51:00 149 mm[Hg] [facility] Diastolic blood pressure 2023-09-28 14:51:00 72 mm[Hg] [facility] Heart rate 2023-09-28 14:51:00 65 /min [facility] Res[facility] 2023-09-28 14:51:00 16 /min [facility] Body weight 2023-09-28 14:51:00 [facility]39 [facility] BMI 2023-09-28 14:51:00 33.12 kg[facility]m2 [facility] height 2023-09-04 15:00:00 59.00 [in_i] Com [facility] weight 2023-09-04 15:00:00 165.4 [lb_av] Co mmon [facility] temperature 2023-09-04 15:00:00 97.4 [degF] Com [facility] bmi 2023-09-04 15:00:00 33.4 kg/m2 Commo n [facility] oximetry 2023-09-04 15:00:00 97 % Commo n [facility] respiratory rate 2023-09-04 15:00:00 16 /min Common [facility] blood pressure systolic 2023-09-04 15:00:00 126 mm[Hg] [facility] blood pressure diastolic 2023-09-04 15:00:00 68 mm[Hg] Common [facility] height 2023-09-04 15:00:00 59.00 [in_i] Com [facility] weight 2023-09-04 15:00:00 165.4 [lb_av] Co mmon [facility] temperature 2023-09-04 15:00:00 97.4 [degF] Com [facility] bmi 2023-09-04 15:00:00 33.4 kg/m2 Commo n [facility] oximetry 2023-09-04 15:00:00 97 % Commo n [facility] respiratory rate 2023-09-04 15:00:00 16 /min Common [facility] blood pressure systolic 2023-09-04 15:00:00 126 mm[Hg] Common [facility] blood pressure diastolic 2023-09-04 15:00:00 68 mm[Hg] Common [facility] height 2023-05-28 09:40:00 59.00 [in_i] Com [facility] weight 2023-05-28 09:40:00 163.2 [lb_av] Co [facility] temperature 2023-05-28 09:40:00 97.2 [degF] Com [facility] bmi 2023-05-28 09:40:00 32.96 kg/m2 Comm on [facility] oximetry 2023-05-28 09:40:00 97 % Commo n [facility] respiratory rate 2023-05-28 09:40:00 16 /min [facility] blood pressure systolic 2023-05-28 09:40:00 130 mm[Hg] [facility] blood pressure diastolic 2023-05-28 09:40:00 80 mm[Hg] [facility] [facility] height 2023-04-24 08:20:00 59.00 [in_i] Com [facility] weight 2023-04-24 08:20:00 166.0 [lb_av] Co [facility] temperature 2023-04-24 08:20:00 97.6 [degF] Com [facility] bmi 2023-04-24 08:20:00 33.52 kg/m2 Comm on [facility] oximetry 2023-04-24 08:20:00 96 % Commo n [facility] respiratory rate 2023-04-24 08:20:00 16 /min Common [facility] blood pressure systolic 2023-04-24 08:20:00 124 mm[Hg] Common [facility] blood pressure diastolic 2023-04-24 08:20:00 60 mm[Hg] [facility] height 2023-02-25 09:40:00 59.00 [in_i] Com [facility] weight 2023-02-25 09:40:00 167 [lb_av] Comm on [facility] temperature 2023-02-25 09:40:00 97.5 [degF] Com [facility] bmi 2023-02-25 09:40:00 33.73 kg/m2 Comm on [facility] oximetry 2023-02-25 09:40:00 97 % Commo n [facility] respiratory rate 2023-02-25 09:40:00 16 /min Common [facility] blood pressure systolic 2023-02-25 09:40:00 130 mm[Hg] [facility] blood pressure diastolic 2023-02-25 09:40:00 66 mm[Hg] [facility] Systolic blood pressure 2022-12-29 19:27:00 138 mm[Hg] [facility] Diastolic blood pressure 2022-12-29 19:27:00 72 mm[Hg] [facility] Heart rate 2022-12-29 19:27:00 63 /min [facility] Body height 2022-12-29 19:27:00 149.9 cm [facility] Body weight 2022-12-29 19:27:00 75.887 kg [facility] BMI 2022-12-29 19:27:00 33.79 kg/m2 [facility] height 2022-11-25 10:00:00 59.00 [in_i] Com [facility] weight 2022-11-25 10:00:00 161.2 [lb_av] Co mmon [facility] temperature 2022-11-25 10:00:00 97.9 [degF] Com [facility] bmi 2022-11-25 10:00:00 32.55 kg/m2 Comm on [facility] oximetry 2022-11-25 10:00:00 95 % Commo n [facility] respiratory rate 2022-11-25 10:00:00 16 /min Common [facility] blood pressure systolic 2022-11-25 10:00:00 138 mm[Hg] Common [facility] blood pressure diastolic 2022-11-25 10:00:00 89 mm[Hg] Common [facility] Systolic blood pressure 2022-11-04 14:50:00 146 mm[Hg] [facility] Diastolic blood pressure 2022-11-04 14:50:00 71 mm[Hg] [facility] Heart rate 2022-11-04 14:50:00 61 /min [facility] Res[facility] 2022-11-04 14:50:00 16 /min [facility] Body height 2022-11-04 14:50:00 149.9 [facility] 2022-11-04 14:50:00 73[facility]936 [facility] BMI 2022-11-04 14:50:00 32.92 kg/m2 [facility] height 2022-10-31 15:35:00 152.4 cm [facility] Body weight 2022-10-31 15:35:00 73.483 kg [facility] BMI 2022-10-31 15:35:00 31.64 kg/m2 [facility] height 2022-10-20 13:20:00 59.00 [in_i] Com [facility] weight 2022-10-20 13:20:00 165.0 [lb_av] Co mmon [facility] temperature 2022-10-20 13:20:00 97.9 [degF] Com mon [facility] bmi 2022-10-20 13:20:00 33.32 kg/m2 Comm on [facility] oximetry 2022-10-20 13:20:00 96 % Commo n [facility] respiratory rate 2022-10-20 13:20:00 16 /min [facility] blood pressure systolic 2022-10-20 13:20:00 138 mm[Hg] [facility] blood pressure diastolic 2022-10-20 13:20:00 72 mm[Hg] [facility] height 2022-10-20 14:20:00 59.00 [in_i] Com [facility] weight 2022-10-20 14:20:00 165.0 [lb_av] Co mmon [facility] temperature 2022-10-20 14:20:00 97.9 [degF] Com mon [facility] bmi 2022-10-20 14:20:00 33.32 kg/m2 Comm on [facility] oximetry 2022-10-20 14:20:00 96 % Commo n [facility] respiratory rate 2022-10-20 14:20:00 16 /min [facility] blood pressure systolic 2022-10-20 14:20:00 138 mm[Hg] [facility] blood pressure diastolic 2022-10-20 14:20:00 72 mm[Hg] [facility] Systolic blood pressure 2022-07-08 15:51:00 132 mm[Hg] [facility] Diastolic blood pressure 2022-07-08 15:51:00 73 mm[Hg] [facility] Heart rate 2022-07-08 15:51:00 62 /min [facility] height 2022-07-08 15:51:00 149.9 cm [facility] weight 2022-07-08 15:51:00 69.854 [facility] BMI 2022-07-08 15:51:00 31.10 kg/m2 [facility] height 2022-07-08 14:10:00 151.1 cm [facility] weight 2022-07-08 14:10:00 69.582 [facility] BMI 2022-07-08 14:10:00 30.46 kg/m2 [facility] Systolic blood pressure 2022-05-21 14:48:00 126 mm[Hg] [facility] Diastolic blood pressure 2022-05-21 14:48:00 80 mm[Hg] [facility] Heart rate 2022-05-21 14:48:00 76 /min [facility] temperature 2022-05-21 14:48:00 35.56 Mary [facility] Body height 2022-05-21 14:48:00 149.9 cm [facility] weight 2022-05-21 14:48:00 71.668 [facility] BMI 2022-05-21 14:48:00 31.91 kg/m2 [facility] height 2022-05-01 15:08:00 151.1 cm [facility] weight 2022-05-01 15:08:00 72.576 [facility] BMI 2022-05-01 15:08:00 31.78 kg/m2 [facility] Systolic blood pressure 2022-04-23 14:17:00 153 mm[Hg] [facility] Diastolic blood pressure 2022-04-23 14:17:00 65 mm[Hg] [facility] Heart rate 2022-04-23 14:17:00 64 /min [facility] temperature 2022-04-23 14:09:00 36.44 Mary [facility] Body height 2022-04-23 14:09:00 149.9 cm [facility] weight 2022-04-23 14:09:00 72.53 [facility] BMI 2022-04-23 14:09:00 32.30 kg[facility]m2 [facility] height 2022-03-04 11:20:00 59.00 [in_i] Com mon [facility] weight 2022-03-04 11:20:00 158.8 [lb_av] Co mmon [facility] temperature 2022-03-04 11:20:00 97.8 [degF] Com mon [facility] bmi 2022-03-04 11:20:00 32.07 kg/m2 Comm on [facility] oximetry 2022-03-04 11:20:00 97 % Commo n [facility] respiratory rate 2022-03-04 11:20:00 16 /min Common [facility] blood pressure systolic 2022-03-04 11:20:00 130 mm[Hg] [facility] blood pressure diastolic 2022-03-04 11:20:00 70 mm[Hg] [facility] Systolic blood pressure 2021-12-19 22:13:00 116 mm[Hg] [facility] Diastolic blood pressure 2021-12-19 22:13:00 55 mm[Hg] [facility] Heart rate 2021-12-19 22:13:00 66 /min [facility] Body temperature 2021-12-19 22:13:00 36.61 Mary [facility] Respiratory rate 2021-12-19 22:13:00 18 /min [facility] Body height 2021-12-19 20:54:00 152.4 cm [facility] Body weight 2021-12-19 20:54:00 73.483 kg [facility] BMI 2021-12-19 20:54:00 31.64 kg/m2 [facility] Oxygen saturation in Arterial blood by Pulse oximetry 2021-12-19 20:54:00 97 /min [facility] height 2021-12-02 11:00:00 59.00 [in_i] Com [facility] weight 2021-12-02 11:00:00 159.2 [lb_av] Co mmon [facility] temperature 2021-12-02 11:00:00 97.2 [degF] Com [facility] bmi 2021-12-02 11:00:00 32.15 kg/m2 Comm on [facility] oximetry 2021-12-02 11:00:00 98 % Commo n [facility] respiratory rate 2021-12-02 11:00:00 16 /min [facility] blood pressure systolic 2021-12-02 11:00:00 137 mm[Hg] [facility] blood pressure diastolic 2021-12-02 11:00:00 63 mm[Hg] [facility] height 2021-09-02 10:00:00 59.00 [in_i] Com [facility] weight 2021-09-02 10:00:00 164.2 [lb_av] Co mmon [facility] temperature 2021-09-02 10:00:00 97.4 [degF] Com [facility] bmi 2021-09-02 10:00:00 33.16 kg/m2 Comm on [facility] oximetry 2021-09-02 10:00:00 98 % Commo n [facility] respiratory rate 2021-09-02 10:00:00 16 /min [facility] blood pressure systolic 2021-09-02 10:00:00 130 mm[Hg] [facility] blood pressure diastolic 2021-09-02 10:00:00 68 mm[Hg] [facility] height 2021-05-31 11:40:00 59.00 [in_i] Com [facility] weight 2021-05-31 11:40:00 166.2 [lb_av] Co mmon [facility] temperature 2021-05-31 11:40:00 97.6 [degF] Com [facility] bmi 2021-05-31 11:40:00 33.56 kg/m2 Comm on [facility] oximetry 2021-05-31 11:40:00 97 % Commo n [facility] respiratory rate 2021-05-31 11:40:00 18 /min [facility] blood pressure systolic 2021-05-31 11:40:00 137 mm[Hg] [facility] blood pressure diastolic 2021-05-31 11:40:00 53 mm[Hg] [facility] Systolic blood pressure 2020-01-19 14:00:00 181 mm[Hg] [facility] Diastolic blood pressure 2020-01-19 14:00:00 77 mm[Hg] [facility] Respiratory rate 2020-01-19 14:00:00 20 /min [facility] Body height 2020-01-19 14:00:00 152.4 cm [facility] Body weight 2020-01-19 14:00:00 77.111 kg [facility] BMI 2020-01-19 14:00:00 33.20 kg/m2 [facility] Systolic blood pressure 2020-01-19 14:00:00 181 mm[Hg] [facility] Diastolic blood pressure 2020-01-19 14:00:00 77 mm[Hg] [place] [facility] Respiratory rate 2020-01-19 14:00:00 20 /min [facility] Body height 2020-01-19 14:00:00 152.4 cm [facility] Body weight 2020-01-19 14:00:00 77.111 kg [facility] BMI 2020-01-19 14:00:00 33.20 kg/m2 [facility] Procedures Procedure Date / Time Performed Performing Clinician Source EXTERNAL PROVIDER RECORDS 2022-11-10 05:01:00 Doctor Unassigned, [facility] OPERATIVE NOTES 2022-11-05 05:01:00 Doctor Unass igned, [facility] POCT GLYCOSYLATED HEMOGLOBIN (HGB A1C) 2022-11-04 15:02:37 Italia Venegas [facility] POCT GLUCOSE 2022-11-04 14:53:42 Italia Venegas [facility] MEDICAL RELEASE/CLEARANCE FORMS 2022-11-04 05:01:00 Doctor Unassigned, [facility] PATIENT FINANCIAL POLICY 2022-10-31 14:59:26 Doctor Unassigned, [facility] POCT GLUCOSE 2022-07-08 15:58:00 Rubi [facility] MR PITUITARY W WO CONTRAST 2022-03-05 16:14:08 [facility] IMMTRAC2 CONSENT 2021-12-19 05:01:00 Doctor Unas signed, [facility] XR KNEE 3 VW BILATERAL 2020-01-19 14:44:45 Sukhi Dukes [facility] ASSIGNMENT OF BENEFITS 2020-01-19 13:56:05 Charli r Unassigned, [facility] Encounters Start Date/Time End Date/Time Encounter Type Admission Type Attending Clinicians Care Facility Care Department Encounter ID Source 2023-01-05 17:45:08 Outpatient [facility] [id number] [facility] 2022-11-19 09:53:25 Outpatient [facility] [id number] [facility] 2022-11-11 10:19:52 Outpatient [facility] [id number] [facility] 2022-11-04 15:43:03 Outpatient [facility] [id number] [facility] 2022-08-28 13:54:00 Outpatient Ines Grimm [facility] [id number] [facility] 2022-06-26 14:07:56 Outpatient [facility] [id number] [facility] 2022-06-03 15:43:00 Outpatient Deja Galvan [facility] [id number] [facility] 2022-05-26 08:26:32 Outpatient [facility] [id number] [facility] 2022-05-13 11:31:47 Outpatient [facility] [id number] [facility] 2022-05-02 11:32:38 Outpatient [facility] [id number] [facility] 2022-05-01 08:22:19 Outpatient [facility] [id number] [facility] 2022-04-30 08:47:23 Outpatient [facility] [id number] [facility] 2022-04-29 18:33:55 Outpatient [facility] [id number] [facility] 2022-04-23 08:59:34 Outpatient [facility] [id number] [facility] 2022-03-26 10:05:06 Outpatient [facility] [id number] [facility] 2022-02-28 10:38:00 Outpatient Deja Galvan [facility] [id number] [facility] 2021-11-28 11:09:01 Outpatient Galvan, Na STLMLC ST[facility]C [id number] [facility] 2021-09-02 09:44:00 Outpatient Galvan, Na STLMLC ST[facility]C [id number] [facility] 2021-08-29 14:28:01 Outpatient Galvan, Na STLMLC ST[facility] [id number] [facility] 2021-08-14 14:12:45 Outpatient Galvan, Na STLMLC ST[facility]C [id number] [facility] 2021-08-14 13:36:21 Outpatient Aglvan, Na STLMLC ST[facility]C [id number] [facility] 2021-08-14 13:35:58 Outpatient Galvan, Na STLMLC ST[facility]MLC [id number] [facility] 2021-08-14 13:01:57 Outpatient Galvan, Na STLMLC STLMLC [id number] [facility] 2021-08-14 13:01:14 Outpatient Galvan, Na STLMLC ST[facility]C [id number] [facility] 2021-08-14 12:53:14 Outpatient Galvan, Na STLMLC ST[facility]C [id number] [facility] 2021-08-14 12:24:42 Outpatient Galvan, Na STLMLC STLMLC [id number] [facility] 2021-08-14 12:22:02 Outpatient Galvan, Na STLMLC ST[facility]C [id number] [facility] 2021-08-14 11:59:07 Outpatient Galvan, Na STLMLC STLMLC [id number] [facility] 2021-08-14 11:36:02 Outpatient Galvan, Na STLMLC STLMLC [id number] [facility] 2021-08-14 11:32:45 Outpatient Galvan, Na STLMLC ST[facility]MLC [id number] [facility] 2021-08-14 11:19:08 Outpatient Galvan, Na STLMLC STLMLC [id number] [facility] 2021-08-14 11:15:15 Outpatient Galvan, Na STLMLC STLC [id number] [facility] 2024-09-26 09:40:00 2024-09-26 09:40:00 Outpatient DELPHINE TOLENTINO [facility] [id number] [facility] 2023-10-01 00:00:00 2023-10-01 00:00:00 OFFICE VISIT ESTAB PT LEVEL 4 ST[facility] [id number] [facility] 2023-09-28 09:40:00 2023-09-28 09:40:00 Office Visit DELPHINE TOLENTINO [facility] [address] 1.2.840.114 350.1.13.58 9.2.7.2.686 [id number] [facility] 2023-09-04 00:00:00 2023-09-04 00:00:00 OFFICE VISIT ESTAB PT LEVEL 4 STLMLC STLC [id number] [facility] 2023-09-04 00:00:00 2023-09-04 00:00:00 SUB ANNUAL [facility] VISIT STLMLC STLC [id number] [facility] 2023-05-28 00:00:00 2023-05-28 00:00:00 OFFICE VISIT ESTAB PT LEVEL 4 STLMLC STLMLC [id number] [facility] 2023-05-18 09:40:00 2023-05-18 09:40:00 Outpatient DELPHINE TOLENTINO [facility] [id number] [facility] 2023-04-24 00:00:00 2023-04-24 00:00:00 OFFICE VISIT ESTAB PT LEVEL 4 STLMLC STLMLC [id number] [facility] 2023-02-25 00:00:00 2023-02-25 00:00:00 OFFICE VISIT ESTAB PT LEVEL 4 STLMLC STLMLC [id number] [facility] 2022-12-29 14:33:18 2022-12-29 23:59:00 Outpatient LAKISHA MARSHALL [facility] [id number] [facility] 2022-12-29 14:45:00 2022-12-29 15:00:00 Office Visit [facility] 1.2.840.114 350.1.13.10 4.2.7.2.686 [id number] [facility] 2022-12-22 15:45:00 2022-12-22 15:45:00 Outpatient LAKISHA MARSHALL [facility] [id number] [facility] 2022-12-18 00:00:00 2022-12-18 00:00:00 (TEL) STLMLC STLMLC [id number] [facility] 2022-12-17 00:00:00 2022-12-17 00:00:00 (TEL) STLMLC STLMLC [id number] [facility] 2022-12-08 00:00:00 2022-12-08 00:00:00 (TEL) STLMLC STLMLC [id number] [facility] 2022-11-25 00:00:00 2022-11-25 00:00:00 OFFICE VISIT ESTAB PT LEVEL 4 STLMLC STLMLC [id number] [facility] 2022-11-19 15:10:00 2022-11-19 23:59:00 Outpatient LAKISHA MARSHALL [facility] [id number] [facility] 2022-11-19 15:00:00 2022-11-19 15:15:00 [facility] 1.2.840.114 350.1.13.10 4.2.7.2.686 [id number] [facility] 2022-11-19 10:30:00 2022-11-19 11:00:29 Office Visit Day, Flynn Whittaker [facility] [address] 1.2.840.114 350.1.13.58 9.2.7.2.686 [id number] [facility] 2022-11-10 00:00:00 2022-11-10 00:00:00 Orders Only Doctor Unassigned, [facility] 1.2.840.114 350.1.13.10 4.2.7.2.686 [id number] [facility] 2022-11-05 10:31:00 2022-11-05 23:59:00 Hospital Encounter Hilario Alonzo [facility] 1.2.840.114 350.1.13.10 4.2.7.2.686 [id number] [facility] 2022-11-05 00:00:00 2022-11-05 23:59:00 Outpatient R HILARIO ALONZO [facility] [id number] [facility] 2022-11-05 00:00:00 2022-11-05 00:00:00 Telephone Hilario Alonzo [facility] 1.2840.114 350.1.13.10 4.2.7.2.686 [id number] [facility] 2022-11-05 00:00:00 2022-11-05 00:00:00 Orders Only Doctor Unassigned, [facility] 1.2.840.114 350.1.13.10 4.2.7.2.686 [id number] [facility] 2022-11-04 10:00:00 2022-11-04 10:33:36 Office Visit Italia Venegas [facility] [address] 1.2840.114 350.1.13.58 9.2.7.2.686 [id number] [facility] 2022-11-04 00:00:00 2022-11-04 00:00:00 Telephone Susi [facility] 1.2840.114 350.1.13.10 4.2.7.2.686 [id number] [facility] 2022-11-04 00:00:00 2022-11-04 00:00:00 Orders Only Doctor Unassigned, [facility] 1.2840.114 350.1.13.10 4.2.7.2.686 [id number] [facility] 2022-10-31 10:30:00 2022-10-31 11:46:51 Outpatient R SUSI [facility] [id number] [facility] 2022-10-31 10:30:00 2022-10-31 11:46:51 Office Visit Dukes [facility] 1.2840.114 350.1.13.10 4.2.7.2.686 [id number] [facility] 2022-10-31 11:30:00 2022-10-31 11:45:00 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, Manish - Oscar Susi [facility] 1.2840.114 350.1.13.10 4.2.7.2.686 [id number] [facility] 2022-10-31 00:00:00 2022-10-31 00:00:00 Orders Only Doctor Unassigned, [facility] 1.2840.114 350.1.13.10 4.2.7.2.686 [id number] [facility] 2022-10-30 00:00:00 2022-10-30 00:00:00 (TEL) STLMLC STLMLC [id number] [facility] 2022-10-20 00:00:00 2022-10-20 00:00:00 OFFICE VISIT ESTAB PT LEVEL 4 STLMLC STLMLC [id number] [facility] 2022-10-20 00:00:00 2022-10-20 00:00:00 SUB ANNUAL [facility] VISIT STLMLC STLMLC [id number] [facility] 2022-08-18 00:00:00 2022-08-18 00:00:00 (TEL) STLMLC STLMLC [id number] [facility] 2022-07-31 00:00:00 2022-07-31 00:00:00 (TEL) STLMLC STLMLC [id number] [facility] 2022-07-08 09:40:00 2022-07-08 10:28:38 Office Visit Italia Venegas [facility] [address] 1.2.840.114 350.1.13.58 9.2.7.2.686 [id number] [facility] 2022-07-08 08:15:00 2022-07-08 08:34:28 Office Visit KieranTomas gaviria [facility] [address] 1.2.840.114 350.1.13.58 9.2.7.2.686 [id number] [facility] 2022-06-05 00:00:00 2022-06-05 00:00:00 OL DIG E/M SVC 21+ MIN STLMLC STLMLC [id number] [facility] 2022-05-28 09:00:00 2022-05-28 09:00:00 Outpatient FLYNN HERNANDEZ [facility] [id number] [facility] 2022-05-27 12:40:00 2022-05-27 13:25:08 Outpatient DELPHINE TOLENTINO [facility] [id number] [facility] 2022-05-27 07:45:00 2022-05-27 07:56:24 Office Visit Tomas Rodarte [facility] [address] 1.2.840.114 350.1.13.58 9.2.7.2.686 [id number] [facility] 2022-05-21 09:00:00 2022-05-21 09:55:46 Office Visit Day, Flynn Whittaker [facility] [address] 1.2.840.114 350.1.13.58 9.2.7.2.686 [id number] [facility] 2022-05-05 07:45:00 2022-05-05 07:45:00 Outpatient DAY, FLYNN [facility] [id number] [facility] 2022-05-05 00:00:00 2022-05-05 00:00:00 Charges Tomas Rodarte [address] 1.2.840.114 350.1.13.58 9.2.7.2.686 [id number] [facility] 2022-05-01 11:00:00 2022-05-01 11:00:00 Office Visit TOMAS RODARTE [address] 1.2.840.114 350.1.13.58 9.2.7.2.686 [id number] [facility] 2022-04-23 09:30:00 2022-04-23 09:30:00 Consult DAY, FLYNN CHRISTIAN [address] 1.2.840.114 350.1.13.58 9.2.7.2.686 [id number] [facility] 2022-04-11 00:00:00 2022-04-11 00:00:00 (INJ) Injection STLMLC STLMLC [id number] [facility] 2022-04-11 00:00:00 2022-04-11 00:00:00 (TEL) STLMLC ST[facility]MLC [id number] [facility] 2022-04-02 00:00:00 2022-04-02 00:00:00 (TEL) STLMLC STLMLC [id number] [facility] 2022-04-01 00:00:00 2022-04-01 00:00:00 (TEL) STLMLC STLMLC [id number] [facility] 2022-03-05 08:29:28 2022-03-05 23:59:00 Outpatient LORENA WILSON [facility] [id number] [facility] 2022-03-05 08:29:28 2022-03-05 23:59:00 Hospital Encounter Lorena Piper [facility] 1..840.114 350.1.13.10 [id number] [id number] [facility] 2022-03-05 00:00:00 2022-03-05 00:00:00 (TEL) STLMLC STLMLC [id number] [facility] 2022-03-04 00:00:00 2022-03-04 00:00:00 OFFICE VISIT ESTAB PT LEVEL 4 STLMLC STLMLC [id number] [facility] 2021-12-19 16:00:00 2021-12-19 17:00:00 Nurse Visit Therapy, Adc Marlon Quintero [facility] 1..840.114 350.1.13.10 [id number] [id number] [facility] 2021-12-19 16:00:00 2021-12-19 16:00:00 Outpatient MARLON CABALLERO [facility] [id number] [facility] 2021-12-19 00:00:00 2021-12-19 00:00:00 Orders Only Doctor Unassigned, [place] [facility] 1..840.114 350.1.13.10 4.2.7.2.686 [id number] [facility] 2021-12-02 00:00:00 2021-12-02 00:00:00 OFFICE VISIT ESTAB PT LEVEL 4 STLMLC STLMLC [id number] [facility] 2021-09-02 00:00:00 2021-09-02 00:00:00 OFFICE VISIT ESTAB PT LEVEL 4 STLMLC STLMLC [id number] [facility] 2021-05-31 00:00:00 2021-05-31 00:00:00 (COVID Inj) COVID Injection STLMLC STLMLC [id number] [facility] 2021-05-31 00:00:00 2021-05-31 00:00:00 OFFICE VISIT ESTAB PT LEVEL 4 [facility] [id number] [facility] [place] 2021-05-29 00:00:00 2021-05-29 00:00:00 (TEL) STLMLC STLMLC [id number] [facility] [place] 2021-04-18 00:00:00 2021-04-18 00:00:00 (TEL) STLMLC STLMLC [id number] [facility] [place] 2021-02-26 00:00:00 2021-02-26 00:00:00 Outpatient STLMLC STLMLC [id number] [facility] [place] 2021-02-26 00:00:00 2021-02-26 00:00:00 Outpatient STLMLC STLMLC [id number] [facility] [place] 2021-02-26 00:00:00 2021-02-26 00:00:00 Outpatient STLMLC STLMLC [id number] [facility] [place] 2021-02-26 00:00:00 2021-02-26 00:00:00 Outpatient STLMLC STLMLC [id number] [facility] [place] 2020-11-28 00:00:00 2020-11-28 00:00:00 Outpatient STLMLC STLMLC [id number] [facility] [place] 2020-08-13 00:00:00 2020-08-13 00:00:00 Outpatient STLMLC STLMLC [id number] [facility] [place] 2020-05-16 00:00:00 2020-05-16 00:00:00 Outpatient STLMLC STLMLC [id number] [facility] 2020-03-19 11:45:00 2020-03-19 11:45:00 Outpatient [facility] [id number] [facility] 2020-02-14 10:20:00 2020-02-14 10:20:00 Outpatient [facility] [id number] [facility] 2020-02-03 00:00:00 2020-02-03 00:00:00 Telephone [facility] 1.840.114 350.1.13.10 4.2.7.2.686 [id number] [facility] 2020-02-03 00:00:00 2020-02-03 00:00:00 [facility] 1.0.114 350.1.13.10 4.2.7.2.686 [id number] 044 [id number] 2020-02-02 00:00:00 2020-02-02 00:00:00 Telephone [facility] 1.2.840.114 350.1.13.10 4.2.7.2.686 [id number] [facility] 2020-02-02 00:00:00 2020-02-02 00:00:00 Telephone [facility] 1.2.840.114 350.1.13.10 4.2.7.2.686 [id number] 019 [id number] 2020-01-30 09:45:30 2020-01-30 10:05:30 Laboratory Only Lab, Adc Fam Pob I Oneyda Angelayadebayo [facility] Office Building One 1.0.114 350.1.13.10 4.2.7.2.686 [id number] [facility] 2020-01-30 09:45:30 2020-01-30 10:05:30 Laboratory Only Lab, Adc Fam Pob I [facility] Office Building One 1.2.84.114 350.1.13.10 4.2.7.2.686 [id number] 2020-01-30 09:40:00 2020-01-30 09:40:00 Outpatient R JEANNEONEYDAMARIANAStewart [facility] [id number] [facility] 2020-01-19 09:44:00 2020-01-19 23:59:00 Hospital Encounter [facility] 1.2.840.114 350.1.13.10 4.2.7.2.686 [id number] [facility] 2020-01-19 09:44:00 2020-01-19 23:59:00 Hospital Encounter [facility] [place] 1.2.840.114 350.1.13.10 4.2.7.2.686 [id number] 2020-01-19 09:15:00 2020-01-19 09:15:00 Outpatient R [facility] [id number] [facility] 2020-01-19 08:56:21 2020-01-19 09:11:21 Office Visit [facility] 1.2.840.114 350.1.13.10 4.2.7.2.686 [id number] [facility] 2020-01-19 08:56:21 2020-01-19 09:11:21 Office Visit [facility] [place] 1.2.840.114 350.1.13.10 4.2.7.2.686 [id number] 2020-01-19 00:00:00 2020-01-19 00:00:00 Orders Only Doctor Unassigned, [facility] 1.2.840.114 350.1.13.10 4.2.7.2.686 [id number] [facility] 2019-11-11 15:20:00 2019-11-11 15:20:[address] [facility] [id number] [facility] 2019-10-13 09:45:00 2019-10-13 09:45:[address] [facility] [id number] [facility] 2019-07-16 15:50:00 2019-07-16 15:50:[address] [facility] [id number] [facility] [place] 2019-07-11 10:20:00 2019-07-11 10:20:[address] [facility] [id number] [facility] [place] 2019-05-30 08:46:00 2019-05-30 08:46:00 [facility] [id number] [facility] [place] 2019-05-17 14:00:00 2019-05-17 14:00:[address] [facility] [id number] [facility] [place] 2019-04-12 09:40:00 2019-04-12 09:40:[address] [facility] [facility] [id number] [facility] 2019-01-10 13:40:00 2019-01-10 13:40:[address] [facility] [id number] [facility] [place] 2018-11-02 16:10:00 2018-11-02 16:10:[address] [facility] [id number] [facility] [place] 2018-09-21 08:30:00 2018-09-21 08:30:[address] [facility] [facility] [id number] [facility] [place] 2018-03-25 08:52:00 2018-03-25 08:52:00 Outpatient [facility] [id number] [facility] [place] 2018-03-23 08:30:00 2018-03-23 08:30:00 Outpatient [facility] [id number] [facility] [place] 2017-12-21 09:00:00 2017-12-21 09:00:00 Outpatient [facility] [id number] [facility] [place] Results Test Description Test Time Test Comments Results Result Co mments Source CBC W/AUTO [id number] 00:00:00* Test Item Value Reference Range Interpretation Comme nts NUCLEATED RBCS (test code = 94699-6) 0.0 /100 WBC'S See_Comment [Automated messa ge] The system which generated this result transmitted reference range: 0.0 /100 WBC'S. The reference range was not used to interpret this result as normal/abnormal. ABSOLUTE EOSINOPHILS (test code = 51367-7) 0.24 K/UL See_Comment [Automated messa ge] The system which generated this result transmitted reference range: 0.00-0.50 K/UL. The reference range was not used to interpret this result as normal/abnormal. ABSOLUTE LYMPHOCYTES (test code = 73014-8) 3.79 K/UL See_Comment [Automated messa ge] The system which generated this result transmitted reference range: 1.00-4.00 K/UL. The reference range was not used to interpret this result as normal/abnormal. ABSOLUTE MONOCYTES (test code = 93212-6) 0.55 K/UL See_Comment [Automated messa ge] The system which generated this result transmitted reference range: 0.20-1.00 K/UL. The reference range was not used to interpret this result as normal/abnormal. ABSOLUTE NEUTROPHILS (test code = 60652-7) 2.66 K/UL See_Comment [Automated messa ge] The system which generated this result transmitted reference range: 1.50-7.50 K/UL. The reference range was not used to interpret this result as normal/abnormal. BASOPHILS (test code = 24842-4) 0.5 % EOSINOPHILS (test code = 01906-6) 3.3 % HEMATOCRIT (test code = 47206-6) 41.4 % See_Comment [Automated messa ge] The system which generated this result transmitted reference range: 34.0-45.0 %. The reference range was not used to interpret this result as normal/abnormal. HEMOGLOBIN (test code = 718-7) 13.4 G/DL See_Comment [Automated messa ge] The system which generated this result transmitted reference range: 11.5-15.5 G/DL. The reference range was not used to interpret this result as normal/abnormal. LYMPHOCYTES (test code = 30955-4) 51.9 % MCH (test code = 31805-6) 28.2 PG See_Comment [Automated messa ge] The system which generated this result transmitted reference range: 25.0-33.0 PG. The reference range was not used to interpret this result as normal/abnormal. MCHC (test code = 37332-6) 32.4 G/DL See_Comment [Automated messa ge] The system which generated this result transmitted reference range: 31.0-36.0 G/DL. The reference range was not used to interpret this result as normal/abnormal. MCV (test code = 27507-1) 87.2 fL See_Comment [Automated messa ge] The system which generated this result transmitted reference range: 80.0-99.0 fL. The reference range was not used to interpret this result as normal/abnormal. MONOCYTES (test code = 66031-5) 7.5 % NEUTROPHILS (test code = 79415-8) 36.5 % PLATELET COUNT (test code = 03036-9) 279 K/UL See_Comment [Automated messa ge] The system which generated this result transmitted reference range: 130-400 K/UL. The reference range was not used to interpret this result as normal/abnormal. RBC (test code = 22627-0) 4.75 M/UL See_Comment [Automated messa ge] The system which generated this result transmitted reference range: 3.80-5.40 M/UL. The reference range was not used to interpret this result as normal/abnormal. RDW (test code = 67483-1) 13.1 % See_Comment [Automated messa ge] The system which generated this result transmitted reference range: 11.5-15.0 %. The reference range was not used to interpret this result as normal/abnormal. WBC (test code = 68507-0) 7.3 K/UL See_Comment [Automated messa ge] The system which generated this result transmitted reference range: 3.5-11.0 K/UL. The reference range was not used to interpret this result as normal/abnormal. HEMOGLOBIN [id number] 00:00:00* Test Item Value Reference Range Interpretation [facility] HEMOGLOBIN A1c (test code = 4548-4) 8.0 % See_Comment H [Automated messa ge] The system which generated this result transmitted reference range: 4.2-5.6 %. The reference range was not used to interpret this result as normal/abnormal. FREE [id number] 00:00:00* Test Item Value Reference Range Interpretation [facility] FREE T3 (test code = 3051-0) 1.9 PG/ML See_Comment L [Automated messa ge] The system which generated this result transmitted reference range: 2.2-4.2 PG/ML. The reference range was not used to interpret this result as normal/abnormal. LIPID PANEL WITH REFLEX DIRECT [id number] 00:00:00* Test Item Value Reference Range Interpretation [facility] CALC LDL CHOL (test code = 92457-1) 78 MG/DL See_Comment [Automated messa ge] The system which generated this result transmitted reference range: <100 MG/DL. The reference range was not used to interpret this result as normal/abnormal. CHOLESTEROL (test code = 2093-3) 145 MG/DL See_Comment [Automated messa ge] The system which generated this result transmitted reference range: <200 MG/DL. The reference range was not used to interpret this result as normal/abnormal. HDL CHOLESTEROL (test code = 2085-9) 40 MG/DL See_Comment [Automated [employer] ge] The system which generated this result transmitted reference range: >39 MG/DL. The reference range was not used to interpret this result as normal/abnormal. RISK RATIO LDL/HDL (test code = 30965-6) 1.95 RATIO See_Comment [Automated message] The system which generated this result transmitted reference range: <3.22 RATIO. The reference range was not used to interpret this result as normal/abnormal. TRIGLYCERIDES (test code = 2571-8) 176 MG/DL See_Comment H [Automated [employer]] The system which generated this result transmitted reference range: <150 MG/DL. The reference range was not used to interpret this result as normal/abnormal. TSH + FREE T4 [id number] 00:00:00* Test Item Value Reference Range Interpretation Comme nts FREE T4 (THYROXINE) (test code = 3024-7) 0.94 NG/DL See_Comment [Automated message] The system which generated this result transmitted reference range: 0.80-1.90 NG/DL. The reference range was not used to interpret this result as normal/abnormal. TSH, THIRD GENERATION (test code = 23150-4) 0.373 UIU/ML See_Comment L [Automated [employer] Shift] The system which generated this result transmitted reference range: 0.400-4.100 UIU/ML. The reference range was not used to interpret this result as normal/abnormal. ALBUMIN/CREATININE RATIO, RANDOM [id number] 00:00:00* Test Item Value Reference Range Interpretation Comme nts ALBUMIN, URINE, RANDOM (test code = 29731-0) 0.3 MG/DL NOT ESTAB MG/DL CALC ALBUMIN/CREAT, RND (test code = 45468-9) 4 MG/G See_Comment [Automated [employer]] The system which generated this result transmitted reference range: <30 MG/G. The reference range was not used to interpret this result as normal/abnormal. CREATININE, URINE, CONC. (test code = 2161-8) 67.8 MG/DL NOT ESTAB MG/DL COMPREHENSIVE METABOLIC [id number] 00:00:00* Test Item Value Reference Range Interpretation Comme nts ALBUMIN (test code = 1751-7) 3.8 G/DL See_Comment [Automated [employer]] The system which generated this result transmitted reference range: 3.5-5.2 G/DL. The reference range was not used to interpret this result as normal/abnormal. ALKALINE PHOSPHATASE (test code = 6768-6) 67 U/L See_Comment [Automated message] The system which generated this result transmitted reference range: 40-142 U/L. The reference range was not used to interpret this result as normal/abnormal. BILIRUBIN, TOTAL (test code = 1975-2) 0.4 MG/DL See_Comment [Automated message] The system which generated this result transmitted reference range: <=1.2 MG/DL. The reference range was not used to interpret this result as normal/abnormal. BUN (test code = 3094-0) 16 MG/DL See_Comment [Automated messa ge] The system which generated this result transmitted reference range: 8-23 MG/DL. The reference range was not used to interpret this result as normal/abnormal. CALCIUM (test code = 71677-6) 9.7 MG/DL See_Comment [Automated messa ge] The system which generated this result transmitted reference range: 8.5-10.5 MG/DL. The reference range was not used to interpret this result as normal/abnormal. CALC A/G RATIO (test code = 1759-0) 1.1 RATIO See_Comment [Automated messa ge] The system which generated this result transmitted reference range: 1.0-2.6 RATIO. The reference range was not used to interpret this result as normal/abnormal. CALC BUN/CREAT (test code = 3097-3) 15 RATIO See_Comment [Automated messa ge] The system which generated this result transmitted reference range: 6-28 RATIO. The reference range was not used to interpret this result as normal/abnormal. CALC GLOBULIN (test code = 74301-9) 3.4 G/DL See_Comment [Automated messa ge] The system which generated this result transmitted reference range: 1.9-3.7 G/DL. The reference range was not used to interpret this result as normal/abnormal. CARBON DIOXIDE (test code = 1963-8) 28 MEQ/L See_Comment [Automated messa ge] The system which generated this result transmitted reference range: 19-31 MEQ/L. The reference range was not used to interpret this result as normal/abnormal. CHLORIDE (test code = 2075-0) 104 MEQ/L See_Comment [Automated messa ge] The system which generated this result transmitted reference range: 95-107 MEQ/L. The reference range was not used to interpret this result as normal/abnormal. CREATININE (test code = 2160-0) 1.08 MG/DL See_Comment [Automated messa ge] The system which generated this result transmitted reference range: 0.60-1.30 MG/DL. The reference range was not used to interpret this result as normal/abnormal. eGFR (2020 CKD-EPI) (test code = 08654-5) 53 ML/MIN/1.73 See_Comment L [Automated messa ge] The system which generated this result transmitted reference range: >60 ML/MIN/1.73. The reference range was not used to interpret this result as normal/abnormal. GLUCOSE (test code = 1558-6) 123 MG/DL See_Comment H [Automated messa ge] The system which generated this result transmitted reference range: 70-99 MG/DL. The reference range was not used to interpret this result as normal/abnormal. POTASSIUM (test code = 2823-3) 3.9 MEQ/L See_Comment [Automated messa ge] The system which generated this result transmitted reference range: 3.5-5.4 MEQ/L. The reference range was not used to interpret this result as normal/abnormal. PROTEIN, TOTAL (test code = 2885-2) 7.2 G/DL See_Comment [Automated messa ge] The system which generated this result transmitted reference range: 6.1-8.3 G/DL. The reference range was not used to interpret this result as normal/abnormal. AST (test code = 1920-8) 42 U/L See_Comment H [Automated messa ge] The system which generated this result transmitted reference range: 9-40 U/L. The reference range was not used to interpret this result as normal/abnormal. ALT (test code = 1742-6) 55 U/L See_Comment H [Automated messa ge] The system which generated this result transmitted reference range: 5-40 U/L. The reference range was not used to interpret this result as normal/abnormal. SODIUM (test code = 2951-2) 145 MEQ/L See_Comment [Automated messa ge] The system which generated this result transmitted reference range: 133-146 MEQ/L. The reference range was not used to interpret this result as normal/abnormal. FREE [id number] 00:00:00* Test Item Value Reference Range Interpretation Comme nts FREE T3 (test code = 3051-0) 2.3 PG/ML See_Comment [Automated messa ge] The system which generated this result transmitted reference range: 2.2-4.2 PG/ML. The reference range was not used to interpret this result as normal/abnormal. TSH + FREE T4 [id number] 00:00:00* Test Item Value Reference Range Interpretation Comme nts FREE T4 (THYROXINE) (test code = 3024-7) 1.27 NG/DL See_Comment [Automated message] The system which generated this result transmitted reference range: 0.80-1.90 NG/DL. The reference range was not used to interpret this result as normal/abnormal. TSH, THIRD GENERATION (test code = 70725-2) 0.087 UIU/ML See_Comment L [Automated messa ge] The system which generated this result transmitted reference range: 0.400-4.100 UIU/ML. The reference range was not used to interpret this result as normal/abnormal. CBC W/AUTO [id number] 00:00:00* Test Item Value Reference Range Interpretation Comme nts NUCLEATED RBCS (test code = 61332-5) 0.0 /100 WBC'S See_Comment [Automated messa ge] The system which generated this result transmitted reference range: 0.0 /100 WBC'S. The reference range was not used to interpret this result as normal/abnormal. ABSOLUTE EOSINOPHILS (test code = 16609-9) 0.25 K/UL See_Comment [Automated messa ge] The system which generated this result transmitted reference range: 0.00-0.50 K/UL. The reference range was not used to interpret this result as normal/abnormal. ABSOLUTE LYMPHOCYTES (test code = 18075-5) 3.40 K/UL See_Comment [Automated messa ge] The system which generated this result transmitted reference range: 1.00-4.00 K/UL. The reference range was not used to interpret this result as normal/abnormal. ABSOLUTE MONOCYTES (test code = 85641-8) 0.52 K/UL See_Comment [Automated messa ge] The system which generated this result transmitted reference range: 0.20-1.00 K/UL. The reference range was not used to interpret this result as normal/abnormal. ABSOLUTE NEUTROPHILS (test code = 97828-0) 3.10 K/UL See_Comment [Automated messa ge] The system which generated this result transmitted reference range: 1.50-7.50 K/UL. The reference range was not used to interpret this result as normal/abnormal. BASOPHILS (test code = 36848-1) 0.5 % EOSINOPHILS (test code = 52921-7) 3.4 % HEMATOCRIT (test code = 16755-3) 42.9 % See_Comment [Automated messa ge] The system which generated this result transmitted reference range: 34.0-45.0 %. The reference range was not used to interpret this result as normal/abnormal. HEMOGLOBIN (test code = 718-7) 13.8 G/DL See_Comment [Automated messa ge] The system which generated this result transmitted reference range: 11.5-15.5 G/DL. The reference range was not used to interpret this result as normal/abnormal. LYMPHOCYTES (test code = 53535-7) 46.4 % MCH (test code = 00986-7) 27.1 PG See_Comment [Automated messa ge] The system which generated this result transmitted reference range: 25.0-33.0 PG. The reference range was not used to interpret this result as normal/abnormal. MCHC (test code = 66488-7) 32.2 G/DL See_Comment [Automated messa ge] The system which generated this result transmitted reference range: 31.0-36.0 G/DL. The reference range was not used to interpret this result as normal/abnormal. MCV (test code = 79750-4) 84.1 fL See_Comment [Automated messa ge] The system which generated this result transmitted reference range: 80.0-99.0 fL. The reference range was not used to interpret this result as normal/abnormal. MONOCYTES (test code = 74381-2) 7.1 % NEUTROPHILS (test code = 48849-4) 42.3 % PLATELET COUNT (test code = 28404-8) 283 K/UL See_Comment [Automated messa ge] The system which generated this result transmitted reference range: 130-400 K/UL. The reference range was not used to interpret this result as normal/abnormal. RBC (test code = 97499-4) 5.10 M/UL See_Comment [Automated messa ge] The system which generated this result transmitted reference range: 3.80-5.40 M/UL. The reference range was not used to interpret this result as normal/abnormal. RDW (test code = 26593-1) 13.7 % See_Comment [Automated messa ge] The system which generated this result transmitted reference range: 11.5-15.0 %. The reference range was not used to interpret this result as normal/abnormal. WBC (test code = 82895-1) 7.3 K/UL See_Comment [Automated messa ge] The system which generated this result transmitted reference range: 3.5-11.0 K/UL. The reference range was not used to interpret this result as normal/abnormal. HEMOGLOBIN [id number] 00:00:00* Test Item Value Reference Range Interpretation Comme [facility] HEMOGLOBIN A1c (test code = 4548-4) 8.1 % See_Comment H [Automated messa ge] The system which generated this result transmitted reference range: 4.2-5.6 %. The reference range was not used to interpret this result as normal/abnormal. FREE [id number] 00:00:00* Test Item Value Reference Range Interpretation Comme [facility] FREE T3 (test code = 3051-0) 1.7 PG/ML See_Comment L [Automated messa ge] The system which generated this result transmitted reference range: 2.2-4.2 PG/ML. The reference range was not used to interpret this result as normal/abnormal. LIPID PANEL WITH REFLEX DIRECT [id number] 00:00:00* Test Item Value Reference Range Interpretation Comme [facility] CALC LDL CHOL (test code = 03728-3) 93 MG/DL See_Comment [Automated messa ge] The system which generated this result transmitted reference range: <100 MG/DL. The reference range was not used to interpret this result as normal/abnormal. CHOLESTEROL (test code = 2093-3) 173 MG/DL See_Comment [Automated messa ge] The system which generated this result transmitted reference range: <200 MG/DL. The reference range was not used to interpret this result as normal/abnormal. HDL CHOLESTEROL (test code = 2085-9) 47 MG/DL See_Comment [Automated messa ge] The system which generated this result transmitted reference range: >39 MG/DL. The reference range was not used to interpret this result as normal/abnormal. RISK RATIO LDL/HDL (test code = 07108-1) 1.98 RATIO See_Comment [Automated message] The system which generated this result transmitted reference range: <3.22 RATIO. The reference range was not used to interpret this result as normal/abnormal. TRIGLYCERIDES (test code = 2571-8) 235 MG/DL See_Comment H [Automated messa ge] The system which generated this result transmitted reference range: <150 MG/DL. The reference range was not used to interpret this result as normal/abnormal. TSH + FREE T4 [id number] 00:00:00* Test Item Value Reference Range Interpretation Comme nts FREE T4 (THYROXINE) (test code = 3024-7) 0.73 NG/DL See_Comment L [Automated message] The system which generated this result transmitted reference range: 0.80-1.90 NG/DL. The reference range was not used to interpret this result as normal/abnormal. TSH, THIRD GENERATION (test code = 26729-0) 0.490 UIU/ML See_Comment [Automated messa ge] The system which generated this result transmitted reference range: 0.400-4.100 UIU/ML. The reference range was not used to interpret this result as normal/abnormal. ALBUMIN/CREATININE RATIO, RANDOM [id number] 00:00:00* Test Item Value Reference Range Interpretation Comme nts ALBUMIN, URINE, RANDOM (test code = 36360-6) 0.2 MG/DL NOT ESTAB MG/DL CALC ALBUMIN/CREAT, RND (test code = 34871-8) 2 MG/G See_Comment [Automated messa ge] The system which generated this result transmitted reference range: <30 MG/G. The reference range was not used to interpret this result as normal/abnormal. CREATININE, URINE, CONC. (test code = 2161-8) 83.2 MG/DL NOT ESTAB MG/DL COMPREHENSIVE METABOLIC [id number] 00:00:00* Test Item Value Reference Range Interpretation Comme nts ALBUMIN (test code = 1751-7) 4.3 G/DL See_Comment [Automated messa ge] The system which generated this result transmitted reference range: 3.5-5.2 G/DL. The reference range was not used to interpret this result as normal/abnormal. ALKALINE PHOSPHATASE (test code = 6768-6) 79 U/L See_Comment [Automated message] The system which generated this result transmitted reference range: 40-142 U/L. The reference range was not used to interpret this result as normal/abnormal. BILIRUBIN, TOTAL (test code = 1975-2) 0.4 MG/DL See_Comment [Automated message] The system which generated this result transmitted reference range: <=1.2 MG/DL. The reference range was not used to interpret this result as normal/abnormal. BUN (test code = 3094-0) 16 MG/DL See_Comment [Automated messa ge] The system which generated this result transmitted reference range: 8-23 MG/DL. The reference range was not used to interpret this result as normal/abnormal. CALCIUM (test code = 87004-2) 9.6 MG/DL See_Comment [Automated messa ge] The system which generated this result transmitted reference range: 8.5-10.5 MG/DL. The reference range was not used to interpret this result as normal/abnormal. CALC A/G RATIO (test code = 1759-0) 1.8 RATIO See_Comment [Automated messa ge] The system which generated this result transmitted reference range: 1.0-2.6 RATIO. The reference range was not used to interpret this result as normal/abnormal. CALC BUN/CREAT (test code = 3097-3) 16 RATIO See_Comment [Automated messa ge] The system which generated this result transmitted reference range: 6-28 RATIO. The reference range was not used to interpret this result as normal/abnormal. CALC GLOBULIN (test code = 27139-9) 2.4 G/DL See_Comment [Automated messa ge] The system which generated this result transmitted reference range: 1.9-3.7 G/DL. The reference range was not used to interpret this result as normal/abnormal. CARBON DIOXIDE (test code = 1963-8) 30 MEQ/L See_Comment [Automated messa ge] The system which generated this result transmitted reference range: 19-31 MEQ/L. The reference range was not used to interpret this result as normal/abnormal. CHLORIDE (test code = 2075-0) 104 MEQ/L See_Comment [Automated messa ge] The system which generated this result transmitted reference range: 95-107 MEQ/L. The reference range was not used to interpret this result as normal/abnormal. CREATININE (test code = 2160-0) 0.99 MG/DL See_Comment [Automated messa ge] The system which generated this result transmitted reference range: 0.60-1.30 MG/DL. The reference range was not used to interpret this result as normal/abnormal. eGFR (2020 CKD-EPI) (test code = 89987-2) 59 ML/MIN/1.73 See_Comment L [Automated messa ge] The system which generated this result transmitted reference range: >60 ML/MIN/1.73. The reference range was not used to interpret this result as normal/abnormal. GLUCOSE (test code = 1558-6) 122 MG/DL See_Comment H [Automated messa ge] The system which generated this result transmitted reference range: 70-99 MG/DL. The reference range was not used to interpret this result as normal/abnormal. POTASSIUM (test code = 2823-3) 4.3 MEQ/L See_Comment [Automated messa ge] The system which generated this result transmitted reference range: 3.5-5.4 MEQ/L. The reference range was not used to interpret this result as normal/abnormal. PROTEIN, TOTAL (test code = 2885-2) 6.7 G/DL See_Comment [Automated messa ge] The system which generated this result transmitted reference range: 6.1-8.3 G/DL. The reference range was not used to interpret this result as normal/abnormal. AST (test code = 1920-8) 30 U/L See_Comment [Automated messa ge] The system which generated this result transmitted reference range: 9-40 U/L. The reference range was not used to interpret this result as normal/abnormal. ALT (test code = 1742-6) 36 U/L See_Comment [Automated messa ge] The system which generated this result transmitted reference range: 5-40 U/L. The reference range was not used to interpret this result as normal/abnormal. SODIUM (test code = 2951-2) 144 MEQ/L See_Comment [Automated messa ge] The system which generated this result transmitted reference range: 133-146 MEQ/L. The reference range was not used to interpret this result as normal/abnormal. POCT glycosylated hemoglobin (Hb A1C) docked [id number] 15:02:37* Test Item Value Reference Range Interpretation Comme nts Hemoglobin A1C (test code = 4548-4) 7.3 % 4.0-6.0 A Lab Interpretation (test cod e = 84132-3) [facility]normal [facility] [id number] 14:53:42* Test Item Value Reference Range Interpretation Comme nts Glucose Blood, POC (test cod e = 3846021) 112 mg/dL 70-180 [facility] [id number] 15:58:00* Test Item Value Reference Range Interpretation Comme nts Glucose Blood, POC (test cod e = 8570275) 77 mg/dL 70-180 [facility] 3 VW [id number] 15:08:50Status post bilateral total knee replacement with cemented implants there is a slight lucency in the medial tibial plateau of the left knee but otherwise the implants are very well seated and in normal alignment. ?[facility], BONE DENSITY AXIAL SKELEDEXA, BONE DENSITY AXIAL SKELEChest Pa And Lat (2 Views)Chest Pa And Lat (2 Views)
[2023-10-16 09:27] LABS: Absolute Basophils 0.1 K/uL (0-0.5); Absolute Eosinophils 0.4 K/uL (0-0.5); Absolute Lymphocytes (CBC) 2.4 K/uL (0.7-4.9); Absolute Monocytes 0.9 K/uL (0.1-1.3); Absolute Neutrophil 7.5 K/uL (1.8-8.0); Basophils % 0.5 % (0-1.3); Eosinophils % 3.6 % (0-4.4); Hemoglobin 13.4 g/dL (12.0-15.0); Lymphocytes % 21.4 % (15.3-44.8); MCH 27.8 pg (27.0-35.0); MCHC 32.8 g/dL (32.0-36.0); MCV 84.7 fL (80-100); MPV 9.1 fL (7.6-11.3); Monocytes % 7.6 % (3.3-12.3); Neutrophils % 66.9 % (41.7-73.7); Nucleated Red Blood Cells % 0.1 % (0-0); Platelets 269 thou/uL (152-406); RBC Red Blood Cell Count 4.85 M/uL (3.86-4.86); Red Cell Distribution Width 14.1 % (12.1-15.2)
[2023-10-16 09:37] LABS: SARS-CoV-2 Antigen CONTROL BLUE LINE VIS/BG OK; SARS-CoV-2 Antigen Rapid Res Negative (Negative)
[2023-10-16 09:48] LABS: Anion Gap 7.6 mEq/L (5.0-15.0); Potassium 3.6 mEq/L (3.5-5.1); Troponin High Sensitivity 4.9 pg/mL (<58.9)
[2023-10-16] MEDS ORDERED: LEVALBUTEROL 1.25 MG/3 ML NEB ONE (09:48)
--- NOTE | 2023-10-16 09:57 | RAD REPORT ---
EXAM DESCRIPTION: RAD - Chest Pa And Lat (2 Views) - 10/16/2023 9:27 am CLINICAL HISTORY: COUGH Chest pain. COMPARISON: Chest Pa And Lat (2 Views) dated 03/05/2022 FINDINGS: Emphysematous changes are present. Interstitial markings are prominent bilaterally which m ay indicate interstitial pulmonary edema or a viral infection. The heart is mildly enlarged in size. No displaced fractures. Small hiatal hernia.
--- NOTE | 2023-10-16 10:29 | EDPHYS ---
Physician Documentation [facility] Name: Tiffanie Babin Age: 78 yrs Sex: Female : 1945 Arrival Date: 10/16/2023 Time: 08:45 Bed 18 Private MD: ED Physician Pavel Finney HPI: 10/15 09:05 This 78 yrs old Female presents to ER via Unassigned with complaints of cold rn like symptoms, Chest Tightness, Painful Cough. 09:05 The patient or guardian reports cough, described as mild, with productive sputum. rn Onset: The symptoms/episode began/occurred 6 day(s) ago. Severity of symptoms: At their worst the symptoms were mild, in the emergency department the symptoms are unchanged. Modifying factors: The symptoms are alleviated by nothing, the symptoms are aggravated by nothing. Associated signs and symptoms: Pertinent positives: rhinorrhea, sore throat, Pertinent negatives: chest pain. The patient has experienced similar episodes in the past. The patient has not recently seen a physician. Patient reports productive cough, subjective fever, runny nose, malaise. Mild shortness of breath. Reports history of asthma. No hemoptysis. No history of DVT or PE. Has chest pain but only with coughing.. Historical: - Allergies: 09:08 Codeine; ap3 - PMHx: 09:08 adrenal insufficiency; diabetes mellitus; Glaucoma; Hypercholesterolemia; Hypertensive ap3 disorder; Hypothyroidism; - PSHx: 09:08 brain tumor; Cholecystectomy; Total abdominal hysterectomy; ap3 - Immunization history:: Client reports receiving the 2nd dose of the Covid vaccine, Last tetanus immunization: up to date Pneumococcal vaccine is up to date, Flu vaccine is up to date. - Social history:: Smoking status: Patient denies any tobacco usage or history of. - Family history:: not pertinent. - Hospitalizations: : No recent hospitalization is reported. ROS: 09:05 Constitutional: Negative for fever, chills, and weight loss, ENT: Negative for injury, rn pain, and discharge, Neck: Negative for injury, pain, and swelling, Cardiovascular: Negative for chest pain, palpitations, and edema, Respiratory: Positive for cough and shortness of breath Abdomen/GI: Negative for abdominal pain, nausea, vomiting, diarrhea, and constipation, Back: Negative for injury and pain, MS/Extremity: Negative for injury and deformity, Skin: Negative for injury, rash, and discoloration, Neuro: Positive for generalized weakness Exam: 09:05 Constitutional: This is a well developed, well nourished patient who is awake, alert, rn and in no acute distress. Ambulatory to room without difficulty or assistance Head/Face: Normocephalic, atraumatic. Cardiovascular: Regular rate and rhythm. No pulse deficits. Respiratory: Focal wheezing right midlung. No tachypnea. No retractions Abdomen/GI: Soft, non-tender MS/ Extremity: Pulses equal, no cyanosis. Neuro: Awake and alert, GCS 15 09:45 ECG was reviewed by the Attending Physician. rn Vital Signs: 09:06 BP 143 / 57; Pulse 94; Resp 19; Temp 98.6; Pulse Ox 98% ; Weight 73.03 kg; Height 4 ft. ap3 11 in. ; 09:44 BP 114 / 42; Pulse 76; Resp 18 S; Pulse Ox 94% on R/A; kc6 10:27 BP 111 / 68; kc6 09:06 Body Mass Index 32.52 (73.03 kg, 149.86 cm) ap3 MDM: 08:55 Patient medically screened. rn 10:26 Differential Diagnosis: Bronchitis Influenza Upper Respiratory Infection Viral Syndrome rn Pneumonia. Data reviewed: vital signs, nurses notes, lab test result(s), EKG, radiologic studies, plain films, and as a result, I will discharge patient. Counseling: I had a detailed discussion with the patient and/or guardian regarding the historical points, exam findings, and any diagnostic results supporting the discharge/admit diagnosis, lab results, radiology results, the need for outpatient follow up, to return to the emergency department if symptoms worsen or persist or if there are any questions or concerns that arise at home. Special discussion: I discussed with the patient/guardian in detail that at this point there is no indication for admission to the hospital. It is understood, however, that if the symptoms persist or worsen the patient needs to return immediately for re-evaluation. 10/15 09:04 Order name: CBC with Diff; Complete Time: :43 rn 10/15 09:04 Order name: Basic Metabolic Panel; Complete Time: 10: rn 10/15 09:04 Order name: Flu; Complete Time: 10: rn 10/15 09:04 Order name: SARS RAPID; Complete Time: rn 10/15 09:04 Order name: BNP; Complete Time: 10:06 rn 10/15 09:04 Order name: Troponin High Sensitivity; Complete Time: 10: rn 10/15 08:56 Order name: XRAY Chest Pa And Lat (2 Views); Complete Time: 10:06 rn 10/15 09:04 Order name: EKG; Complete Time: 09:05 rn 10/15 09:04 Order name: IV Start; Complete Time: 09:20 rn 10/15 09:04 Order name: EKG - Nurse/Tech; Complete Time: :20 rn EC:45 Rate is 81 beats/min. Rhythm is regular. QRS [place] is Normal. [place] interval is normal. QRS rn interval is normal. QT interval is normal. No Q waves. T waves are Normal. No ST changes noted. Clinical impression: NSR w/ Non-specific ST/T Changes. Interpreted by me. Reviewed by me. Administered Medications: 09:51 Drug: Levalbuterol Inhalation 1.25 mg Inhalation once Route: Inhalation; kc6 10:02 Follow up: Response: No adverse reaction [facility] 10:30 Drug: AZITHromycin PO 500 mg PO once Route: PO; kc6 Disposition Summary: 10/16/23 10:28 Discharge Ordered Notes: Location: Home rn Problem: new rn Symptoms: have improved rn Condition: Stable rn Diagnosis - Emphysema, unspecified rn Followup: rn - With: Private Physician - When: As needed - Reason: Recheck today's complaints, Re-evaluation by your physician Discharge Instructions: - Discharge Summary Sheet rn - Chronic Obstructive Pulmonary Disease rn - Cough, Adult rn Forms: - Medication Reconciliation Form rn - Thank You Letter rn - Antibiotic financial internship - Prescription Opioid Use rn - Patient Portal Instructions rn - Leadership Thank You Letter rn Prescriptions: - Zithromax Z-Pb 250 mg Oral Tablet - take 1 tablet ORAL route as directed for 5 days Day 1 - take two (2) tablets rn one time. Day 2, 3, 4 , 5 take one (1) tablet once daily.; 6 tablet; Refills: 0, Product Selection Permitted Signatures: Dispatcher [employer] Pavel Castillo MD MD rn Prokisch, Amanda, RN RN [email or web address] Gema Ann RN RN kc6
--- NOTE | 2023-10-16 10:29 | ER ---
Nurse's Notes [facility] Name: Tiffanie Babin Age: 78 yrs Sex: Female : 1945 Arrival Date: 10/16/2023 Time: 08:45 Bed 18 Private MD: Diagnosis: Emphysema, unspecified Presentation: 10/15 09:06 Chief complaint: Patient states: she has been having cough, and congestion for approx 6 ap3 days. patient complains of painful cough for 2 days now. Coronavirus screen: Client presents with at least one sign or symptom that may indicate coronavirus-19. Ebola Screen: No symptoms or risks identified at this time. Initial Sepsis Screen: Does the patient meet any 2 criteria? HR > 90 bpm. Does the patient have a suspected source of infection? No. Patient's initial sepsis screen is negative. Risk Assessment: Do you want to hurt yourself or someone else? Patient reports no desire to harm self or others. Onset of symptoms was October 10, 2023. 09:06 Method Of Arrival: Ambulatory ap3 09:06 Acuity: RICHA 3 ap3 Triage Assessment: 09:08 General: Appears in no apparent distress. ill, Behavior is calm, cooperative, ap3 appropriate for age. Pain: Complains of pain in chest. Neuro: Level of Consciousness is awake, alert, obeys commands, Oriented to person, place, time, situation. Cardiovascular: Patient's skin is warm and dry. Respiratory: Reports cough that is pain with cough Airway is patent Respiratory effort is even, unlabored, Respiratory pattern is regular, symmetrical. Historical: - Allergies: 09:08 Codeine; ap3 - PMHx: 09:08 adrenal insufficiency; diabetes mellitus; Glaucoma; Hypercholesterolemia; Hypertensive ap3 disorder; Hypothyroidism; - PSHx: 09:08 brain tumor; Cholecystectomy; Total abdominal hysterectomy; ap3 - Immunization history:: Client reports receiving the 2nd dose of the Covid vaccine, Last tetanus immunization: up to date Pneumococcal vaccine is up to date, Flu vaccine is up to date. - Social history:: Smoking status: Patient denies any tobacco usage or history of. - Family history:: not pertinent. - Hospitalizations: : No recent hospitalization is reported. Screenin:20 [facility] ED Fall Risk Assessment (Adult) History of falling in the last 3 months, kc6 including since admission No falls in past 3 months (0 pts) Confusion or Disorientation No (0 pts) Intoxicated or Sedated No (0 pts) Impaired Gait No (0 pts) Mobility Assist Device Used No (0 pt) Altered Elimination No (0 pt) Score/Fall Risk Level 0 - 2 = Low Risk. Abuse screen: Denies threats or abuse. Denies injuries from another. Nutritional screening: No deficits noted. Tuberculosis screening: No symptoms or risk factors identified. Assessment: 09:43 General: Appears in no apparent distress. comfortable, well groomed, well developed, kc6 Behavior is calm, cooperative, appropriate for age. Pain: Complains of pain in chest Pain does not radiate. Pain began 6 days ago. Neuro: Level of Consciousness is awake, alert, obeys commands, Oriented to person, place, time, situation, Appropriate for age. Cardiovascular: Reports chest pain, Heart tones S1 S2 present Capillary refill < 3 seconds Rhythm is sinus rhythm. Respiratory: Reports shortness of breath on exertion cough that is persistent Airway is patent Trachea midline Respiratory effort is even, unlabored, Respiratory pattern is regular, symmetrical. GI: No signs and/or symptoms were reported involving the gastrointestinal system. : No signs and/or symptoms were reported regarding the genitourinary system. EENT: No signs and/or symptoms were reported regarding the EENT system. Derm: No signs and/or symptoms reported regarding the dermatologic system. Skin is intact, is healthy with good turgor, Skin is pink, warm \T\ dry. Musculoskeletal: No signs and/or symptoms reported regarding the musculoskeletal system. Circulation, motion, and sensation intact. Capillary refill < 3 seconds, Range of motion: intact in all extremities. 10:23 Reassessment: Patient appears in no apparent distress at this time. No changes from kc6 previously documented assessment. Patient and/or family updated on plan of care and expected duration. Pain level reassessed. Patient is alert, oriented x 3, equal unlabored respirations, skin warm/dry/pink. Vital Signs: 09:06 BP 143 / 57; Pulse 94; Resp 19; Temp 98.6; Pulse Ox 98% ; Weight 73.03 kg; Height 4 ft. ap3 11 in. ; 09:44 BP 114 / 42; Pulse 76; Resp 18 S; Pulse Ox 94% on R/A; kc6 10:27 BP 111 / 68; kc6 09:06 Body Mass Index 32.52 (73.03 kg, 149.86 cm) ap3 ED Course: 08:50 Patient arrived in ED. mr 08:55 Pavel Finney MD is Attending Physician. rn 09:06 Gema Ann, RN is Primary Nurse. kc6 09:08 Triage completed. ap3 09:09 shelter monitor on. Pulse ox on. NIBP on. ap3 09:20 SARS RAPID Sent. kc6 09:20 Flu Sent. kc6 09:20 Inserted saline lock: 18 gauge in right antecubital area, using aseptic technique. kc6 Blood collected. Patient maintains SpO2 saturation greater than 95% on room air. 09:21 Patient has correct armband on for positive identification. Bed in low position. Call kc6 light in reach. Side rails up X 1. Adult w/ patient. 09:21 Arm band placed on. kc6 09:28 XRAY Chest Pa And Lat (2 Views) In Process Unspecified. EDMS 10:40 No provider procedures requiring assistance completed. IV discontinued, intact, kc6 bleeding controlled, No redness/swelling at site. Pressure dressing applied. Administered Medications: 09:51 Drug: Levalbuterol Inhalation 1.25 mg Inhalation once Route: Inhalation; kc6 10:02 Follow up: Response: No adverse reaction kc6 10:30 Drug: AZITHromycin PO 500 mg PO once Route: PO; kc6 Medication: 10:40 VIS not applicable for this client. kc6 Outcome: 10:28 Discharge ordered by . rn 10:40 Discharged to home ambulatory, with family, with significant other, kc6 10:40 Condition: good 10:40 Discharge instructions given to patient, Instructed on discharge instructions, follow up and referral plans. medication usage, Demonstrated understanding of instructions, follow-up care, medications, Prescriptions given X 1, 10:53 Patient left the ED. kc6 Signatures: Dispatcher [employer] EDMS [place] Re, Reg Reg mr Pavel Finney MD MD rn Prokisch, Amanda, RN RN ap3 Gema Ann, JOSHUA RN kc6 Corrections: (The following items were deleted from the chart) 10:23 09:44 Pulse 76bpm; Resp 18bpm; Spontaneous; Pulse Ox 94% RA; kc6 kc6
[2023-10-16] MEDS ORDERED: AZITHROMYCIN 250 MG TAB ONE (10:31)
[2023-10-16 11:45] VITALS: BP 111/68; TEMP 98.6; O2SAT 94
--- NOTE | 2023-10-17 09:40 | EKG ---
Test Date: 2023-10-16 Test Time: 08:12:13 Project Admin: ESEQUIEL MEASUREMENT RESULTS: Intervals: Rate: 81 AR: 170 QRSD: 112 QT: 394 QTc: 457 [place]: P: 54 AR: 170 QRS: 154 T: 18 INTERPRETIVE STATEMENTS: Normal sinus rhythm Low voltage QRS Right bundle branch block Abnormal ECG Compared to ECG 04/20/2014 09:31:22 Low QRS voltage now present Right bundle-branch block now present Ventricular premature complex(es) no longer present ST (T wave) deviation no longer present Possible ischemia no longer present Electronically Signed On 10-17-23 09:38:25 CDT by Carlos Hernandez
== END 2023-10-16 10:53 | disposition home or self-care (01) ==
LOC: ER 08:45
DX: J43.9 Emphysema, unspecified (principal); I10 Essential (primary) hypertension; E11.9 Type 2 diabetes mellitus without complications; Z11.52 Encounter for screening for COVID-19; Z88.5 Allergy status to narcotic agent
CPT/HCPCS: 93005; 85025; 80048; 36415; 84484; 83880; 87804 ×2; 71046; 99285; 87811; J7614